=== PATIENT | male | born 1955 | race Caucasian/White ===

== ENCOUNTER → 2020-01-02 06:53 | Outpatient (CLI) | payer OTHER, MEDICARE, SELFPAY ==
--- NOTE | 2020-01-10 16:38 | P.PFT.S_ITS ---
Pulmonary Function Test Referral & Results Date Patient Seen: 01/02/20 Requesting provider: Jennifer More Indication: COPD Results: The spirometry demonstrates an FVC of 3.41 L which is 80% of predicted. The FEV1 was measured at 1.95 L which is 61% of predicted. The FEV1/FVC ratio was 57 which is 76% of predicted. Following the administration of bronchodilator there was a 51% improvement in FEF 25-75%. Lung volumes show an SVC of 3.37 L which is 77% of predicted. The diffusing capacity was measured at 24.77 which is 83% of predicted. No hemoglobin value was provided, so no correction for potential anemia could be made, if appropriate. The maximum voluntary ventilation was reduced Interpretation: This study demonstrates moderate obstructive lung disease based on reduction FEV1. There is some limited evidence of benefit following bronchodilator administration, particularly small airway flow based on improvement in FEF 25- 75% There may be mild restrictive lung disease based on slight reduction SVC There is also very slight reduction in diffusing capacity suggesting an element of disease at the capillary alveolar level, unless patient is anemic of course.
== END ==
PROVIDERS: PCP Student in an Organized Health Care Education/Training Program; Referring Provider Student in an Organized Health Care Education/Training Program; Visit Provider Student in an Organized Health Care Education/Training Program
DX: J44.9 Chronic obstructive pulmonary disease, unspecified (principal)
CPT/HCPCS: 94060; 94726; 94729

== ENCOUNTER → 2020-01-08 09:26 | Outpatient (CLI) | payer OTHER, MEDICARE, SELFPAY ==
--- NOTE | 2020-01-08 11:01 | DIET.PN ---
Diabetes Intake: Initial Assessment Assess: Mr. Steele is a 64 YOM referred for type 2 diabetes. He is newly diagnosed (Nov 2019). He reports dx of metabolic syndrome x 15 yrs ago. At that time he started the [place] diet and regular exercise. He lost 65 lbs and was able to reach normal laboratory values. He slowly began going back to old habits. He was recently diagnosed with COPD which he states he has a family hx of on his mother?s side. He is eager to learn healthy eating habits. He was placed on metformin x 3 wks ago and does not have a glucometer. Labs: Per pt report: A1c: 11.4 FB Meds: 850 mg BID; statin Wt: 227 Ht: 68? BMI: 34.5 DX: Altered nutrition related laboratory values related to impaired glucose metabolism, lack of previous exposure to nutrition information as evidenced by pt report, diagnosis of diabetes, previous diet high in refined carbohydrates. Intervention: 1. Completed intake assessment. Discussed barriers to care. 2. Discussed pathophysiology of diabetes. Reviewed A1c and its correlation to blood glucose numbers. Discussed recommended BG ranges. 3. Discussed importance of self-monitoring, how often, and when to check. Provided demonstration on use of glucometer. 4. Recommended pt monitor FBG and alternating 2 hr PP mealtime. Will request Rx from provider. 5. Reviewed hyper/hypoglycemia and treatment. 6. Reviewed safe disposal of equipment (strip/lancets/insulin needles). 7. Created SMART goals for pt self-care and success. 8. Discussed program curriculum outline and class needs based on individual goals. SMART Goals: 1. Pt would like to lose 15 lb (~5% wt loss) in the next 3 mo through dietary changes and increased exercise. 2. Pt would like to bring A1c down to goal of 7% by monitoring FBG and alternating 2 hr PP mealtime. Monitor/Evaluate: Anticipate excellent compliance. Pt will attend full DSME program. Physiology class scheduled for Jan 10.
== END ==
PROVIDERS: PCP Student in an Organized Health Care Education/Training Program; Referring Provider Student in an Organized Health Care Education/Training Program; Visit Provider Student in an Organized Health Care Education/Training Program
DX: E11.9 Type 2 diabetes mellitus without complications (principal); Z79.84 Long term (current) use of oral hypoglycemic drugs; E66.9 Obesity, unspecified; J44.9 Chronic obstructive pulmonary disease, unspecified; Z68.34 Body mass index [BMI] 34.0-34.9, adult; Z71.3 Dietary counseling and surveillance
CPT/HCPCS: G0108

== ENCOUNTER → 2020-01-10 09:51 | Outpatient (CLI) | payer OTHER, SELFPAY ==
--- NOTE | 2020-01-10 12:24 | DIET.PN ---
Diabetes Physiology: Intervention 1. Diabetes physiology 2. Detecting and treatment of acute and chronic complications 3. Diagnosis of and difference in types of diabetes 4. Self-monitoring and pattern management a. Demonstrate glucometer and control testing b. Explain BG results and action to take when out of range. 5. Foot , eye, dental care 6. Medications a. Oral medication classification b. Injectable c. Insulin i. Injection protocol ii. Other delivery methods
== END ==
PROVIDERS: PCP Student in an Organized Health Care Education/Training Program; Referring Provider Student in an Organized Health Care Education/Training Program; Visit Provider Student in an Organized Health Care Education/Training Program
DX: E11.9 Type 2 diabetes mellitus without complications (principal); Z71.3 Dietary counseling and surveillance
CPT/HCPCS: G0109

== ENCOUNTER → 2020-01-14 14:15 | Outpatient (CLI) | payer OTHER, SELFPAY ==
--- NOTE | 2020-01-14 16:56 | DIET.PN ---
Exercise/Lifestyle change: 1. Importance of exercise 2. FITT (frequency, intensity, time, type) 3. Strength training tips and guidelines 4. Glucose monitoring/ranges before and after 5. Proper foot attire 6. Developing strategies for behavior change 7. SMART Goal Setting 8. Home exercise routine demonstration (as a class)
== END ==
PROVIDERS: PCP Student in an Organized Health Care Education/Training Program; Referring Provider Student in an Organized Health Care Education/Training Program; Visit Provider Student in an Organized Health Care Education/Training Program
DX: E11.9 Type 2 diabetes mellitus without complications (principal); Z71.3 Dietary counseling and surveillance
CPT/HCPCS: G0109

== ENCOUNTER → 2020-01-24 09:48 | Outpatient (CLI) | payer OTHER, SELFPAY ==
--- NOTE | 2020-01-24 11:46 | DIET.PN ---
Diabetes: Healthy Eating 1 Intervention: ? Discussed pathophysiology of diabetes and impact of nutrition/diet on blood sugar control.? Discussed fed versus non-fed state.?? ? Reviewed importance of Balance, Variety, and Moderation. ? Discussed the effect of carbohydrates/protein/fat on blood sugar control.? ? Stressed importance of consistent carbohydrate intake at each meal and provided instructions for recommended servings/portions of carbohydrates/protein per meal. Provided educational material. ? Reviewed carbohydrate counting and measuring carbohydrate content via serving sizes and reading nutrition labels.? Provided handouts.?? ? Discussed the difference between simple versus complex carbohydrates and the effect of fiber on blood sugar control.? Discussed various methods to increase fiber content in diet. ? Discussed the plate method for creating more carbohydrate conscious balanced meals. ? Stressed importance of meal timing and not going >4-5 hours between meals. Encouraged adding protein to evening snack to support glucose control overnight. ?Discussed importance of making dietary habits part of lifestyle change.
== END ==
PROVIDERS: PCP Student in an Organized Health Care Education/Training Program; Referring Provider Student in an Organized Health Care Education/Training Program; Visit Provider Student in an Organized Health Care Education/Training Program
DX: E11.9 Type 2 diabetes mellitus without complications (principal); Z71.3 Dietary counseling and surveillance
CPT/HCPCS: G0109

== ENCOUNTER → 2020-03-10 15:54 | Outpatient (CLI) | payer OTHER, SELFPAY ==
--- NOTE | 2020-03-10 | DI.US.S_ITS ---
PROCEDURE: US CAROTID DOPPLER BI INDICATIONS: DIZINESS AND GIDDINESS, HTN TECHNIQUE: Color and pulse Doppler interrogation was performed of both carotid systems, with image documentation and velocity measurements. COMPARISON: None. FINDINGS: Stenosis calculations are based on SRU (Society of Radiologists in Ultrasound) criteria. The flow velocities and the arterial waveforms are normal within both carotid arterial systems. Atherosclerotic plaque is seen on both sides. The estimated degree of internal carotid artery stenosis is less than 50%. Antegrade flow is confirmed within both vertebral arteries. IMPRESSION: No hemodynamically significant stenosis is seen. Atherosclerotic plaque is noted bilaterally. Dictated by: Luis Olivia M.D. on 03/10/2020 at 16:03 Approved by: Luis Olivia M.D. on 03/10/2020 at 16:03
== END ==
PROVIDERS: PCP Student in an Organized Health Care Education/Training Program; Referring Provider Student in an Organized Health Care Education/Training Program; Visit Provider Student in an Organized Health Care Education/Training Program
DX: I65.23 Occlusion and stenosis of bilateral carotid arteries (principal); R42 Dizziness and giddiness; E78.5 Hyperlipidemia, unspecified; I10 Essential (primary) hypertension
CPT/HCPCS: 93880

== ENCOUNTER → 2020-04-29 13:49 | Outpatient (CLI) | payer OTHER, SELFPAY ==
[2020-04-29 14:03] VITALS: BMI 31.4
== END ==
PROVIDERS: PCP Student in an Organized Health Care Education/Training Program; Referring Provider Student in an Organized Health Care Education/Training Program; Visit Provider Student in an Organized Health Care Education/Training Program
DX: E11.9 Type 2 diabetes mellitus without complications (principal); Z71.3 Dietary counseling and surveillance
CPT/HCPCS: G0109

== ENCOUNTER → 2020-05-07 10:04 | Outpatient (CLI) | payer OTHER, SELFPAY ==
--- NOTE | 2020-05-07 12:23 | DIET.PN ---
Diabetes: Healthy Eating 2 Intervention: Fats effects on glucose, weight, heart disease, cholesterol Sat Vs Unsat Protein- animal and plant based options Low, med, high fat meats Sugar substitutes Sodium Health claims Grocery shopping guidelines Eating away from home Alcohol Sick day guidelines Ketone Testing
== END ==
PROVIDERS: PCP Student in an Organized Health Care Education/Training Program; Referring Provider Student in an Organized Health Care Education/Training Program; Visit Provider Student in an Organized Health Care Education/Training Program
DX: E11.9 Type 2 diabetes mellitus without complications (principal); Z71.3 Dietary counseling and surveillance
CPT/HCPCS: G0109

== ENCOUNTER → 2020-06-03 13:48 | Outpatient (CLI) | payer OTHER, SELFPAY ==
--- NOTE | 2020-06-03 14:27 | DIET.PN ---
Diabetes Follow Up Assess: Met for Mr. Rodriges 3 mo follow up visit. He continues to make positive lifestyle choices including increasing his physical activity, monitoring his BG and eating a carb conscious diet. He has also taken steps to reducing risks including meeting with flavor tank tender and having his microalbumin checked. He has continues to work hard on his progress and appears happy with his continued results. Labs: A1c: 6.4 Meds: 1000mg Met BID; Statin Dietary changes: Low carb (NeuroVigil diet) 30-40 carb/meal Exercise: 5 mi [employer] loop am and pm ; resistance training Ht: 68? Wt: 199.6 BMI: 30.3 BP: 112/60 Nutrition DX: Altered nutrition related laboratory values related to impaired glucose metabolism, lack of previous exposure to nutrition information as evidenced by pt report, diagnosis of diabetes, previous diet high in refined carbohydrates. Intervention: 1. Completed follow up assessment. Reviewed barriers to care. 2. Reviewed new labs and importance of continued BG monitoring. 3. Reviewed SMART goals and made modifications where appropriate including wt management, activity, and A1c goals. 4. Discussed plan for ongoing support. Provided information for continued support and success. SMART goals: Pt completed and exceeded prior goals. New goals? 1. Target goals of 185. 2. A1c goal, low enough to get off of metformin. Monitor/Evaluate: Pt will follow up in 3 mo to discuss new labs and barriers to care.
== END ==
PROVIDERS: PCP Student in an Organized Health Care Education/Training Program; Referring Provider Student in an Organized Health Care Education/Training Program; Visit Provider Student in an Organized Health Care Education/Training Program
DX: E11.9 Type 2 diabetes mellitus without complications (principal); Z71.3 Dietary counseling and surveillance
CPT/HCPCS: G0109

== ENCOUNTER → 2020-06-16 15:16 | Outpatient (CLI) | payer OTHER, SELFPAY ==
[2020-06-17 18:08] LABS: COVID19 Sendout Not Detected (Not Detect)
== END ==
PROVIDERS: PCP Student in an Organized Health Care Education/Training Program; Visit Provider Physician Assistant
DX: Z11.59 Encounter for screening for other viral diseases (principal)
CPT/HCPCS: 87635

== ENCOUNTER 2020-06-19 12:58 | Day surgery (SDC) | payer OTHER, SELFPAY ==
--- NOTE | 2020-06-19 | PATH_ITS ---
[facility] Accession Number: [id number] . 01 Material submitted: . PART A: colon - SIGMOID COLON POLYP 6MM PART B: rectum - RECTAL POLYP 8MM . 01 Clinical history: . SCREENING COLONOSCOPY . 02 Diagnosis: A. Sigmoid Colon, Polyp 6 mm, Biopsy: Tubular adenoma. . B. Rectum, Polyp 8 mm, Biopsy: Fragments of blood only, no colon tissue identified. Additional levels were examined. [facility] 06/23/2020 1553 Local . 02 Electronically signed: . Radha Suarez MD, Pathologist NPI- [id number] . 01 Gross description: . Part A: SIGMOID COLON POLYP 6MM: Received in formalin is 1 fragment(s) of álvarez, soft tissue measuring 0.3 x 0.3 x 0.3 cm submitted entirely in 1 cassette(s) Part B: RECTAL POLYP 8MM: Received in formalin is 1 fragment(s) of álvarez, soft tissue measuring 0.7 x 0.1 x 0.1 cm submitted entirely in 1 cassette(s) /QBJ 06/20/2020 0751 Local . 02 Pathologist provided ICD-10: D12.5 . 02 CPT . 036400, 502202 Performed at: 01 [facility] [address], [place], [place] [id number] MD Beck Monroe MD Phone: [phone] Performed at: 02 [facility] [address] [place], [place] [id number] MD Radha Suarez MD Phone: [phone]
--- NOTE | 2020-06-19 11:46 | PM.HP.1 ---
History of Present Illness History of Present Illness Date Patient Seen: 06/19/20 Time Patient Seen: 14:16 Chief complaint: SCREENING COLONOSCOPY Narrative: 64 year old male comes in today for consideration of a screening colonoscopy. Last colonoscopy in 2010 significant for two small tubular adenomas at the hepatic flexure. FIT positive on 01/29/20. There have been no lower GI symptoms suggesting disease such as change in bowel habits, bleeding, abdominal pain or anemia. There's been no family history of colon cancer or colon polyps. Overall health issues have been stable, including no major cardiac events for at least 6 weeks. PCP: Dr. More Past Medical history: right ankle fracture, cast 04/26 plantar fasciitis, 1992 Durbin's neuroma ' Actinic keratosis, cryo 80s Wet macular degeneration right eye (06/29) Floaters, 2002 Cataract both eye (06/27) Melanoma (2003) Asthma (2003) Diabetes mellitus type 2 Hyperlipidemia Hypertension Obstructive sleep apnea COPD Mild intermittent asthma Allergic rhinitis Diffusions contracture BPH with urinary obstruction Obesity History of colon polyps Rotator Cuff Tendonitiis Past Surgical History: left ankle fracture orif 2011, 2013 Bunions, 1994 (left), 1995 (right) Durbin's neuroma, 1994 Basal cell neri, 80s melanoma exc cataracts, bilateral, 2014 Family History: Reviewed history from 06/18/2018 and no changes required: Melanoma bro, age 35 COPD mom, non-smoker Stomach ca, dad Famliy Hx Coronary Heart Disease male < 55 dad Macular degeneration in mom. 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: Education: Meds Home Medications and Allergies Home Medications Medication Instructions Recorded Confirmed Type terazosin 2 mg PO QDAY #0 11/20/16 06/19/20 History triamcinolone acetonide [Nasacort] 1 puff INTRANASAL PRN PRN #0 11/20/16 History metformin 1,000 mg PO BID 06/19/20 06/19/20 History Allergies Allergy/AdvReac Type Severity Reaction Status Date / Time Penicillins Allergy Mild Rash Verified 06/19/20 13:29 NSAIDS (Non-Steroidal Allergy Unknown Verified 06/19/20 13:29 Anti-Inflamma [NSAIDS (NON-STEROIDAL ANTI-INFLAMMA] Review of Systems Review of Systems ROS: Yes All systems reviewed with the patient and are negative except as otherwise documented Exam Narrative Exam Narrative: GENERAL: Alert and oriented, appearing stated age and in no acute distress. HEENT: Head normocephalic/atraumatic. Neck soft and supple, no lymphadenopathy. LUNGS: Clear to ausculation bilaterally, no wheezes, rhonchi or rales. CV: Normal S1 and S2 with regular rate and rhythm, no audible murmurs, rubs or gallops. ABDOMEN: Soft, non-tender, non-distended, no organomegaly. Positive bowel sounds. EXTREMITIES: No clubbing, cyanosis, or edema. NEURO: Cranial nerves II through XII grossly intact, no focal deficits. PSYCH: Alert and oriented x 3. SKIN: No concerning lesions. Assessment & Plan Assessment & Plan narrative: 1. History of colon polyps 2. Positive FIT test 3. Screening for colon cancer Plan for colonoscopy. The nature and character of the procedure as well as anticipated results were discussed. The possibility of not completing the procedure was also discussed. Possible complications including aspiration pneumonia, bleeding, perforation and reaction to medications either for sedation or preparation and missed lesions were discussed. Questions were answered and proceeding to the colonoscopy was elected. Informed consent signed. I sincerely appreciate the referral allowing me to participate in this patient's care. Please contact me with any questions or concerns.
--- NOTE | 2020-06-19 11:51 | P.OP.ENDO_ITS ---
Operative Date/Time/Diagnoses Date of procedure: 06/19/20 Time of procedure: 14:32 Pre-op diagnosis: 1. History of colon polyps 2. Positive FIT test 3. Screening for colon cancer Post-op diagnosis: other (Sigmoid polyp x1, 6 mm, removed with cold biopsy forceps, rectal polyp x1, 8 mm, lifted with methylene blue and removed with cold snare, left-sided diverticulosis, external hemorrhoids) Procedure & Clinicians Study performed: Colonoscopy Same procedure as scheduled: Yes Indications: 1. History of colon polyps 2. Positive FIT test 3. Screening for colon cancer Surgeon: Jennifer More Procedure Notes SCOAP/Timeout: 14:31 Procedure in detail: ENDOSCOPIST: Jennifer More MD Sedation RN: Kia Jones RN Sedation start time: 2:32 p.m. Sedation end time: 15:01 PROCEDURE: Colonoscopy with methylene blue lift and cold snare INDICATIONS: 1. History of colon polyps 2. Positive FIT test 3. Screening for colon cancer MEDICATION: Levsin 0.125 mg sublingual, incremental doses of Versed and fentanyl until appropriate level sedation achieved. ASA CLASS: 2 CECAL WITHDRAWAL TIME: 24 minutes COMPLICATIONS: None. EXTENT OF PROCEDURE: Cecum. QUALITY OF PREP: Good with portions of liquid stool. PROCEDURE: Prior to insertion of the colonoscope, a digital rectal examination was accomplished with circumferential palpation of the distal rectal mucosa without significant findings being noted. The high-definition colonoscope was passed into the rectum in the usual fashion and advanced over to the cecum without difficulty. The ileocecal valve, appendiceal stoma, and medial wall all could be inspected and no abnormalities were seen. ASCENDING COLON: As the colonoscope was withdrawn, care was taken to expose and inspect the haustral folds and no abnormalities were seen. HEPATIC FLEXURE: Normal no polyps, diverticula or other abnormalities. TRANSVERSE COLON: Normal no polyps, diverticula or other abnormalities. DESCENDING COLON: Normal no polyps, diverticula or other abnormalities. SIGMOID COLON: 6 mm polyp removed with cold biopsy forceps. Moderate diverticulosis. RECTUM: 8 mm polyp lifted with methylene blue and removed with cold snare. Hemoclip place with excellent hemostasis. J maneuver was produced. There was no significant perianal disease. The J maneuver was broken. The remainder of the rectum was inspected and there was minor external hemorrhoid disease, non- thrombosed. The scope was withdrawn. IMPRESSION: 1. Sigmoid polyp x1, 6 mm, removed with cold biopsy forceps 2. Rectal polyp x1, 8 mm, lifted with methylene blue and removed with cold snar e, hemoclip placed x1 3. Left-sided diverticulosis, moderate 4. External hemorrhoid, nonthrombosed PLAN: 1. Follow-up in clinic status post pathology results. The possibility of a missed lesion including a malignancy has been discussed with the patient previously. Potential alarm symptoms have been discussed and should be reported immediately. Complications: none Post-procedure Recommendations: Will call with biopsy results Follow up: weeks (2) Disposition: PACU
[2020-06-19] MEDS: LACTATED RINGERS 1,000 ML 200 ML IV (13:34)
[2020-06-19] MEDS: HYOSCYAMINE 0.125 MG TABLET PO (13:46)
[2020-06-19 14:04] VITALS: BMI 29.7
[2020-06-19 14:08] VITALS: BP 127/81; PULSE 86; RESP 20; TEMP 36.8; O2SAT 97
[2020-06-19] MEDS: MIDAZOLAM 5 MG/5 ML VIAL IV ×2 (14:32→14:45)
[2020-06-19] MEDS: fentaNYL 250 MCG/5 ML INJ IV (14:32)
[2020-06-19] MEDS: METHYLENE BLUE 50 MG/10 ML VIAL INJ (15:00)
[2020-06-19 15:08] VITALS: BP 105/70; PULSE 75; RESP 11; TEMP 36.2; O2SAT 98
[2020-06-19 15:11] VITALS: BP 104/71; PULSE 73; RESP 12; O2SAT 96
[2020-06-19 15:16] VITALS: BP 99/70; PULSE 72; RESP 16; O2SAT 99
[2020-06-19 15:22] VITALS: BP 106/64; PULSE 70; RESP 16; O2SAT 98
[2020-06-19 15:35] VITALS: BP 105/60; PULSE 70; RESP 16; O2SAT 98
== END 2020-06-19 15:40 | disposition home or self-care (01) ==
PROVIDERS: PCP Student in an Organized Health Care Education/Training Program; Referring Provider Student in an Organized Health Care Education/Training Program; Visit Provider Student in an Organized Health Care Education/Training Program
PROC: 0DJD8ZZ Inspection of Lower Intestinal Tract, Via Natural or Artificial Opening Endoscopic (ICD-10-PCS; CPT 45378; principal; 2020-06-19 14:30)
DX: R19.5 Other fecal abnormalities (principal); K57.30 Diverticulosis of large intestine without perforation or abscess without bleeding; K64.4 Residual hemorrhoidal skin tags; D12.5 Benign neoplasm of sigmoid colon
CPT/HCPCS: 45381; 45385; 45380; J2250; J3010; Q9968

== ENCOUNTER 2021-03-09 13:00 | Outpatient (RCR) | payer OTHER, SELFPAY ==
--- NOTE | 2021-02-02 17:40 | PT.OIE ---
Current Diagnoses Posterior tibial tendinitis, right leg (02/02/21) Posterior tibial tendinitis, left leg (02/02/21) Difficulty in walking, not elsewhere classified (02/02/21) Abnormal posture (02/02/21) Visit Care Team Role Provider Type Jennifer More MD Family Provider Physician Primary Care Provider Specialty: Family Practice Address: [address] [place] [address], [id number] Email: [email or web address] Salbador Vigil DPM Attending Provider Non-Staff Referring Provider Specialty: Podiatry Address: [address] [place] [address], [phone] Email: Physical Therapy Initial Evaluation PT-OP-A Visit Information Start: 02/02/21 14:17 Freq: Status: Active Protocol: Document 02/02/21 16:45 AW (Rec: 02/02/21 14:18 AW [email or web address]) Out-Patient Physical Therapy Visit Information Visit Information Visit Type Initial Evaluation Visit Start Time 16:00 Visit Stop Time 16:45 Total Visit Minutes 45 Visit Number 1 Number of PORTABLE SAWMILL OPERATOR Visits 0 Evaluation Information Evaluation Date 02/02/21 PT-OP-B Current Condition Start: 02/02/21 14:17 Freq: Status: Active Protocol: Document 02/02/21 16:45 AW (Rec: 02/02/21 16:55 AW [id number]) Current Condition History of Current Condition Onset Date a couple of years Current Complaints left medial ankle pain History of Current Condition Pt reports long history of problems with his left foot and ankle. He had bunionectomy in 1992 and was then diagnosed with plantar fasciitis and arch problems. Podiatry prescribed orthotics which pt has continued to use since that time. He states he typically wears highly supportive shoes or hiking boots. Pt also reports spiral fibula fracture ~10 years ago and R ankle avulsion fracture ~7 years ago. He gets 4-5/10 medial ankle pain if he goes for walks without doing his stretches. Pain is sharp but will go away if he gets off his feet for ~ 10 minutes and then he is able to carry on. He states the pain is not predictable. It is usually not immediate and does not bother him until he has walked at least 10-15 minutes. Pt denies history of falls. Incidentally, he complains of bilateral knee pain - right worse than left. Prior Treatments and Tests PT following bunionectomy in mid- with good outcome Future Testing and Treatments Planned None identified. Pt is being followed by podiatry. 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 Treatment Goals Patient/Caregiver Goals Pt would like to reduce pain, learn and refine exercises to prevent and alleviate pain, and ultimately to be able to walk 10 miles on uneven terrain without pain. 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 Current Functional Impairments (Reported) Functional Limitations- Mobility/Gait Pain with walking 10-15 minutes Personal Factors Other Personal Factors That May Effect + positive association with Therapy/Recovery movement + positive prior experience with PT - history of ankle fracture and repeated sprains PT-OP-C Subjective Start: 02/02/21 14:17 Freq: Status: Active Protocol: Document 02/02/21 16:45 AW (Rec: 02/02/21 17:25 AW [email or web address]) Patient Questionnaires Foot & Ankle Ability Measure- ADL and Sports FAAM-ADL Score 75 FAAM-ADL Impairment 1 to 19% Impaired (Score 67-83 ) Lower Extremity Functional Scale LEFS Score 68 LEFS Impairment 1 to 19% Impaired (Score 63-79 ) OP-PT Pain Assessment Pain Assessment Grid Paper Pain Assessment Grid Completed Yes Location medial left ankle Intensity 4 Scale Used Numeric (0 - 10) Description Sharp Frequency Intermittent PT-OP-F Manual Assessment Start: 02/02/21 14:17 Freq: Status: Active Protocol: Document 02/02/21 16:45 AW (Rec: 02/02/21 17:25 AW [email or web address]) Manual Assessments Soft Tissue Assessment Soft Tissue Mobility Assessment Edema along path of posterior tibialis tendon. No point tenderness at navicular tubercle, calcaneus, proximal posterior tib. Joint Mobility Assessment Joint Mobility Assessment Reduced talar glides bilaterally (left more affected than right) PT-OP-G Mobility & Gait Start: 02/02/21 14:17 Freq: Status: Active Protocol: Document 02/02/21 16:45 AW (Rec: 02/02/21 17:25 AW [email or web address]) OP Gait Assessment Gait Gait Assistance Required: Independent Distance (Feet) 100 Assistive Devices Assistive Device None Gait Deviations General Gait Pattern Antalgic Factors Limiting Gait Function Factors Limiting Gait Function Limited Range of Motion,Pain Comments Gait Comments Slightly decreased LLE stance time. Mild pronation (left > right). PT-OP-K Range of Motion Start: 02/02/21 14:17 Freq: Status: Active Protocol: Document 02/02/21 16:45 AW (Rec: 02/02/21 17:25 AW [email or web address]) Ankle and Foot Goniometric Range of Motion Ankle and Foot Left Active Ankle/Foot ROM WFL No Testing Position Supine Dorsiflexion with Knee Flexed 2 Dorsiflexion with Knee Extended 0 Inversion 10 Eversion 20 Comments DF PROM limited Right Active Ankle/Foot ROM WFL No Testing Position Supine Dorsiflexion with Knee Flexed 5 Dorsiflexion with Knee Extended 2 Inversion 20 Eversion 20 Comments DF PROM limited Toe Range of Motion Toe Great Toe Comments Left great toe extension restricted. PT-OP-M Strength Start: 02/02/21 14:17 Freq: Status: Active Protocol: Document 02/02/21 16:45 AW (Rec: 02/02/21 17:25 AW [email or web address]) Ankle/Foot Strength Ankle and Foot Manual Muscle Testing Left Dorsiflexion (L4) 5 Normal Plantarflexion (S1) 4 Good Inversion 4+ Good+ Eversion (S1) 4+ Good+ Right Dorsiflexion (L4) 5 Normal Plantarflexion (S1) 4+ Good+ Inversion 5 Normal Eversion (S1) 5 Normal PT-OP-Q Treatments Start: 02/02/21 14:17 Freq: Status: Active Protocol: Document 02/02/21 16:45 AW (Rec: 02/02/21 17:39 AW [email or web address]) Therapeutic Exercises Standing Exercises soleus stretch Standing Exercise Name soleus stretch Side left Reps/Minutes 30 SH x 4 Comments cued >weightbearing on left foot, heel on floor gastroc stretch Standing Exercise Name gastroc stretch Side left Reps/Minutes 30 SH x 4 Comments cued split stance and hips extended Self-Care/Home Management Treatment Education Patient Education Home Exercise Program Other Education Provided gastroc and soleus stretches for home PT-OP-T Assessment and Plan Start: 02/02/21 14:17 Freq: Status: Active Protocol: Document 02/02/21 16:45 AW (Rec: 02/02/21 17:39 AW [email or web address]) Physical Therapy Assessment Rehab Potential Rehabilitation Potential Excellent Evaluation Complexity Number of Personal Factors/Comorbidities 1-2 Number of Body Systems Impaired 1-2 Clinical Presentation at Evaluation Stable Impairments Impairments Balance,Functional Activities, Functional Mobility,Gait,Pain, ROM,Soft Tissue Mobility, Strength Goals Three Impairment strength/stability Short Term Goal (STG) Pt will improve left ankle strength to 5/5 all planes STG Duration 4 weeks - 03/02/21 Halfway Goal (LTG) Pt will perform single leg stance 30 seconds on left leg to demonstrate improved ankle stability. Two Impairment ROM Short Term Goal (STG) Pt will increase left ankle dorsiflexion to five degrees or greater with knee flexed STG Duration 4 weeks - 03/02/21 Halfway Goal (LTG) Pt will descend stairs without heel lift and without pain to demonstrate functional ROM. LTG Duration 2 months 04/04/21 One Impairment gait Short Term Goal (STG) Pt will walk 30 minutes on paved surface without increase in baseline pain STG Duration 4 weeks - 03/02/21 Transit Clerk Goal (LTG) Pt will walk 60 minutes on uneven surface with no left ankle pain LTG Duration 2 months - 04/04/21 Assessment Summary Assessment Nigel is a 65 yo man seen for outpatient PT evaluation with complaint of left medial ankle pain and plantar foot pain which have increased over the past few years. He has a long history of foot and ankle injuries and surgeries which predispose him to ankle instability. Insufficient length of plantar flexors is his most significant perpetuating factor. His exam is consistent with posterior tibialis tendonitis. He will benefit from skilled PT to address muscle length, strength, and stability deficits to improve his gait for full participation in recreational activities. Physical Therapy Plan Frequency and Duration Frequency of Treatment 1-2x/week Duration of Treatment 2 months Plan of Care Start Date 02/02/21 Plan of Care End Date 04/04/21 Therapeutic Interventions Therapeutic Interventions Balance Training,Gait Training ,Home Exercise Program,Joint Mobilizations,Manual Therapy, Neuromuscular Re-education, Orthotic/Prosthetic Management ,Patient/Caregiver Education, Self-Care/Home Management,Soft Tissue Mobilization,Taping, Therapeutic Activities, Therapeutic Exercises Modalities Cold Pack/Ice Massage Next Visit Focus/Plan Next Note Type Treatment Note Next Visit Plan Review gastroc and soleus stretches for form; initiate joint mob for talar glide; intrinsic foot muscle strengthening focused on supporting medial longitudinal arch
--- NOTE | 2021-02-02 17:40 | PT.OPPOC ---
Physical, Occupational & Speech Therapy At [facility] Current Diagnoses Posterior tibial tendinitis, right leg (02/02/21) Posterior tibial tendinitis, left leg (02/02/21) Difficulty in walking, not elsewhere classified (02/02/21) Abnormal posture (02/02/21) Visit Care Team Role Provider Type Jennifer More MD Family Provider Physician Primary Care Provider Specialty: Family Practice Address: [address] [place] [address], [facility] [place], [address] Email: [email or web address] Salbador Vigil DPM Attending Provider Non-Staff Referring Provider Specialty: Podiatry Address: [address] [place] [address], [phone] Email: Plan Of Care PT-OP-T Assessment and Plan Start: 02/02/21 14:17 Freq: Status: Active Protocol: Document 02/02/21 16:45 AW (Rec: 02/02/21 17:39 AW [email or web address]) Physical Therapy Assessment Rehab Potential Rehabilitation Potential Excellent Evaluation Complexity Number of Personal Factors/Comorbidities 1-2 Number of Body Systems Impaired 1-2 Clinical Presentation at Evaluation Stable Impairments Impairments Balance,Functional Activities, Functional Mobility,Gait,Pain, ROM,Soft Tissue Mobility, Strength Goals Three Impairment strength/stability Short Term Goal (STG) Pt will improve left ankle strength to 5/5 all planes STG Duration 4 weeks - 03/02/21 Retirement Goal (LTG) Pt will perform single leg stance 30 seconds on left leg to demonstrate improved ankle stability. Two Impairment ROM Short Term Goal (STG) Pt will increase left ankle dorsiflexion to five degrees or greater with knee flexed STG Duration 4 weeks - 03/02/21 Retirement Goal (LTG) Pt will descend stairs without heel lift and without pain to demonstrate functional ROM. LTG Duration 2 months 04/04/21 One Impairment gait Short Term Goal (STG) Pt will walk 30 minutes on paved surface without increase in baseline pain STG Duration 4 weeks - 03/02/21 Retirement Goal (LTG) Pt will walk 60 minutes on uneven surface with no left ankle pain LTG Duration 2 months - 04/04/21 Assessment Summary Assessment Nigel is a 65 yo man seen for outpatient PT evaluation with complaint of left medial ankle pain and plantar foot pain which have increased over the past few years. He has a long history of foot and ankle injuries and surgeries which predispose him to ankle instability. Insufficient length of plantar flexors is his most significant perpetuating factor. His exam is consistent with posterior tibialis tendonitis. He will benefit from skilled PT to address muscle length, strength, and stability deficits to improve his gait for full participation in recreational activities. Physical Therapy Plan Frequency and Duration Frequency of Treatment 1-2x/week Duration of Treatment 2 months Plan of Care Start Date 02/02/21 Plan of Care End Date 04/04/21 Therapeutic Interventions Therapeutic Interventions Balance Training,Gait Training ,Home Exercise Program,Joint Mobilizations,Manual Therapy, Neuromuscular Re-education, Orthotic/Prosthetic Management ,Patient/Caregiver Education, Self-Care/Home Management,Soft Tissue Mobilization,Taping, Therapeutic Activities, Therapeutic Exercises Modalities Cold Pack/Ice Massage Next Visit Focus/Plan Next Note Type Treatment Note Next Visit Plan Review gastroc and soleus stretches for form; initiate joint mob for talar glide; intrinsic foot muscle strengthening focused on supporting medial longitudinal arch Plan of Care Dates Plan of Care Start Date 02/02/21 Plan of Care End Date 04/04/21 Electronically Signed by: Jeanie Lan PT 02/02/21 [id number] Please Sign and Return: I have reviewed this Plan of Care and certify that the skilled therapy services above are required to meet the patient?s needs. Physician Signature Date Printed Name and Credentials Clinical Instructor Signature Printed Name and Credentials
--- NOTE | 2021-02-09 16:45 | PT.OTN ---
Current Diagnoses Posterior tibial tendinitis, right leg (02/09/21) Posterior tibial tendinitis, left leg (02/09/21) Difficulty in walking, not elsewhere classified (02/09/21) Abnormal posture (02/09/21) Physical Therapy Treatment Note PT-OP-A Visit Information Start: 02/02/21 14:17 Freq: Status: Active Protocol: Document 02/09/21 16:45 AW (Rec: 02/09/21 17:16 AW [email or web address]) Out-Patient Physical Therapy Visit Information Visit Information Visit Type Treatment Note Visit Start Time 16:00 Visit Stop Time 16:45 Total Visit Minutes 45 Visit Number 2 Number of BROKER ASSOCIATE Visits 0 Evaluation Information Evaluation Date 02/02/21 PT-OP-B Current Condition Start: 02/02/21 14:17 Freq: Status: Active Protocol: Document 02/02/21 16:45 AW (Rec: 02/02/21 16:55 AW [id number]) Current Condition History of Current Condition Onset Date a couple of years Current Complaints left medial ankle pain History of Current Condition Pt reports long history of problems with his left foot and ankle. He had bunionectomy in 1992 and was then diagnosed with plantar fasciitis and arch problems. Podiatry prescribed orthotics which pt has continued to use since that time. He states he typically wears highly supportive shoes or hiking boots. Pt also reports spiral fibula fracture ~10 years ago and R ankle avulsion fracture ~7 years ago. He gets 4-5/10 medial ankle pain if he goes for walks without doing his stretches. Pain is sharp but will go away if he gets off his feet for ~ 10 minutes and then he is able to carry on. He states the pain is not predictable. It is usually not immediate and does not bother him until he has walked at least 10-15 minutes. Pt denies history of falls. Incidentally, he complains of bilateral knee pain - right worse than left. Prior Treatments and Tests PT following bunionectomy in mid- with good outcome Future Testing and Treatments Planned None identified. Pt is being followed by podiatry. 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 Treatment Goals Patient/Caregiver Goals Pt would like to reduce pain, learn and refine exercises to prevent and alleviate pain, and ultimately to be able to walk 10 miles on uneven terrain without pain. 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 Current Functional Impairments (Reported) Functional Limitations- Mobility/Gait Pain with walking 10-15 minutes Personal Factors Other Personal Factors That May Effect + positive association with Therapy/Recovery movement + positive prior experience with PT - history of ankle fracture and repeated sprains PT-OP-C Subjective Start: 02/02/21 14:17 Freq: Status: Active Protocol: Document 02/09/21 16:45 AW (Rec: 02/09/21 17:17 AW [email or web address]) OP-PT Subjective Patient Comments Patient Comments Pt reports good results with simple gastroc and soleus stretches. I walked the [address] twice this morning and didn't have any pain. PT-OP-F Manual Assessment Start: 02/02/21 14:17 Freq: Status: Active Protocol: Document 02/02/21 16:45 AW (Rec: 02/02/21 17:25 AW [email or web address]) Manual Assessments Soft Tissue Assessment Soft Tissue Mobility Assessment Edema along path of posterior tibialis tendon. No point tenderness at navicular tubercle, calcaneus, proximal posterior tib. Joint Mobility Assessment Joint Mobility Assessment Reduced talar glides bilaterally (left more affected than right) PT-OP-G Mobility & Gait Start: 02/02/21 14:17 Freq: Status: Active Protocol: Document 02/02/21 16:45 AW (Rec: 02/02/21 17:25 AW [email or web address]) OP Gait Assessment Gait Gait Assistance Required: Independent Distance (Feet) 100 Assistive Devices Assistive Device None Gait Deviations General Gait Pattern Antalgic Factors Limiting Gait Function Factors Limiting Gait Function Limited Range of Motion,Pain Comments Gait Comments Slightly decreased LLE stance time. Mild pronation (left > right). PT-OP-K Range of Motion Start: 02/02/21 14:17 Freq: Status: Active Protocol: Document 02/02/21 16:45 AW (Rec: 02/02/21 17:25 AW [email or web address]) Ankle and Foot Goniometric Range of Motion Ankle and Foot Left Active Ankle/Foot ROM WFL No Testing Position Supine Dorsiflexion with Knee Flexed 2 Dorsiflexion with Knee Extended 0 Inversion 10 Eversion 20 Comments DF PROM limited Right Active Ankle/Foot ROM WFL No Testing Position Supine Dorsiflexion with Knee Flexed 5 Dorsiflexion with Knee Extended 2 Inversion 20 Eversion 20 Comments DF PROM limited Toe Range of Motion Toe Great Toe Comments Left great toe extension restricted. PT-OP-M Strength Start: 02/02/21 14:17 Freq: Status: Active Protocol: Document 02/02/21 16:45 AW (Rec: 02/02/21 17:25 AW [email or web address]) Ankle/Foot Strength Ankle and Foot Manual Muscle Testing Left Dorsiflexion (L4) 5 Normal Plantarflexion (S1) 4 Good Inversion 4+ Good+ Eversion (S1) 4+ Good+ Right Dorsiflexion (L4) 5 Normal Plantarflexion (S1) 4+ Good+ Inversion 5 Normal Eversion (S1) 5 Normal PT-OP-Q Treatments Start: 02/02/21 14:17 Freq: Status: Active Protocol: Document 02/09/21 16:45 AW (Rec: 02/09/21 17:16 AW [email or web address]) Therapeutic Exercises Sitting Exercises resisted great toe flexion Sitting Exercise Name resisted great toe flexion Side left Resistance level 2 Equipment Used TB Reps/Minutes 10 reps x 2 Comments long-sitting resisted ankle inv/ev/pf Sitting Exercise Name resisted ankle inv/ev/pf Side left Resistance level 2 Equipment Used TB Reps/Minutes 10 reps x 2 Comments long-sitting; cues to avoid hip rotation marble pick up driver Sitting Exercise Name marble pick up driver Side left Reps/Minutes 6 reps x 4 Comments focus on great toe flexion Standing Exercises heel raise Standing Exercise Name heel raise Side bilateral Equipment Used 6 step Reps/Minutes 15 reps Comments cued slow eccentric phase soleus stretch Standing Exercise Name soleus stretch Side left Reps/Minutes 30 SH x 4 Comments cued >weightbearing on left foot, heel on floor gastroc stretch Standing Exercise Name gastroc stretch Side left Reps/Minutes 30 SH x 4 Comments cued split stance and hips extended Manual Therapy Treatment Joint Mobilizations great toe flexion Joint great toe flexion Grade III Body Position Hooklying Reps/Duration 4 min posterior talar glide Joint posterior talar glide Grade III Body Position Supine Reps/Duration 5 min Comments with active DF Self-Care/Home Management Treatment Education Patient Education Home Exercise Program Other Education Added resisted ankle all planes and resisted great toe flexion PT-OP-T Assessment and Plan Start: 02/02/21 14:17 Freq: Status: Active Protocol: Document 02/09/21 16:45 AW (Rec: 02/09/21 17:16 AW [email or web address]) Physical Therapy Assessment Goals Three Impairment strength/stability Short Term Goal (STG) Pt will improve left ankle strength to 5/5 all planes STG Duration 4 weeks - 03/02/21 Medical Lab Tech Instructor Goal (LTG) Pt will perform single leg stance 30 seconds on left leg to demonstrate improved ankle stability. Two Impairment ROM Short Term Goal (STG) Pt will increase left ankle dorsiflexion to five degrees or greater with knee flexed STG Duration 4 weeks - 03/02/21 Halfway Goal (LTG) Pt will descend stairs without heel lift and without pain to demonstrate functional ROM. LTG Duration 2 months 04/04/21 One Impairment gait Short Term Goal (STG) Pt will walk 30 minutes on paved surface without increase in baseline pain STG Duration 4 weeks - 03/02/21 Halfway Goal (LTG) Pt will walk 60 minutes on uneven surface with no left ankle pain LTG Duration 2 months - 04/04/21 Assessment Summary Assessment Treatment focused on ankle and great toe mobility with good response to joint moblizations and passive gastroc stretch. Pt lacks great toe flexion ROM affecting gait stability. Physical Therapy Plan Frequency and Duration Frequency of Treatment 1-2x/week Duration of Treatment 2 months Plan of Care Start Date 02/02/21 Plan of Care End Date 04/04/21 Therapeutic Interventions Therapeutic Interventions Balance Training,Gait Training ,Home Exercise Program,Joint Mobilizations,Manual Therapy, Neuromuscular Re-education, Orthotic/Prosthetic Management ,Patient/Caregiver Education, Self-Care/Home Management,Soft Tissue Mobilization,Taping, Therapeutic Activities, Therapeutic Exercises Modalities Cold Pack/Ice Massage Next Visit Focus/Plan Next Note Type Treatment Note Next Visit Plan Review gastroc and soleus stretches for form; intrinsic foot muscle strengthening focused on supporting medial longitudinal arch; ankle stability
--- NOTE | 2021-02-12 15:13 | PT.OTN ---
Current Diagnoses Posterior tibial tendinitis, right leg (02/12/21) Posterior tibial tendinitis, left leg (02/12/21) Difficulty in walking, not elsewhere classified (02/12/21) Abnormal posture (02/12/21) Physical Therapy Treatment Note PT-OP-A Visit Information Start: 02/02/21 14:17 Freq: Status: Active Protocol: Document 02/12/21 14:38 MA (Rec: 02/12/21 15:13 MA [id number]) Out-Patient Physical Therapy Visit Information Visit Information Visit Type Treatment Note Visit Start Time 14:35 Visit Stop Time 15:13 Total Visit Minutes 38 Visit Number 3 Number of TELESCOPE OPERATOR Visits 1 PT-OP-B Current Condition Start: 02/02/21 14:17 Freq: Status: Active Protocol: Document 02/02/21 16:45 AW (Rec: 02/02/21 16:55 AW [id number]) Current Condition History of Current Condition Onset Date a couple of years Current Complaints left medial ankle pain History of Current Condition Pt reports long history of problems with his left foot and ankle. He had bunionectomy in 1992 and was then diagnosed with plantar fasciitis and arch problems. Podiatry prescribed orthotics which pt has continued to use since that time. He states he typically wears highly supportive shoes or hiking boots. Pt also reports spiral fibula fracture ~10 years ago and R ankle avulsion fracture ~7 years ago. He gets 4-5/10 medial ankle pain if he goes for walks without doing his stretches. Pain is sharp but will go away if he gets off his feet for ~ 10 minutes and then he is able to carry on. He states the pain is not predictable. It is usually not immediate and does not bother him until he has walked at least 10-15 minutes. Pt denies history of falls. Incidentally, he complains of bilateral knee pain - right worse than left. Prior Treatments and Tests PT following bunionectomy in mid- with good outcome Future Testing and Treatments Planned None identified. Pt is being followed by podiatry. Pt and medical surgery nurse share the goal of pt being satisfactorily supported by Di vuong. Treatment Goals Patient/Caregiver Goals Pt would like to reduce pain, learn and refine exercises to prevent and alleviate pain, and ultimately to be able to walk 10 miles on uneven terrain without pain. 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 Current Functional Impairments (Reported) Functional Limitations- Mobility/Gait Pain with walking 10-15 minutes Personal Factors Other Personal Factors That May Effect + positive association with Therapy/Recovery movement + positive prior experience with PT - history of ankle fracture and repeated sprains PT-OP-C Subjective Start: 02/02/21 14:17 Freq: Status: Active Protocol: Document 02/12/21 14:38 MA (Rec: 02/12/21 15:13 MA [id number]) OP-PT Subjective Patient Comments Patient Comments Pt has been able to start walking on uneven surfaces using walking stick with no increase in pain. He walks about 5 miles around [facility] most days. PT-OP-F Manual Assessment Start: 02/02/21 14:17 Freq: Status: Active Protocol: Document 02/02/21 16:45 AW (Rec: 02/02/21 17:25 AW [email or web address]) Manual Assessments Soft Tissue Assessment Soft Tissue Mobility Assessment Edema along path of posterior tibialis tendon. No point tenderness at navicular tubercle, calcaneus, proximal posterior tib. Joint Mobility Assessment Joint Mobility Assessment Reduced talar glides bilaterally (left more affected than right) PT-OP-G Mobility & Gait Start: 02/02/21 14:17 Freq: Status: Active Protocol: Document 02/02/21 16:45 AW (Rec: 02/02/21 17:25 AW [email or web address]) OP Gait Assessment Gait Gait Assistance Required: Independent Distance (Feet) 100 Assistive Devices Assistive Device None Gait Deviations General Gait Pattern Antalgic Factors Limiting Gait Function Factors Limiting Gait Function Limited Range of Motion,Pain Comments Gait Comments Slightly decreased LLE stance time. Mild pronation (left > right). PT-OP-K Range of Motion Start: 02/02/21 14:17 Freq: Status: Active Protocol: Document 02/02/21 16:45 AW (Rec: 02/02/21 17:25 AW [email or web address]) Ankle and Foot Goniometric Range of Motion Ankle and Foot Left Active Ankle/Foot ROM WFL No Testing Position Supine Dorsiflexion with Knee Flexed 2 Dorsiflexion with Knee Extended 0 Inversion 10 Eversion 20 Comments DF PROM limited Right Active Ankle/Foot ROM WFL No Testing Position Supine Dorsiflexion with Knee Flexed 5 Dorsiflexion with Knee Extended 2 Inversion 20 Eversion 20 Comments DF PROM limited Toe Range of Motion Toe Great Toe Comments Left great toe extension restricted. PT-OP-M Strength Start: 02/02/21 14:17 Freq: Status: Active Protocol: Document 02/02/21 16:45 AW (Rec: 02/02/21 17:25 AW [email or web address]) Ankle/Foot Strength Ankle and Foot Manual Muscle Testing Left Dorsiflexion (L4) 5 Normal Plantarflexion (S1) 4 Good Inversion 4+ Good+ Eversion (S1) 4+ Good+ Right Dorsiflexion (L4) 5 Normal Plantarflexion (S1) 4+ Good+ Inversion 5 Normal Eversion (S1) 5 Normal PT-OP-Q Treatments Start: 02/02/21 14:17 Freq: Status: Active Protocol: Document 02/12/21 14:38 MA (Rec: 02/12/21 15:13 MA [id number]) Gym Equipment Shuttle Recovery Unilateral Calf Raise Resistance 50# Shuttle Recovery Platform Stable Reps/Time 2x10 Therapeutic Exercises Sitting Exercises resisted great toe flexion Sitting Exercise Name resisted great toe flexion Side left Resistance level 2 Equipment Used TB Reps/Minutes 10 reps x 2 Comments long-sitting resisted ankle inv/ev/pf Sitting Exercise Name resisted ankle inv/ev/pf Side left Resistance level , lvl 3 Equipment Used TB Reps/Minutes 10 reps x 2 Comments long-sitting; cues to avoid hip rotation marble peanut picker Sitting Exercise Name towel scrunch then marble peanut picker Side left Reps/Minutes 5 min Comments focus on great toe flexion Standing Exercises heel raise Standing Exercise Name heel raise Side bilateral Equipment Used 6 step Reps/Minutes 10 reps Comments 1 set bilateral, 1 set unilateral R&L soleus stretch Standing Exercise Name soleus stretch Side left Reps/Minutes 30 SH x 4 Comments cued >weightbearing on left foot, heel on floor gastroc stretch Standing Exercise Name gastroc stretch Side left Reps/Minutes 30 SH x 4 Comments cued split stance and hips extended PT-OP-T Assessment and Plan Start: 02/02/21 14:17 Freq: Status: Active Protocol: Document 02/12/21 14:38 MA (Rec: 02/12/21 15:13 MA [id number]) Physical Therapy Assessment Goals Three Impairment strength/stability Short Term Goal (STG) Pt will improve left ankle strength to 5/5 all planes STG Duration 4 weeks - 03/02/21 Laboratory Veterinarian Goal (LTG) Pt will perform single leg stance 30 seconds on left leg to demonstrate improved ankle stability. Two Impairment ROM Short Term Goal (STG) Pt will increase left ankle dorsiflexion to five degrees or greater with knee flexed STG Duration 4 weeks - 03/02/21 [facility] Goal (LTG) Pt will descend stairs without heel lift and without pain to demonstrate functional ROM. LTG Duration 2 months 04/04/21 One Impairment gait Short Term Goal (STG) Pt will walk 30 minutes on paved surface without increase in baseline pain STG Duration 4 weeks - 03/02/21 Laboratory Veterinarian Goal (LTG) Pt will walk 60 minutes on uneven surface with no left ankle pain LTG Duration 2 months - 04/04/21 Assessment Summary Assessment Pt did well with all HEP exercises. He needed minor cues for great toe flexion during marble peanut picker exercise . Worked on SL calf raises at end of session. Pt fatigued quickly on left side from floor. Switched to shuttle recovery with 50# weight and pt was able to complete 2 sets of ten without any pain and only minor fatigue on second set. Pt's overall pain has improved and he is able to walk ~5 miles without increased pain on both even and uneven surfaces Physical Therapy Plan Frequency and Duration Frequency of Treatment 1-2x/week Duration of Treatment 2 months Plan of Care Start Date 02/02/21 Plan of Care End Date 04/04/21 Therapeutic Interventions Therapeutic Interventions Balance Training,Gait Training ,Home Exercise Program,Joint Mobilizations,Manual Therapy, Neuromuscular Re-education, Orthotic/Prosthetic Management ,Patient/Caregiver Education, Self-Care/Home Management,Soft Tissue Mobilization,Taping, Therapeutic Activities, Therapeutic Exercises Modalities Cold Pack/Ice Massage Next Visit Focus/Plan Next Note Type Treatment Note Next Visit Plan Continue gastroc and soleus stretches watching form; intrinsic foot muscle strengthening focused on supporting medial longitudinal arch; ankle stability and continue STM/joint mobs for great toe flexion and ankle mobility
--- NOTE | 2021-02-16 14:56 | PT-OP ANOTE ---
Patient did not show up for his 14:30 appointment.
--- NOTE | 2021-02-19 11:53 | PT.OTN ---
Current Diagnoses Posterior tibial tendinitis, right leg (02/19/21) Posterior tibial tendinitis, left leg (02/19/21) Difficulty in walking, not elsewhere classified (02/19/21) Abnormal posture (02/19/21) Physical Therapy Treatment Note PT-OP-A Visit Information Start: 02/02/21 14:17 Freq: Status: Active Protocol: Document 02/19/21 11:13 MA (Rec: 02/19/21 11:53 MA [id number]) Out-Patient Physical Therapy Visit Information Visit Information Visit Type Treatment Note Visit Start Time 11:10 Visit Stop Time 11:50 Total Visit Minutes 40 Visit Number 4 Number of MEDICARE CONTACT SPECIALIST Visits 2 PT-OP-B Current Condition Start: 02/02/21 14:17 Freq: Status: Active Protocol: Document 02/02/21 16:45 AW (Rec: 02/02/21 16:55 AW [id number]) Current Condition History of Current Condition Onset Date a couple of years Current Complaints left medial ankle pain History of Current Condition Pt reports long history of problems with his left foot and ankle. He had bunionectomy in 1992 and was then diagnosed with plantar fasciitis and arch problems. Podiatry prescribed orthotics which pt has continued to use since that time. He states he typically wears highly supportive shoes or hiking boots. Pt also reports spiral fibula fracture ~10 years ago and R ankle avulsion fracture ~7 years ago. He gets 4-5/10 medial ankle pain if he goes for walks without doing his stretches. Pain is sharp but will go away if he gets off his feet for ~ 10 minutes and then he is able to carry on. He states the pain is not predictable. It is usually not immediate and does not bother him until he has walked at least 10-15 minutes. Pt denies history of falls. Incidentally, he complains of bilateral knee pain - right worse than left. Prior Treatments and Tests PT following bunionectomy in mid- with good outcome Future Testing and Treatments Planned None identified. Pt is being followed by podiatry. Pt and group captain share the goal of pt being satisfactorily supported by Di vuong. Treatment Goals Patient/Caregiver Goals Pt would like to reduce pain, learn and refine exercises to prevent and alleviate pain, and ultimately to be able to walk 10 miles on uneven terrain without pain. 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 Current Functional Impairments (Reported) Functional Limitations- Mobility/Gait Pain with walking 10-15 minutes Personal Factors Other Personal Factors That May Effect + positive association with Therapy/Recovery movement + positive prior experience with PT - history of ankle fracture and repeated sprains PT-OP-C Subjective Start: 02/02/21 14:17 Freq: Status: Active Protocol: Document 02/19/21 11:13 MA (Rec: 02/19/21 11:53 MA [id number]) OP-PT Subjective Patient Comments Patient Comments Pt had the wrong time for his last appt and apologizes for missing it. His L ankle is feeling stronger but he feels he sometimes still compensates out of habit more than pain/ discomfort PT-OP-F Manual Assessment Start: 02/02/21 14:17 Freq: Status: Active Protocol: Document 02/02/21 16:45 AW (Rec: 02/02/21 17:25 AW [email or web address]) Manual Assessments Soft Tissue Assessment Soft Tissue Mobility Assessment Edema along path of posterior tibialis tendon. No point tenderness at navicular tubercle, calcaneus, proximal posterior tib. Joint Mobility Assessment Joint Mobility Assessment Reduced talar glides bilaterally (left more affected than right) PT-OP-G Mobility & Gait Start: 02/02/21 14:17 Freq: Status: Active Protocol: Document 02/02/21 16:45 AW (Rec: 02/02/21 17:25 AW [email or web address]) OP Gait Assessment Gait Gait Assistance Required: Independent Distance (Feet) 100 Assistive Devices Assistive Device None Gait Deviations General Gait Pattern Antalgic Factors Limiting Gait Function Factors Limiting Gait Function Limited Range of Motion,Pain Comments Gait Comments Slightly decreased LLE stance time. Mild pronation (left > right). PT-OP-K Range of Motion Start: 02/02/21 14:17 Freq: Status: Active Protocol: Document 02/02/21 16:45 AW (Rec: 02/02/21 17:25 AW [email or web address]) Ankle and Foot Goniometric Range of Motion Ankle and Foot Left Active Ankle/Foot ROM WFL No Testing Position Supine Dorsiflexion with Knee Flexed 2 Dorsiflexion with Knee Extended 0 Inversion 10 Eversion 20 Comments DF PROM limited Right Active Ankle/Foot ROM WFL No Testing Position Supine Dorsiflexion with Knee Flexed 5 Dorsiflexion with Knee Extended 2 Inversion 20 Eversion 20 Comments DF PROM limited Toe Range of Motion Toe Great Toe Comments Left great toe extension restricted. PT-OP-M Strength Start: 02/02/21 14:17 Freq: Status: Active Protocol: Document 02/02/21 16:45 AW (Rec: 02/02/21 17:25 AW [email or web address]) Ankle/Foot Strength Ankle and Foot Manual Muscle Testing Left Dorsiflexion (L4) 5 Normal Plantarflexion (S1) 4 Good Inversion 4+ Good+ Eversion (S1) 4+ Good+ Right Dorsiflexion (L4) 5 Normal Plantarflexion (S1) 4+ Good+ Inversion 5 Normal Eversion (S1) 5 Normal PT-OP-Q Treatments Start: 02/02/21 14:17 Freq: Status: Active Protocol: Document 02/19/21 11:13 MA (Rec: 02/19/21 11:53 MA [id number]) Gym Equipment Shuttle Recovery Unilateral Calf Raise Resistance 50#, 75# Shuttle Recovery Platform Stable Reps/Time 1x10 50#, 2x10 75# Therapeutic Exercises Sitting Exercises resisted great toe flexion Sitting Exercise Name resisted great toe flexion Side left Resistance Level 3 Equipment Used TB Reps/Minutes 10 reps x 2 Comments long-sitting resisted ankle inv/ev/pf Sitting Exercise Name resisted ankle inv/ev/pf/df Side left Resistance lvl 3 Equipment Used TB Reps/Minutes 10 reps x 2 Comments long-sitting; cues to avoid hip rotation marble hop picker Sitting Exercise Name towel scrunch then marble hop picker Side left Reps/Minutes 5 min Comments focus on great toe flexion Standing Exercises soleus stretch Standing Exercise Name soleus stretch Side left Reps/Minutes 30 SH x 4 Comments cued >weightbearing on left foot, heel on floor gastroc stretch Standing Exercise Name gastroc stretch Side bilateral Reps/Minutes 2x 60 sec Comments on LENY today & stairs Manual Therapy Treatment Joint Mobilizations great toe flexion Joint great toe flexion Grade II Body Position Hooklying Reps/Duration 4 min Neuro Re-Education Treatment Balance Activities SLS Comments able to complete 22 seconds on LLE with mild sway PT-OP-T Assessment and Plan Start: 02/02/21 14:17 Freq: Status: Active Protocol: Document 02/19/21 11:13 MA (Rec: 02/19/21 11:53 MA [id number]) Physical Therapy Assessment Goals Three Impairment strength/stability Short Term Goal (STG) Pt will improve left ankle strength to 5/5 all planes STG Duration 4 weeks - 03/02/21 Senior Care Goal (LTG) Pt will perform single leg stance 30 seconds on left leg to demonstrate improved ankle stability. Two Impairment ROM Short Term Goal (STG) Pt will increase left ankle dorsiflexion to five degrees or greater with knee flexed STG Duration 4 weeks - 03/02/21 Senior Care Goal (LTG) Pt will descend stairs without heel lift and without pain to demonstrate functional ROM. LTG Duration 2 months 04/04/21 One Impairment gait Short Term Goal (STG) Pt will walk 30 minutes on paved surface without increase in baseline pain STG Duration 4 weeks - 03/02/21 Senior Care Goal (LTG) Pt will walk 60 minutes on uneven surface with no left ankle pain LTG Duration 2 months - 04/04/21 Assessment Summary Assessment Added DF with lvl 3 band exercise to therapy today. Pt needed cues to avoid ER of LLE during eversion. Pt is up to 2x20 of each of his exercises at home using the level 3 theraband. Pt was able to get up to 75# on the shuttle recovery for unilateral calf raises with minor fatigue on the L. Will begin balance work on LLE next session. Pt was able to balance for 22 sec with a mild sway today. Physical Therapy Plan Frequency and Duration Frequency of Treatment 1-2x/week Duration of Treatment 2 months Plan of Care Start Date 02/02/21 Plan of Care End Date 04/04/21 Therapeutic Interventions Therapeutic Interventions Balance Training,Gait Training ,Home Exercise Program,Joint Mobilizations,Manual Therapy, Neuromuscular Re-education, Orthotic/Prosthetic Management ,Patient/Caregiver Education, Self-Care/Home Management,Soft Tissue Mobilization,Taping, Therapeutic Activities, Therapeutic Exercises Modalities Cold Pack/Ice Massage Next Visit Focus/Plan Next Note Type Treatment Note Next Visit Plan Begin SLS balance work on LLE Continue gastroc and soleus stretches watching form; intrinsic foot muscle strengthening focused on supporting medial longitudinal arch; ankle stability and continue STM/joint mobs for great toe flexion and ankle mobility
--- NOTE | 2021-02-23 13:00 | PT.OTN ---
Current Diagnoses Posterior tibial tendinitis, right leg (02/23/21) Posterior tibial tendinitis, left leg (02/23/21) Difficulty in walking, not elsewhere classified (02/23/21) Abnormal posture (02/23/21) Physical Therapy Treatment Note PT-OP-A Visit Information Start: 02/02/21 14:17 Freq: Status: Active Protocol: Document 02/23/21 12:58 AW (Rec: 02/23/21 13:47 AW [id number]) Out-Patient Physical Therapy Visit Information Visit Information Visit Type Treatment Note Visit Start Time 13:00 Visit Stop Time 13:45 Total Visit Minutes 45 Visit Number 5 Number of PLODDER OPERATOR Visits 0 Evaluation Information Evaluation Date 02/02/21 PT-OP-B Current Condition Start: 02/02/21 14:17 Freq: Status: Active Protocol: Document 02/02/21 16:45 AW (Rec: 02/02/21 16:55 AW [id number]) Current Condition History of Current Condition Onset Date a couple of years Current Complaints left medial ankle pain History of Current Condition Pt reports long history of problems with his left foot and ankle. He had bunionectomy in 1992 and was then diagnosed with plantar fasciitis and arch problems. Podiatry prescribed orthotics which pt has continued to use since that time. He states he typically wears highly supportive shoes or hiking boots. Pt also reports spiral fibula fracture ~10 years ago and R ankle avulsion fracture ~7 years ago. He gets 4-5/10 medial ankle pain if he goes for walks without doing his stretches. Pain is sharp but will go away if he gets off his feet for ~ 10 minutes and then he is able to carry on. He states the pain is not predictable. It is usually not immediate and does not bother him until he has walked at least 10-15 minutes. Pt denies history of falls. Incidentally, he complains of bilateral knee pain - right worse than left. Prior Treatments and Tests PT following bunionectomy in mid- with good outcome Future Testing and Treatments Planned None identified. Pt is being followed by podiatry. Pt and muck boss share the goal of pt being satisfactorily supported by Di vuong. Treatment Goals Patient/Caregiver Goals Pt would like to reduce pain, learn and refine exercises to prevent and alleviate pain, and ultimately to be able to walk 10 miles on uneven terrain without pain. 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 Current Functional Impairments (Reported) Functional Limitations- Mobility/Gait Pain with walking 10-15 minutes Personal Factors Other Personal Factors That May Effect + positive association with Therapy/Recovery movement + positive prior experience with PT - history of ankle fracture and repeated sprains PT-OP-C Subjective Start: 02/02/21 14:17 Freq: Status: Active Protocol: Document 02/23/21 12:58 AW (Rec: 02/23/21 13:47 AW [id number]) OP-PT Subjective Patient Comments Patient Comments Pt reports some soreness distal to the navicular on the side of his foot but thinks it's related to the toe flexion stretches PT-OP-F Manual Assessment Start: 02/02/21 14:17 Freq: Status: Active Protocol: Document 02/02/21 16:45 AW (Rec: 02/02/21 17:25 AW [email or web address]) Manual Assessments Soft Tissue Assessment Soft Tissue Mobility Assessment Edema along path of posterior tibialis tendon. No point tenderness at navicular tubercle, calcaneus, proximal posterior tib. Joint Mobility Assessment Joint Mobility Assessment Reduced talar glides bilaterally (left more affected than right) PT-OP-G Mobility & Gait Start: 02/02/21 14:17 Freq: Status: Active Protocol: Document 02/02/21 16:45 AW (Rec: 02/02/21 17:25 AW [email or web address]) OP Gait Assessment Gait Gait Assistance Required: Independent Distance (Feet) 100 Assistive Devices Assistive Device None Gait Deviations General Gait Pattern Antalgic Factors Limiting Gait Function Factors Limiting Gait Function Limited Range of Motion,Pain Comments Gait Comments Slightly decreased LLE stance time. Mild pronation (left > right). PT-OP-K Range of Motion Start: 02/02/21 14:17 Freq: Status: Active Protocol: Document 02/02/21 16:45 AW (Rec: 02/02/21 17:25 AW [email or web address]) Ankle and Foot Goniometric Range of Motion Ankle and Foot Left Active Ankle/Foot ROM WFL No Testing Position Supine Dorsiflexion with Knee Flexed 2 Dorsiflexion with Knee Extended 0 Inversion 10 Eversion 20 Comments DF PROM limited Right Active Ankle/Foot ROM WFL No Testing Position Supine Dorsiflexion with Knee Flexed 5 Dorsiflexion with Knee Extended 2 Inversion 20 Eversion 20 Comments DF PROM limited Toe Range of Motion Toe Great Toe Comments Left great toe extension restricted. PT-OP-M Strength Start: 02/02/21 14:17 Freq: Status: Active Protocol: Document 02/02/21 16:45 AW (Rec: 02/02/21 17:25 AW [email or web address]) Ankle/Foot Strength Ankle and Foot Manual Muscle Testing Left Dorsiflexion (L4) 5 Normal Plantarflexion (S1) 4 Good Inversion 4+ Good+ Eversion (S1) 4+ Good+ Right Dorsiflexion (L4) 5 Normal Plantarflexion (S1) 4+ Good+ Inversion 5 Normal Eversion (S1) 5 Normal PT-OP-Q Treatments Start: 02/02/21 14:17 Freq: Status: Active Protocol: Document 02/23/21 12:58 AW (Rec: 02/23/21 13:47 AW [id number]) Gym Equipment Shuttle Recovery Bilateral Heel Raises Resistance 75# Shuttle Recovery Platform Stable Reps/Time 20 x 2 Unilateral Calf Raise Resistance 75# Shuttle Recovery Platform Stable Reps/Time x10 Therapeutic Exercises Sitting Exercises resisted ankle inv/ev/pf Sitting Exercise Name resisted PF combined with inversion Side left Resistance manual Reps/Minutes 10 reps x 2 Comments long-sitting Standing Exercises hip hike Standing Exercise Name hip hike Side bilateral Equipment Used 4 step Reps/Minutes 15 x 2 Comments cued frontal plane movement gastroc stretch Standing Exercise Name gastroc stretch Side bilateral Equipment Used LENY Reps/Minutes 2x 60 sec Manual Therapy Treatment Joint Mobilizations great toe flexion Joint great toe flexion Grade III Body Position Sitting Reps/Duration 4 min posterior talar glide Joint posterior talar glide Grade III Body Position Sitting Reps/Duration 4 min Comments with lower leg swing Neuro Re-Education Treatment Balance Activities SLS Surface firm, foam Reps/Duration 10 min Comments BLE stance on firm and foam with EO and EC; WBOS and NBOS; SLS LLE positive trendelenberg PT-OP-T Assessment and Plan Start: 02/02/21 14:17 Freq: Status: Active Protocol: Document 02/23/21 12:58 AW (Rec: 02/23/21 17:15 AW [email or web address]) Physical Therapy Assessment Goals Three Impairment strength/stability Short Term Goal (STG) Pt will improve left ankle strength to 5/5 all planes STG Duration 4 weeks - 03/02/21 Intermediate Goal (LTG) Pt will perform single leg stance 30 seconds on left leg to demonstrate improved ankle stability. Two Impairment ROM Short Term Goal (STG) Pt will increase left ankle dorsiflexion to five degrees or greater with knee flexed STG Duration 4 weeks - 03/02/21 Manager [employer] Goal (LTG) Pt will descend stairs without heel lift and without pain to demonstrate functional ROM. LTG Duration 2 months 04/04/21 One Impairment gait Short Term Goal (STG) Pt will walk 30 minutes on paved surface without increase in baseline pain STG Duration 4 weeks - 03/02/21 Intermediate Goal (LTG) Pt will walk 60 minutes on uneven surface with no left ankle pain LTG Duration 2 months - 04/04/21 Progress Towards Goals Progress Towards Goals Progressing Toward Goals Progress Comments Decreased pain overall. Improved foot/ankle strength Assessment Summary Assessment Pt has positive trendelenberg sign bilaterally in single leg stance. Initiated glute med training for pelvic stability. Pt is progressing with foot and ankle stability but remains limited in great toe ROM. Physical Therapy Plan Frequency and Duration Frequency of Treatment 1-2x/week Duration of Treatment 2 months Plan of Care Start Date 02/02/21 Plan of Care End Date 04/04/21 Therapeutic Interventions Therapeutic Interventions Balance Training,Gait Training ,Home Exercise Program,Joint Mobilizations,Manual Therapy, Neuromuscular Re-education, Orthotic/Prosthetic Management ,Patient/Caregiver Education, Self-Care/Home Management,Soft Tissue Mobilization,Taping, Therapeutic Activities, Therapeutic Exercises Modalities Cold Pack/Ice Massage Next Visit Focus/Plan Next Note Type Treatment Note Next Visit Plan Begin SLS balance work on LLE Continue gastroc and soleus stretches watching form; intrinsic foot muscle strengthening focused on supporting medial longitudinal arch; ankle stability and continue STM/joint mobs for great toe flexion and ankle mobility
--- NOTE | 2021-02-26 12:49 | PT.OTN ---
Current Diagnoses Posterior tibial tendinitis, right leg (02/26/21) Posterior tibial tendinitis, left leg (02/26/21) Difficulty in walking, not elsewhere classified (02/26/21) Abnormal posture (02/26/21) Physical Therapy Treatment Note PT-OP-A Visit Information Start: 02/02/21 14:17 Freq: Status: Active Protocol: Document 02/26/21 12:03 MA (Rec: 02/26/21 12:48 MA [id number]) Out-Patient Physical Therapy Visit Information Visit Information Visit Type Treatment Note Visit Start Time 12:03 Visit Stop Time 12:45 Total Visit Minutes 42 Visit Number 6 Number of RICE FIELD WORKER Visits 1 PT-OP-B Current Condition Start: 02/02/21 14:17 Freq: Status: Active Protocol: Document 02/02/21 16:45 AW (Rec: 02/02/21 16:55 AW [id number]) Current Condition History of Current Condition Onset Date a couple of years Current Complaints left medial ankle pain History of Current Condition Pt reports long history of problems with his left foot and ankle. He had bunionectomy in 1992 and was then diagnosed with plantar fasciitis and arch problems. Podiatry prescribed orthotics which pt has continued to use since that time. He states he typically wears highly supportive shoes or hiking boots. Pt also reports spiral fibula fracture ~10 years ago and R ankle avulsion fracture ~7 years ago. He gets 4-5/10 medial ankle pain if he goes for walks without doing his stretches. Pain is sharp but will go away if he gets off his feet for ~ 10 minutes and then he is able to carry on. He states the pain is not predictable. It is usually not immediate and does not bother him until he has walked at least 10-15 minutes. Pt denies history of falls. Incidentally, he complains of bilateral knee pain - right worse than left. Prior Treatments and Tests PT following bunionectomy in mid- with good outcome Future Testing and Treatments Planned None identified. Pt is being followed by podiatry. 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 Treatment Goals Patient/Caregiver Goals Pt would like to reduce pain, learn and refine exercises to prevent and alleviate pain, and ultimately to be able to walk 10 miles on uneven terrain without pain. 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 Current Functional Impairments (Reported) Functional Limitations- Mobility/Gait Pain with walking 10-15 minutes Personal Factors Other Personal Factors That May Effect + positive association with Therapy/Recovery movement + positive prior experience with PT - history of ankle fracture and repeated sprains PT-OP-C Subjective Start: 02/02/21 14:17 Freq: Status: Active Protocol: Document 02/26/21 12:03 MA (Rec: 02/26/21 12:48 MA [id number]) OP-PT Subjective Patient Comments Patient Comments Pt states, I went for an hour and a half walk/hike this morning and the base of my first toe is stiff PT-OP-F Manual Assessment Start: 02/02/21 14:17 Freq: Status: Active Protocol: Document 02/02/21 16:45 AW (Rec: 02/02/21 17:25 AW [email or web address]) Manual Assessments Soft Tissue Assessment Soft Tissue Mobility Assessment Edema along path of posterior tibialis tendon. No point tenderness at navicular tubercle, calcaneus, proximal posterior tib. Joint Mobility Assessment Joint Mobility Assessment Reduced talar glides bilaterally (left more affected than right) PT-OP-G Mobility & Gait Start: 02/02/21 14:17 Freq: Status: Active Protocol: Document 02/02/21 16:45 AW (Rec: 02/02/21 17:25 AW [email or web address]) OP Gait Assessment Gait Gait Assistance Required: Independent Distance (Feet) 100 Assistive Devices Assistive Device None Gait Deviations General Gait Pattern Antalgic Factors Limiting Gait Function Factors Limiting Gait Function Limited Range of Motion,Pain Comments Gait Comments Slightly decreased LLE stance time. Mild pronation (left > right). PT-OP-K Range of Motion Start: 02/02/21 14:17 Freq: Status: Active Protocol: Document 02/02/21 16:45 AW (Rec: 02/02/21 17:25 AW [email or web address]) Ankle and Foot Goniometric Range of Motion Ankle and Foot Left Active Ankle/Foot ROM WFL No Testing Position Supine Dorsiflexion with Knee Flexed 2 Dorsiflexion with Knee Extended 0 Inversion 10 Eversion 20 Comments DF PROM limited Right Active Ankle/Foot ROM WFL No Testing Position Supine Dorsiflexion with Knee Flexed 5 Dorsiflexion with Knee Extended 2 Inversion 20 Eversion 20 Comments DF PROM limited Toe Range of Motion Toe Great Toe Comments Left great toe extension restricted. PT-OP-M Strength Start: 02/02/21 14:17 Freq: Status: Active Protocol: Document 02/02/21 16:45 AW (Rec: 02/02/21 17:25 AW [email or web address]) Ankle/Foot Strength Ankle and Foot Manual Muscle Testing Left Dorsiflexion (L4) 5 Normal Plantarflexion (S1) 4 Good Inversion 4+ Good+ Eversion (S1) 4+ Good+ Right Dorsiflexion (L4) 5 Normal Plantarflexion (S1) 4+ Good+ Inversion 5 Normal Eversion (S1) 5 Normal PT-OP-Q Treatments Start: 02/02/21 14:17 Freq: Status: Active Protocol: Document 02/26/21 12:03 MA (Rec: 02/26/21 12:48 MA [id number]) Therapeutic Exercises Sidelying Exercises Hip ABD Side bilateral Reps/Minutes 2x10 Clamshell Side bilateral Reps/Minutes 2x10 Sitting Exercises resisted ankle inv/ev/pf Sitting Exercise Name resisted PF combined with inversion Side left Resistance manual Reps/Minutes 10 reps x 2 Comments long-sitting, added DF Standing Exercises Step Ups Standing Exercise Name lateral step ups Side bilateral Equipment Used 6 step Reps/Minutes 2x10 hip hike Standing Exercise Name hip hike Side bilateral Equipment Used 4 step Reps/Minutes 15 x 2 Comments cued frontal plane movement gastroc stretch Standing Exercise Name gastroc stretch Side bilateral Equipment Used LENY Reps/Minutes 2x 60 sec Gait Training Gait Activity Uneven terrain Distance/Duration 5 min Comments walking outside over curbs, grass, and stairs Neuro Re-Education Treatment Balance Activities SLS Surface Firm, blue foam Reps/Duration 10 min Comments 1. SLS blue firm surface, blue foam 2. BLE blue foam - EO/EC 3. tandem, solid surface & blue foam EO/EC PT-OP-T Assessment and Plan Start: 02/02/21 14:17 Freq: Status: Active Protocol: Document 02/26/21 12:03 MA (Rec: 02/26/21 12:48 MA [id number]) Physical Therapy Assessment Goals Three Impairment strength/stability Short Term Goal (STG) Pt will improve left ankle strength to 5/5 all planes STG Duration 4 weeks - 03/02/21 Nursing Home Goal (LTG) Pt will perform single leg stance 30 seconds on left leg to demonstrate improved ankle stability. Two Impairment ROM Short Term Goal (STG) Pt will increase left ankle dorsiflexion to five degrees or greater with knee flexed STG Duration 4 weeks - 03/02/21 Wad Blanking Press Adjuster Goal (LTG) Pt will descend stairs without heel lift and without pain to demonstrate functional ROM. LTG Duration 2 months 04/04/21 One Impairment gait Short Term Goal (STG) Pt will walk 30 minutes on paved surface without increase in baseline pain STG Duration 4 weeks - 03/02/21 Wad Blanking Press Adjuster Goal (LTG) Pt will walk 60 minutes on uneven surface with no left ankle pain LTG Duration 2 months - 04/04/21 Assessment Summary Assessment Pt was able to walk on grass without assistance and maintain good balance. He needed CGA during stairs for his L knee giving out. He was able to balance SLS on the RLE for 20 sec and L 10 sec. Tandem stance and SLS are both challenging for pt. He requires cues during SLS to not lean laterally or drop hip . Performed hip hikes and lateral step ups infront of mirror today so pt could watch his form and self correct. Physical Therapy Plan Frequency and Duration Frequency of Treatment 1-2x/week Duration of Treatment 2 months Plan of Care Start Date 02/02/21 Plan of Care End Date 04/04/21 Therapeutic Interventions Therapeutic Interventions Balance Training,Gait Training ,Home Exercise Program,Joint Mobilizations,Manual Therapy, Neuromuscular Re-education, Orthotic/Prosthetic Management ,Patient/Caregiver Education, Self-Care/Home Management,Soft Tissue Mobilization,Taping, Therapeutic Activities, Therapeutic Exercises Modalities Cold Pack/Ice Massage Next Visit Focus/Plan Next Note Type Treatment Note Next Visit Plan Continue tandem balance work and SLS, gastroc and soleus stretches watching form; intrinsic foot muscle strengthening focused on supporting medial longitudinal arch; ankle stability and continue STM/joint mobs for great toe flexion and ankle mobility
--- NOTE | 2021-03-05 15:20 | PT.OTN ---
Current Diagnoses Posterior tibial tendinitis, right leg (03/05/21) Posterior tibial tendinitis, left leg (03/05/21) Difficulty in walking, not elsewhere classified (03/05/21) Abnormal posture (03/05/21) Physical Therapy Treatment Note PT-OP-A Visit Information Start: 02/02/21 14:17 Freq: Status: Active Protocol: Document 03/05/21 14:36 MA (Rec: 03/05/21 15:17 MA [id number]) Out-Patient Physical Therapy Visit Information Visit Information Visit Type Treatment Note Visit Start Time 14:30 Visit Stop Time 15:10 Total Visit Minutes 40 Visit Number 8 Number of SLURRY TANK OPERATOR Visits 3 PT-OP-B Current Condition Start: 02/02/21 14:17 Freq: Status: Active Protocol: Document 02/02/21 16:45 AW (Rec: 02/02/21 16:55 AW [id number]) Current Condition History of Current Condition Onset Date a couple of years Current Complaints left medial ankle pain History of Current Condition Pt reports long history of problems with his left foot and ankle. He had bunionectomy in 1992 and was then diagnosed with plantar fasciitis and arch problems. Podiatry prescribed orthotics which pt has continued to use since that time. He states he typically wears highly supportive shoes or hiking boots. Pt also reports spiral fibula fracture ~10 years ago and R ankle avulsion fracture ~7 years ago. He gets 4-5/10 medial ankle pain if he goes for walks without doing his stretches. Pain is sharp but will go away if he gets off his feet for ~ 10 minutes and then he is able to carry on. He states the pain is not predictable. It is usually not immediate and does not bother him until he has walked at least 10-15 minutes. Pt denies history of falls. Incidentally, he complains of bilateral knee pain - right worse than left. Prior Treatments and Tests PT following bunionectomy in mid- with good outcome Future Testing and Treatments Planned None identified. Pt is being followed by podiatry. Pt and supervisor riprap placing share the goal of pt being satisfactorily supported by Di vuong. Treatment Goals Patient/Caregiver Goals Pt would like to reduce pain, learn and refine exercises to prevent and alleviate pain, and ultimately to be able to walk 10 miles on uneven terrain without pain. 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 Current Functional Impairments (Reported) Functional Limitations- Mobility/Gait Pain with walking 10-15 minutes Personal Factors Other Personal Factors That May Effect + positive association with Therapy/Recovery movement + positive prior experience with PT - history of ankle fracture and repeated sprains PT-OP-C Subjective Start: 02/02/21 14:17 Freq: Status: Active Protocol: Document 03/05/21 14:36 MA (Rec: 03/05/21 15:17 MA [id number]) OP-PT Subjective Patient Comments Patient Comments My quads are sore from pulling weeds. PT-OP-F Manual Assessment Start: 02/02/21 14:17 Freq: Status: Active Protocol: Document 02/02/21 16:45 AW (Rec: 02/02/21 17:25 AW [email or web address]) Manual Assessments Soft Tissue Assessment Soft Tissue Mobility Assessment Edema along path of posterior tibialis tendon. No point tenderness at navicular tubercle, calcaneus, proximal posterior tib. Joint Mobility Assessment Joint Mobility Assessment Reduced talar glides bilaterally (left more affected than right) PT-OP-G Mobility & Gait Start: 02/02/21 14:17 Freq: Status: Active Protocol: Document 02/02/21 16:45 AW (Rec: 02/02/21 17:25 AW [email or web address]) OP Gait Assessment Gait Gait Assistance Required: Independent Distance (Feet) 100 Assistive Devices Assistive Device None Gait Deviations General Gait Pattern Antalgic Factors Limiting Gait Function Factors Limiting Gait Function Limited Range of Motion,Pain Comments Gait Comments Slightly decreased LLE stance time. Mild pronation (left > right). PT-OP-K Range of Motion Start: 02/02/21 14:17 Freq: Status: Active Protocol: Document 02/02/21 16:45 AW (Rec: 02/02/21 17:25 AW [email or web address]) Ankle and Foot Goniometric Range of Motion Ankle and Foot Left Active Ankle/Foot ROM WFL No Testing Position Supine Dorsiflexion with Knee Flexed 2 Dorsiflexion with Knee Extended 0 Inversion 10 Eversion 20 Comments DF PROM limited Right Active Ankle/Foot ROM WFL No Testing Position Supine Dorsiflexion with Knee Flexed 5 Dorsiflexion with Knee Extended 2 Inversion 20 Eversion 20 Comments DF PROM limited Toe Range of Motion Toe Great Toe Comments Left great toe extension restricted. PT-OP-M Strength Start: 02/02/21 14:17 Freq: Status: Active Protocol: Document 02/02/21 16:45 AW (Rec: 02/02/21 17:25 AW [email or web address]) Ankle/Foot Strength Ankle and Foot Manual Muscle Testing Left Dorsiflexion (L4) 5 Normal Plantarflexion (S1) 4 Good Inversion 4+ Good+ Eversion (S1) 4+ Good+ Right Dorsiflexion (L4) 5 Normal Plantarflexion (S1) 4+ Good+ Inversion 5 Normal Eversion (S1) 5 Normal PT-OP-Q Treatments Start: 02/02/21 14:17 Freq: Status: Active Protocol: Document 03/05/21 14:36 MA (Rec: 03/05/21 15:17 MA [id number]) Cardio Equipment Recumbent Stepper (Sci-Fit) Duration (Minutes) 6 Resistance 2.5 Seat Position 8 Other heels at base of foot rest for increased calf stretch Therapeutic Exercises Sidelying Exercises Hip ABD Side bilateral Reps/Minutes x15 Standing Exercises Tennis Ball Standing Exercise Name rolling arch of foot Side left Equipment Used tennis ball Reps/Minutes 60 sec Comments pt requested stretch for bottom of foot Hip ABD Side bilateral Equipment Used lvl 1 TB Reps/Minutes 10x2 gastroc stretch Standing Exercise Name gastroc stretch Side bilateral Equipment Used stairs Reps/Minutes 60 sec Neuro Re-Education Treatment Balance Activities SLS Surface Firm Reps/Duration 30 sec trials Comments RLE able to complete 30 seconds, LLE 20-25 seconds with some instability PT-OP-T Assessment and Plan Start: 02/02/21 14:17 Freq: Status: Active Protocol: Document 03/05/21 14:36 MA (Rec: 03/05/21 15:17 MA [id number]) Physical Therapy Assessment Goals Three Impairment strength/stability Short Term Goal (STG) Pt will improve left ankle strength to 5/5 all planes STG Duration 4 weeks - 03/02/21 Network Security Architect Goal (LTG) Pt will perform single leg stance 30 seconds on left leg to demonstrate improved ankle stability. 03/05/21 - LLE 20-25 sec RLE 30 sec Two Impairment ROM Short Term Goal (STG) Pt will increase left ankle dorsiflexion to five degrees or greater with knee flexed 03/05/21- GOAL MET 9 degrees STG Duration 4 weeks - 03/02/21 Network Security Architect Goal (LTG) Pt will descend stairs without heel lift and without pain to demonstrate functional ROM. 03/05/21 - achieved LTG Duration Achieved One Impairment gait Short Term Goal (STG) Pt will walk 30 minutes on paved surface without increase in baseline pain 03/05/21 - pt walked [address] wihtout increase in pain STG Duration Achieved Network Security Architect Goal (LTG) Pt will walk 60 minutes on uneven surface with no left ankle pain 03/05/21 - pt can walk 2x [address] and [employer] [address] without any reported pain LTG Duration Achieved Assessment Summary Assessment Pt achieved several goals and is able to walk without pain on both even and uneven surfaces around town without any L foot pain. His DF has improved to 9 degrees with knee flexed on L side. Pt requested a stretch for L arch of foot occassionally feeling tight. Practiced standing stretch using tennis ball on arch with pt agreeable to buying a small hard ball for home. Nigel had some difficulty with balance today stating I don;t know why, but my balance started getting a little off yesterday. Maybe it 's because I am tired from gardening. Physical Therapy Plan Frequency and Duration Frequency of Treatment 1-2x/week Duration of Treatment 2 months Plan of Care Start Date 02/02/21 Plan of Care End Date 04/04/21 Therapeutic Interventions Therapeutic Interventions Balance Training,Gait Training ,Home Exercise Program,Joint Mobilizations,Manual Therapy, Neuromuscular Re-education, Orthotic/Prosthetic Management ,Patient/Caregiver Education, Self-Care/Home Management,Soft Tissue Mobilization,Taping, Therapeutic Activities, Therapeutic Exercises Modalities Cold Pack/Ice Massage Next Visit Focus/Plan Next Note Type Treatment Note Next Visit Plan Assess goals for possible d/c next session. Continue tandem balance work and SLS, gastroc and soleus stretches watching form; intrinsic foot muscle strengthening focused on supporting medial longitudinal arch; ankle stability and continue STM/joint mobs for great toe flexion and ankle mobility
--- NOTE | 2021-03-09 16:31 | PT.OTN ---
Current Diagnoses Posterior tibial tendinitis, right leg (03/09/21) Posterior tibial tendinitis, left leg (03/09/21) Difficulty in walking, not elsewhere classified (03/09/21) Abnormal posture (03/09/21) Physical Therapy Treatment Note PT-OP-A Visit Information Start: 02/02/21 14:17 Freq: Status: Active Protocol: Document 03/09/21 13:38 AW (Rec: 03/09/21 13:42 AW [id number]) Out-Patient Physical Therapy Visit Information Visit Information Visit Type Treatment Note Visit Start Time 13:00 Visit Stop Time 13:38 Total Visit Minutes 38 Visit Number 9 Number of NIGHT PATROL INSPECTOR Visits 0 PT-OP-B Current Condition Start: 02/02/21 14:17 Freq: Status: Active Protocol: Document 02/02/21 16:45 AW (Rec: 02/02/21 16:55 AW [id number]) Current Condition History of Current Condition Onset Date a couple of years Current Complaints left medial ankle pain History of Current Condition Pt reports long history of problems with his left foot and ankle. He had bunionectomy in 1992 and was then diagnosed with plantar fasciitis and arch problems. Podiatry prescribed orthotics which pt has continued to use since that time. He states he typically wears highly supportive shoes or hiking boots. Pt also reports spiral fibula fracture ~10 years ago and R ankle avulsion fracture ~7 years ago. He gets 4-5/10 medial ankle pain if he goes for walks without doing his stretches. Pain is sharp but will go away if he gets off his feet for ~ 10 minutes and then he is able to carry on. He states the pain is not predictable. It is usually not immediate and does not bother him until he has walked at least 10-15 minutes. Pt denies history of falls. Incidentally, he complains of bilateral knee pain - right worse than left. Prior Treatments and Tests PT following bunionectomy in mid- with good outcome Future Testing and Treatments Planned None identified. Pt is being followed by podiatry. Pt and lasting room machine operator share the goal of pt being satisfactorily supported by Di vuong. Treatment Goals Patient/Caregiver Goals Pt would like to reduce pain, learn and refine exercises to prevent and alleviate pain, and ultimately to be able to walk 10 miles on uneven terrain without pain. 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 Current Functional Impairments (Reported) Functional Limitations- Mobility/Gait Pain with walking 10-15 minutes Personal Factors Other Personal Factors That May Effect + positive association with Therapy/Recovery movement + positive prior experience with PT - history of ankle fracture and repeated sprains PT-OP-C Subjective Start: 02/02/21 14:17 Freq: Status: Active Protocol: Document 03/09/21 13:38 AW (Rec: 03/09/21 13:42 AW [id number]) OP-PT Subjective Patient Comments Patient Comments I feel a lot more stable on steep slopes these days. More limiting factor is emphysema. PT-OP-F Manual Assessment Start: 02/02/21 14:17 Freq: Status: Active Protocol: Document 02/02/21 16:45 AW (Rec: 02/02/21 17:25 AW [email or web address]) Manual Assessments Soft Tissue Assessment Soft Tissue Mobility Assessment Edema along path of posterior tibialis tendon. No point tenderness at navicular tubercle, calcaneus, proximal posterior tib. Joint Mobility Assessment Joint Mobility Assessment Reduced talar glides bilaterally (left more affected than right) PT-OP-G Mobility & Gait Start: 02/02/21 14:17 Freq: Status: Active Protocol: Document 02/02/21 16:45 AW (Rec: 02/02/21 17:25 AW [email or web address]) OP Gait Assessment Gait Gait Assistance Required: Independent Distance (Feet) 100 Assistive Devices Assistive Device None Gait Deviations General Gait Pattern Antalgic Factors Limiting Gait Function Factors Limiting Gait Function Limited Range of Motion,Pain Comments Gait Comments Slightly decreased LLE stance time. Mild pronation (left > right). PT-OP-K Range of Motion Start: 02/02/21 14:17 Freq: Status: Active Protocol: Document 02/02/21 16:45 AW (Rec: 02/02/21 17:25 AW [email or web address]) Ankle and Foot Goniometric Range of Motion Ankle and Foot Left Active Ankle/Foot ROM WFL No Testing Position Supine Dorsiflexion with Knee Flexed 2 Dorsiflexion with Knee Extended 0 Inversion 10 Eversion 20 Comments DF PROM limited Right Active Ankle/Foot ROM WFL No Testing Position Supine Dorsiflexion with Knee Flexed 5 Dorsiflexion with Knee Extended 2 Inversion 20 Eversion 20 Comments DF PROM limited Toe Range of Motion Toe Great Toe Comments Left great toe extension restricted. PT-OP-M Strength Start: 02/02/21 14:17 Freq: Status: Active Protocol: Document 02/02/21 16:45 AW (Rec: 02/02/21 17:25 AW [email or web address]) Ankle/Foot Strength Ankle and Foot Manual Muscle Testing Left Dorsiflexion (L4) 5 Normal Plantarflexion (S1) 4 Good Inversion 4+ Good+ Eversion (S1) 4+ Good+ Right Dorsiflexion (L4) 5 Normal Plantarflexion (S1) 4+ Good+ Inversion 5 Normal Eversion (S1) 5 Normal PT-OP-Q Treatments Start: 02/02/21 14:17 Freq: Status: Active Protocol: Document 03/09/21 13:38 AW (Rec: 03/09/21 13:42 AW [id number]) Cardio Equipment Recumbent Stepper (Sci-Fit) Duration (Minutes) 6 Resistance 2.5 Seat Position 8 Other heels at base of foot rest for increased calf stretch Therapeutic Exercises Sitting Exercises resisted ankle inv/ev/pf Sitting Exercise Name resisted PF combined with inversion Side left Resistance level 3 Equipment Used TB Reps/Minutes x15 Comments long-sitting Standing Exercises Step Ups Standing Exercise Name lateral and fwd step ups Side bilateral Equipment Used 4 step, 8 step, BOSU Reps/Minutes 12 min Comments with alternating january hip hike Standing Exercise Name hip hike Side bilateral Equipment Used 4 step Reps/Minutes 15 x 2 Comments cued frontal plane movement heel raise Standing Exercise Name heel raise Side bilateral Equipment Used 6 step Reps/Minutes 20x Comments eccentric soleus stretch Standing Exercise Name soleus stretch Side left Equipment Used 6 step, 12 step Reps/Minutes 30 SH x 4 Comments cued >weightbearing on left foot, heel on floor gastroc stretch Standing Exercise Name gastroc stretch Side bilateral Equipment Used LENY Reps/Minutes 60 sec Neuro Re-Education Treatment Balance Activities rocker board Details rocker board Reps/Duration x 5 min Comments emphasis on core recruitment SLS Surface Firm, Foam Reps/Duration 30 sec trials PT-OP-T Assessment and Plan Start: 02/02/21 14:17 Freq: Status: Active Protocol: Document 03/09/21 13:38 AW (Rec: 03/09/21 16:31 AW [email or web address]) Physical Therapy Assessment Goals Three Impairment strength/stability Short Term Goal (STG) Pt will improve left ankle strength to 5/5 all planes 03/09/21: Improved to 4+/5 with no pain all planes STG Duration 4 weeks - 03/02/21 Intermediate Goal (LTG) Pt will perform single leg stance 30 seconds on left leg to demonstrate improved ankle stability. 03/05/21 - LLE 20-25 sec RLE 30 sec Two Impairment ROM Short Term Goal (STG) Pt will increase left ankle dorsiflexion to five degrees or greater with knee flexed 03/05/21- GOAL MET 9 degrees STG Duration 4 weeks - 03/02/21 Intermediate Goal (LTG) Pt will descend stairs without heel lift and without pain to demonstrate functional ROM. 03/05/21 - achieved LTG Duration Achieved One Impairment gait Short Term Goal (STG) Pt will walk 30 minutes on paved surface without increase in baseline pain 03/05/21 - pt walked [address] [employer] [address] wihtout increase in pain STG Duration Achieved Intermediate Goal (LTG) Pt will walk 60 minutes on uneven surface with no left ankle pain 03/05/21 - pt can walk 2x [address] and [email or web address] [address] without any reported pain LTG Duration Achieved Progress Towards Goals Progress Towards Goals Goals Met Assessment Summary Assessment Pt has met all goals and is confident in his ability to negotiate flat and uneven terrain including steep inclines. Pt is appropriate for discharge at this time and understands he will need a new referral if he wishes to return to PT. Physical Therapy Plan Therapeutic Interventions Therapeutic Interventions Balance Training,Gait Training ,Home Exercise Program,Joint Mobilizations,Manual Therapy, Neuromuscular Re-education, Orthotic/Prosthetic Management ,Patient/Caregiver Education, Self-Care/Home Management,Soft Tissue Mobilization,Taping, Therapeutic Activities, Therapeutic Exercises Modalities Cold Pack/Ice Massage Discharge Physical Therapy Discharge Reasons Goals Met Discharge Comments Pt has met all goals and is confident in his ability to negotiate flat and uneven terrain including steep inclines. Pt is appropriate for discharge at this time and understands he will need a new referral if he wishes to return to PT.
== END 2021-03-19 09:59 | disposition home or self-care (01) ==
LOC: PHYS 13:00
PROVIDERS: Family Provider Student in an Organized Health Care Education/Training Program; PCP Student in an Organized Health Care Education/Training Program; Referring Provider Podiatrist Foot & Ankle Surgery; Visit Provider Podiatrist Foot & Ankle Surgery
DX: M76.821 Posterior tibial tendinitis, right leg (principal); M76.822 Posterior tibial tendinitis, left leg; R29.3 Abnormal posture; R26.2 Difficulty in walking, not elsewhere classified
CPT/HCPCS: 97110; 97112; 97140; 97161

== ENCOUNTER → 2021-03-17 11:10 | Outpatient (CLI) | payer OTHER, SELFPAY ==
--- NOTE | 2021-03-17 | DI.RAD.S_ITS ---
PROCEDURE: XR HAND RT MIN 3V INDICATIONS: Localized swelling, mass and lump, right upper limb TECHNIQUE: 3 views of the hand(s) acquired. COMPARISON: None. FINDINGS: Bones: No fractures or dislocations. Carpal bones are normally aligned. No suspicious bony lesions. Soft tissues: No suspicious soft tissue calcifications. IMPRESSION: Negative examination. If the patient's pain or other symptoms persist, consider further evaluation with MRI Dictated by: Luis Chris M.D. on 03/17/2021 at 12:58 Approved by: Luis Chris M.D. on 03/17/2021 at 13:00
--- NOTE | 2021-03-17 14:30 | DI.US.S_ITS ---
PROCEDURE: US ABD AORTA ANEURYSM SCREEN INDICATIONS: SCREENING TECHNIQUE: Real time scanning was performed of the aorta and iliac arteries, with image documentation. COMPARISON: None. FINDINGS: Aorta: Proximal aortic diameter measures 2.5 cm. Mid-aorta measures 2.2 cm. Distal aortic diameter is 2.3 cm. Iliac arteries: Right common iliac artery measures 1.4 cm. Left common iliac artery measures 1.7 cm. Note: The urinary bladder is unusually enlarged, with a calculated prevoid bladder volume of approximately 1840 cc and the bladder appeared even larger after attempting voiding. IMPRESSION: No evidence of aneurysm found or dissection within the aorta and the iliac arteries. Note was made of unusually distended urinary bladder, measuring up to 1840 cc before voiding. After voiding the volume was calculated as even slightly greater. The information was immediately conveyed to the ordering healthcare provider who directed the patient be treated with catheterization in the emergency room. Dictated by: Rigoberto Rosa M.D. on 03/17/2021 at 15:28 Approved by: Rigoberto Rosa M.D. on 03/17/2021 at 15:30
== END ==
PROVIDERS: Family Provider Student in an Organized Health Care Education/Training Program; PCP Student in an Organized Health Care Education/Training Program; Referring Provider Student in an Organized Health Care Education/Training Program; Visit Provider Student in an Organized Health Care Education/Training Program
DX: Z13.6 Encounter for screening for cardiovascular disorders (principal); R22.31 Localized swelling, mass and lump, right upper limb; N32.89 Other specified disorders of bladder
CPT/HCPCS: 73130; 76706

== ENCOUNTER 2021-03-17 15:07 | Emergency (ER) | payer OTHER, SELFPAY ==
[2021-03-17 15:10] VITALS: BP 154/81; PULSE 97; RESP 14; TEMP 36.9; O2SAT 96; BMI 32.2
--- NOTE | 2021-03-17 15:35 | ED.GENADULT ---
HPI - General Adult General Chief complaint: Urogenital-Male Stated complaint: sent by MD for a catheter Time Seen by Provider: 03/17/21 15:13 Source: patient Mode of arrival: Ambulatory Limitations: no limitations History of Present Illness HPI narrative: Patient is a 65-year-old male who underwent an abdominal ultrasound as an outpatient just prior to arrival here in the emergency department. Apparently was noted on that ultrasound that his bladder was very large and distended. He states he was sent to the emergency department by his doctor for catheter. He states that he has had issues with urinary retention in the past. He has not having much discomfort. Is urinating currently. He states this has happened in the past and he goes through a period of time where he has problems urinating but then things seemed to improve. He is not having any fevers. Is not constipated. His actually having some issues with loose stools. Is on metformin for prediabetes. Related Data Home Medications Medication Instructions Recorded Confirmed terazosin 2 mg PO QDAY #0 11/20/16 06/19/20 triamcinolone acetonide [Nasacort] 1 puff INTRANASAL PRN PRN #0 11/20/16 metformin 1,000 mg PO BID 06/19/20 06/19/20 Allergies Allergy/AdvReac Type Severity Reaction Status Date / Time Penicillins Allergy Mild Rash Verified 03/17/21 15:15 NSAIDS (Non-Steroidal Allergy Unknown Verified 03/17/21 15:15 Anti-Inflamma [NSAIDS (NON-STEROIDAL ANTI-INFLAMMA] Review of Systems Constitutional Constitutional: Denies fever(s) Gastrointestinal Gastrointestinal: Reports diarrhea, Denies nausea and Denies vomiting Genitourinary Genitourinary: Denies dysuria and Reports urinary hesitancy Genitourinary: Denies dysuria and Reports urinary hesitancy Musculoskeletal Musculoskeletal: Denies back pain Hematologic/Lymphatic On Anticoagulants: No Patient History Medical History Pre-diabetes Social History household members: none Smoking Status: Never smoker eating out: 1-3 times/week Type(s) of exercise: walking, weight lifting, advised to exercise at least 150 min/week (moderate intensity aerobic) and advised to perform resistance training at least 2x/week Smoking Status: Never smoker alcohol intake frequency: holidays/special occasions only Substance Use Type: does not use Exam Initial Vital Signs Initial Vital Signs: Vital Signs Temperature 98.5 F 03/17/21 15:10 Pulse Rate 97 H 03/17/21 15:10 Respiratory Rate 14 03/17/21 15:10 Blood Pressure 154/81 H 03/17/21 15:10 Pulse Oximetry 96 03/17/21 15:10 Const General: cooperative and comfortable Limitations: mental status not altered HENMT Head: normal to inspection and normocephalic Resp Effort & Inspection: normal respiratory effort Cardio Rate: regular rate GI Inspection: non-distended Palpation: soft and No tender Neuro General: patient alert and patient awake Extrem General: normal to inspection Psych Appearance: grossly normal and well kempt Course Vital Signs Vital signs: Vital Signs - 8 hr 03/17/21 15:10 Temperature 98.5 F Pulse Rate 97 H Respiratory Rate 14 Blood Pressure 154/81 H Pulse Oximetry 96 Medical Decision Making Imaging Data US - abdomen: Radiologist's Impression: [address] [id number] ReportSigned Patient: Nigel Steele LMR#: [id number]: [id number]:[id number]/Sex: 65 / MDate of Service: 03/17/21[id number] Procedure: US abd aorta aneurysm screen Ordering Provider: Jennifer More MD PROCEDURE: US ABD AORTA ANEURYSM SCREEN INDICATIONS: SCREENING TECHNIQUE: Real time scanning was performed of the aorta and iliac arteries, with image documentation. COMPARISON: None. FINDINGS: Aorta: Proximal aortic diameter measures 2.5 cm. Mid-aorta measures 2.2 cm. Distal aortic diameter is 2.3 cm. Iliac arteries: Right common iliac artery measures 1.4 cm. Left common iliac artery measures 1.7 cm. Note: The urinary bladder is unusually enlarged, with a calculated prevoid bladder volume of approximately 1840 cc and the bladder appeared even larger after attempting voiding. IMPRESSION: No evidence of aneurysm found or dissection within the aorta and the iliac arteries. Note was made of unusually distended urinary bladder, measuring up to 1840 cc before voiding. After voiding the volume was calculated as even slightly greater. The information was immediately conveyed to the ordering healthcare provider who directed the patient be treated with catheterization in the emergency room. Dictated by: Rigoberto Rosa M.D. on 03/17/2021 at 15:28 Approved by: Rigoberto Rosa M.D. on 03/17/2021 at 15:30 [facility] Narrative Medical decision making narrative: The ultrasound that is included in this note is for reference purposes only. It was ordered by another provider and performed as an outpatient. It was the reason he was sent here to the emergency department. This ultrasound does show a fairly significant distention of his urinary bladder. Had a discussion with the patient regarding this. He did expressed understanding of the size of the bladder. He states that this has happened to him in the past and with time it improves on its own. We did discuss the indications for a urinary catheter. We did discuss the risks of a catheter. We discussed the benefits of the catheter and also the risks and benefits of not placing 1. He expressed understanding of this and stated that he does not want a urinary catheter placed. We did discuss return precautions and follow-up instructions. He was given the information for the local urologist to contact for follow-up. He expressed understanding and agreement with this plan. Discharge Plan Departure Patient Disposition: Home Clinical Impression: Acute retention of urine Instructions: DI for Urinary Retention in Men Activity Restrictions/Additional Instructions: After our discussion you have opted to hold on any bladder catheter for now. I recommend that tomorrow you contact your primary provider for a follow-up. I also recommend you contact the Urology Department here at the hospital at the contact information below. Return to the emergency department for any new or worsening symptoms Prescriptions: No Action terazosin 2 MG capsule 2 mg PO QDAY Qty: 0 RF: 0 triamcinolone acetonide [Nasacort] 55 MCG/PUFF aerosol,spray 1 puff Intranasal PRN PRN (Reason: Adequate Ventilation) Qty: 0 RF: 0 metformin 1,000 mg tablet 1,000 mg PO BID RF: 0 Referrals: Jennifer More MD [Primary Care Provider] - Jayro Peoples MD [Physician] -
--- NOTE | 2021-03-17 15:50 | PC.NURSE ---
Pt reports sent here from [facility] scan for urinary retention. Denies pain/discomfort or feeling like he needs to urinate.
[2021-03-17 15:56] VITALS: BP 142/74; PULSE 71; RESP 20; O2SAT 98
--- OUTSIDE RECORDS SUMMARY | 2021-05-03 08:27 | XMS_ITS | Referral Summary ---
:1955 Author Organization [facility] Address [address] [place] [id number] Care Team Providers Name Role Phone Soila More MD Primary Care Provider Reason for Referral Consultation (Routine) Status Reason Specialty Diagnoses / Referred By Referred To Procedures Contact Contact Authorized Specialty Pulmonary Diagnoses Chronic obstructive pulmonary disease, unspecified COPD type (CMS/HCC) Sekou Palmer [place] Services Disease [facility] Required [address] [place] [phone] [place] [address] Phone: Electronically signed by Sekou Palmer DO atMRI/CAT/PET Scan (Routine) Status Reason Specialty Diagnoses / Referred By Referred To Procedures Contact Contact Closed Specialty Radiology Diagnoses Chronic obstructive pulmonary disease, unspecified COPD type (CMS/HCC) Sekou Palmer [facility] Services Required Procedures CT CHEST WITHOUT CONTRAST DO [facility] [facility] [address] [place] [phone] Phone: Fax: Electronically signed by Sekou Palmer DO at Reason for Visit Reason Comments COPD Evaluate and Treat (Routine) Status Reason Specialty Diagnoses / Procedures Referred By C ontact Referred To Contact Closed Pulmonology Diagnoses Chronic obstructive pulmonary disease, unspecified Jennifer More [facility] Pulmonology Procedures MD Soila [address] [place], [place] [address] [place], [place] Phone: [phone] Fax: Encounter Details Date Type Department Care Team Description 04/09/2021 Office Visit Sekou Cifuentes, Eugenia pardo obstructive Clinics Pulmonology DO pulmonary disease, [place] [address] unspecified COPD type [address] [place] ([facility]) (Primary [place], [place], [place] Dx) [phone] [id number] Allergies Active Allergy Reactions Severity Noted Date Comments Adhesive Tape-Silicones High 07/13/2020 Othe r reaction(s): rash and itching Ibuprofen Itching 01/23/2000 Naproxen Itching 01/23/2000 Nsaids (Non-Steroidal 02/11/2015 Anti-Inflammatory Drug) Penicillins Rash Low 01/22/1961 documented as of this encounter (statuses as of 05/03/2021) Medications Medication Sig Dispensed Refills Start End Date Status Date albuterol HFA Inhale 1-2 0 Activ e (VENTOLIN HFA) 90 puffs 0 mcg/actuation inhaler atorvastatin Take 20 mg by 0 Act atif (LIPITOR) 20 mg mouth 0 tablet blood sugar Use once daily 0 Act atif diagnostic to check 0 (OneTouch Verio glucose for DM test strips) strip E11.9 blood-glucose meter Test glucose 0 Active (OneTouch Verio once daily. 0 Flex Start) kit metFORMIN 0 Active (GLUCOPHAGE) 1,000 0 mg tablet terazosin (HYTRIN) Take 5 mg by 0 Active 5 mg capsule mouth 9 tiotropium bromide Inhale 5 mcg 0 Active (SPIRIVA RESPIMAT) 0 2.5 mcg/actuation inhaler Spiriva Respimat 0 Act atif 2.5 mcg/actuation 0 inhaler triamcinolone Apply topically 0 Active (KENALOG) 0.1 % 1 cream triamcinolone as needed 0 Active (NASACORT) 55 mcg nasal inhaler fluorouraciL Apply topically 0 A ctive (EFUDEX) 5 % cream 1 bromfenac (XIBROM) 1 drop 0 A ctive 0.09 % ophthalmic 0 solution doxycycline 0 Active (MONODOX) 100 mg 1 capsule fluticasone Inhale 1 puff 2 180 each 3 04/09/20 Ac tive propion-salmeteroL (two) times a 1 22 (ADVAIR DISKUS) day Rinse mouth 100-50 mcg/dose with water diskus inhaler after use to reduce aftertaste and incidence of candidiasis. Do not swallow. beclomethasone Inhale 2 puffs 0 04/09/20 Discontinued (QVAR) 80 7 21 (Alternate mcg/actuation therap y) inhaler metFORMIN Take 1,000 mg 0 04/09/20 Discon tinued (GLUCOPHAGE) 1,000 by mouth 0 21 mg tablet beclomethasone inhale 2 puff 0 04/09/20 D iscontinued (Qvar) 40 by inhalation 21 (Alter hanna mcg/actuation route 2 times th erapy) inhaler every day documented as of this encounter (statuses as of 05/03/2021) Active Problems No known active problemsdocumented as of this encounter (statuses as of 05/03/2021) Social History Tobacco Use Types Packs/Day Years Used Date Passive Smoke Exposure - Never Smoker Cigars 15 Smokeless Tobacco: Never Used Alcohol Use Standard Drinks/Week Comments Yes 0 (1 standard drink = 0.6 oz pure alcoho l) occasionally Sex Assigned at Date Recorded Male 04/05/2021 3:08 PM PDT Job Start Date Occupation Industry Not on file Not on file Not on file documented as of this encounter Last Filed Vital Signs Vital Sign Reading Time Taken Comments Blood Pressure 121/77 04/09/2021 8:14 AM PDT Pulse 99 04/09/2021 8:14 AM PDT Temperature 36.6 ??C (97.9 ??F) 04/09/2021 8:14 AM PDT Respiratory Rate - - Oxygen Saturation 95% 04/09/2021 8:14 AM PDT Inhaled Oxygen Concentration - - Weight 97.4 kg (214 lb 11.2 oz) 04/09/2021 8:14 AM PDT Height 170.2 cm (5' 7) 04/09/2021 8:14 AM PDT Body Mass Index 33.63 04/09/2021 8:14 AM PDT documented in this encounter Patient Instructions Patient InstructionsSekou Palmer DO - 04/09/2021 8:20 AM PDT Start the Advair 1 puff twice per day in addition to the Spiriva daily Use your albuterol 30 minutes prior to activity Please call [phone] chest. Start pulmonary rehab Get your blood work drawn documented in this encounter Progress Notes Sekou Palmer, - 04/09/2021 8:20 AM PDT OUTPATIENT PULMONARY CONSULTATION NOTE Date of service: 04/09/21 IMPRESSION and RECOMMENDATIONS: PROMISE KIRKLAND is a 65 y.o. male is being seen as an initial consultation at the request of Jennifer More MD. He presents to the pulmonary clinic for evaluation of obstructive lung disease. Diagnosis Plan 1. Chronic obstructive pulmonary disease, unspecified COPD type (CMS/HCC) Grbih-0-Zgnjavmfygl Deficiency CT CHEST WITHOUT CONTRAST Complete blood count with diff Immunoglobulin E, Total, Serum *SRC MV Referral to Pulmonary Rehab Obstructive lung disease -Does not technically meet COPD criteria with lack of cough or sputum production. Chest imaging unavailable to evaluate for emphysema or hyperinflation which is also a criteria for COPD, and patient matty non-smoker. He does however have obstruction on PFTs and although there is no reversibility, he does have allergies and eczema making me concerned for atopy and asthma. -Moderately severe with air trapping based on PFTs 01/10/2020 -Currently well controlled, however develops shortness of breath with moderate/strenous activity. Recommended using albuterol inhaler 30 minutes prior to exercise. Start Advair 1 puff twice daily to include an ICS in case there is a component of asthma. With Spiriva. -No exacerbations -Check CT chest for evidence of air trapping, emphysema, or evidence of chronic hypersensitivity pneumonitis or bronchiolitis which can also cause obstruction on PFTs. -Check A1AT given the patient's family history of COPD. -Check IgE and CBC with differential in case this is an allergic asthma. -Repeat PFTs are not indicated at this time -He has not completed pulmonary rehab, but is interested. Will place order now. -He was encouraged to remain active -Discussed importance of influenza and pneumonia vaccinations. He is up to date as well as COVID vaccine -Follow up in 3 months or sooner if symptoms worsen. Greater than 45 minutes was spent on this patient encounter with > 50% of the time spent in counseling and/or coordination of care. SUBJECTIVE: Chief Concern: Chief Complaint Patient presents with ??? COPD History of present illness: Promise Kirkland is a 65 y.o. male with past medical history significant for DM2, HTN, HLD and COPD whopresents today for evaluation of COPD. The patient states he was diagnosed with COPD in ~2004. He is only taking Spiriva daily which he started about a year ago after he was switched from Advair after his PFTs. He never really took the Qvar. He has an albuterol inhaler but rarely usese it. He thinks that his breathing did get a little rosaura r once switching to the Spiriva. He feels like the Spiriva is doing ok controlling his breathing. Headmits he was out of shape over the winter and was having trouble breathing with exertion, which hassomewhat improved at this time. Only develops shortness of breath with exercise. He denies cough or sputum production. 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 No CT chest or echocardiogram in the past. The patient states his mother passed from genetic COPD. 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 He wasnot premature at . Dyspnea on exertion: Yes with moderate to strenuous exercises. No trouble with ADL or stairs. 5 times per week he walks 5 miles per days. Chronic cough: No Nighttime awakenings: No Recent hospitalizations: No Recent exacerbations requiring steroids: No History of ICU admission or intubation: No Pets: No Environmental/occupational exposures: No Smoking history: No Passive smoke inhalation: Yes, father Allergic symptoms: Yes to dust and pollen. Does have eczema. Prior medications: Advair, cannot recall why he switched Family history: Mother and aunt had genetic COPD Past medical history: Past Medical History: Diagnosis Date ??? Basal cell carcinoma ??? COPD (chronic obstructive pulmonary disease) (CMS/HCC) ??? Diabetes mellitus (CMS/HCC) ??? Obesity Past surgical history: Past Surgical History: Procedure Laterality Date ??? ANKLE SURGERY Left ??? BASAL CELL CARCINOMA EXCISION x3 ??? BUNIONECTOMY Bilateral ??? FOOT NEUROMA SURGERY Social history: Social History Socioeconomic History ??? Marital status: Single Spouse name: Not on file ??? Number of children: Not on file ??? Years of education: Not on file ??? Highest education level: Not on file Occupational History ??? Not on file Tobacco Use ??? Smoking status: Passive Smoke Exposure - Never Smoker ??? Smokeless tobacco: Never Used Substance and Sexual Activity ??? Alcohol use: Yes Comment: occasionally ??? Drug use: Never ??? Sexual activity: Defer Other Topics Concern ??? Not on file Social History Narrative ??? Not on file Social Determinants of Health Financial Resource Strain: ??? Difficulty of Paying Living Expenses: Food Insecurity: ??? Worried About Running Out of Food in the Last Year: ??? Ran Out of Food in the Last Year: Transportation Needs: ??? Lack of Transportation (Medical): ??? Lack of Transportation (Non-Medical): Physical Activity: ??? Days of Exercise per Week: ??? Minutes of Exercise per Session: Stress: ??? Feeling of Stress : Social Connections: ??? Frequency of Communication with Friends and Family: ??? Frequency of Social Gatherings with Friends and Family: ??? Attends Yazdanism Services: ??? Active Member of Clubs or Organizations: ??? Attends Club or Organization Meetings: ??? Marital Status: Intimate Partner Violence: ??? Fear of Current or Ex-Partner: ??? Emotionally Abused: ??? Physically Abused: ??? Sexually Abused: Family history: History reviewed. No pertinent family history. Review of systems: 10 point review of systems is negative except as mentioned above in history of present illness OBJECTIVE: Medications reviewed Current Outpatient Medications: ??? albuterol HFA (VENTOLIN HFA) 90 mcg/actuation inhaler, Inhale 1-2 puffs, Disp: , Rfl: ??? atorvastatin (LIPITOR) 20 mg tablet, Take 20 mg by mouth, Disp: , Rfl: ??? blood sugar diagnostic (OneTouch Verio test strips) strip, Use once daily to check glucose for DM E11.9, Disp: , Rfl: ??? blood-glucose meter (OneTouch Verio Flex Start) kit, Test glucose once daily., Disp: , Rfl: ??? bromfenac (XIBROM) 0.09 % ophthalmic solution, 1 drop, Disp: , Rfl: ??? doxycycline (MONODOX) 100 mg capsule, , Disp: , Rfl: ??? fluorouraciL (EFUDEX) 5 % cream, Apply topically, Disp: , Rfl: ??? metFORMIN (GLUCOPHAGE) 1,000 mg tablet, , Disp: , Rfl: ??? terazosin (HYTRIN) 5 mg capsule, Take 5 mg by mouth, Disp: , Rfl: ??? tiotropium bromide (SPIRIVA RESPIMAT) 2.5 mcg/actuation inhaler, Inhale 5 mcg, Disp: , Rfl: ??? triamcinolone (KENALOG) 0.1 % cream, Apply topically, Disp: , Rfl: ??? fluticasone propion-salmeteroL (ADVAIR DISKUS) 100-50 mcg/dose diskus inhaler, Inhale 1 puff 2 (two) times a day Rinse mouth with water after use to reduce aftertaste and incidence of candidiasis.Do not swallow., Disp: 180 each, Rfl: 3 ??? metFORMIN (GLUCOPHAGE) 1,000 mg tablet, Take 1,000 mg by mouth, Disp: , Rfl: ??? Spiriva Respimat 2.5 mcg/actuation inhaler, , Disp: , Rfl: ??? triamcinolone (NASACORT) 55 mcg nasal inhaler, as needed, Disp: , Rfl: Physical Exam: BP 121/77 (BP Location: Left arm, Patient Position: Sitting) Pulse 99 Temp 36.6 ??C (97.9 ??F)(Oral) Ht 1.702 m Wt 97.4 kg SpO2 95% BMI 33.63 kg/m?? General: Alert, pleasant and in no distress. Well nourished Neck: Supple HEENT: No scleral icterus. Wearing mask Chest: Normal respiratory effort at rest. Clear to auscultation except for mild crackles at bases Heart: Regular rate and rhythm. No murmur. No lower extremity edema Abdomen: Soft, non-tender, non-distended Skin: No rashes on exposed skin. No jaundice. Erythematous circular areas on face Extremities: No cyanosis, clubbing Neuro: Alert, oriented, no focal deficits, speech fluent Psych: Normal mood and affect Studies: Labs: No recent labs Pulmonary function tests: Personally Reviewed 01/10/2020: FVC 80%, FEV1 61%, FEV1/FVC 0.57. Post FEV1 57%, no significant improvement TLC 115%, RV 189% DLCO 83% Imaging: Personally Reviewed None Cardiac Diagnostics: None PLEASE REFER TO THE TOP OF THIS NOTE FOR ASSESSMENT AND RECOMMENDATIONS Thank you for allowing me to participate in the patient's care. If you have any questions, please do not hesitate to contact me. Sekou Palmer DO [facility] Pulmonary, Critical Care and Sleep Medicine documented in this encounter Plan of Treatment Upcoming Encounters Date Type Specialty Care Team Description 07/02/2021 Office Visit Pulmonology Sekou Palmer DO [address] [place] [address] Scheduled Referrals Name Type Priority Associated Diagnoses Order S chedule *SRC MV Referral to Outpatient Referral Routine Chronic obstru ctive Ordered: Pulmonary Rehab pulmonary disease, 2020 unspecified COPD type (CMS/HCC) documented as of this encounter Results CT CHEST WITHOUT CONTRAST (04/28/2021 1:23 PM PDT) Specimen Narrative Performed At [facility] [place]. [address] PATIENT NAME: PROMISE KIRKLAND : 1955 GENDER: M EXAM DATE: 04/28/2021 ?? 13:24 ORDERED FROM: SIPCT ORDERING PHYSICIAN: SEKOU PALMER CC: ??-- ??- ??- ??- CONTRAST: ? READING STATION ID: [id number] mGy: PROCEDURE: ??CT CHEST WITHOUT CONTRAST INDICATIONS: ??COPD, surveillance TECHNIQUE: Noncontrast 5 mm thick sections acquired from the pulmonary apices to the posterior costophrenic angles. ??1 mm lung window and 7 mm thick MIP axial reformats ??were performed. ??5-mm coronal and sagittal reformat s images were obtained. For radiation dose reduction, th e following was used: ??automated exposure control, adjustment of mA and/or kV according to patient size. ?? COMPARISON: ??None. FINDINGS: ?? Image quality: ??Excellent. ?? Lungs and pleura: ??No definite acute air space opacit ies but over the lung bases there is a subtle patchy alveo lar infiltration pattern, nonspecific but which could represent an early manifestation of atypical/viral pneumonia. ??Please correlate clinically. ??Throughout the lung parenchyma no early manifestation of lung neoplasm is found.. ??No pleural effusions or pneumothorax. ??Central and peripheral airways are pat ent and normal in caliber. ?? Mediastinum: ??Heart size is normal. ??No pericardial effusion. ??No mediastinal adenopathy by size criteria . ??Thoracic aorta and central pulmonary arteries are normal in size. ??Esophagus is normal in caliber. ??No hiatal hernia. ?? Bones and chest wall: ??No suspicious bony lesions. ?? No vertebral body compression fractures. ??No axillary or supraclavicular adenopathy by size criteria. ??Thyroid gland appears normal where well seen . ? ? Abdomen: ??Visualized upper abdominal solid organs and bowel loops appear normal in the absence of contrast. ?? IMPRESSION: ??Large lung volumes consistent with COPD, with relative flattening of the diaphragms on the late ral projection re-formation imaging. ??Bullous emphysema i s not found. No early manifestation of lung neoplasm is suspected. There is a subtle but definite patchy alveolar infiltration pattern at the lung bases which conceivab ly could represent an early manifestation of atypical/vir al pneumonia. ??The appearance is not atypical finding in stable COPD patient's. ??Please correlate clinically f or potential early manifestation of Covid l pradeep disease. Reviewed by: Rigoberto Rosa M.D. on 04/28/2021 at 16:5 2 ? Approved by: Rigoberto Rosa M.D. on 04/28/2021 at 16:5 6 ? Procedure Note Interface, Radiology Results In - 2020 4:53 [place]. [address] PATIENT NAME: PROMISE KIRKLAND : 1955 GENDER: M EXAM DATE: 04/28/2021 13:24 ORDERED FROM: SIPCT ORDERING PHYSICIAN: SEKOU PALMER CC: -- - - - CONTRAST: READING STATION ID: [id number] mGy: PROCEDURE: CT CHEST WITHOUT CONTRAST INDICATIONS: COPD, surveillance TECHNIQUE: Noncontrast 5 mm thick sections acquired from the pulmonary apices to the posterior costophrenic angles. 1 mm lung window and 7 mm thick MIP axial reformats were performed. 5-mm coronal and sagittal reformats images were obtained. For radiation dose reduct ion, the following was used: automated exposure control, adjustment of mA and/or kV according to patient size. COMPARISON: None. FINDINGS: Image quality: Excellent. Lungs and pleura: No definite acute air space opacities but over the lung bases there is a subtle patchy alveolar infiltration pattern, nonspecific but which could represent an early manifestation of atypical/viral pneumonia. Please correlate clinically. Throughout the lung parenchyma no early manifestation of lung neoplasm is found.. No pleural effusions or pneumothorax. Central and peripheral airways are patent and normal in caliber. Mediastinum: Heart size is normal. No pericardial effusion. No mediastinal adenopathy by size criteria. Thoracic aorta and central pulmonary arteries are normal in size. Esophagus is normal in caliber. No hiatal hernia. Bones and chest wall: No suspicious bon y lesions. No vertebral body compression fractures. No axillary or supraclavicular adenopathy by size criteria. Thyroid gland appears normal where well seen . Abdomen: Visualized upper abdominal hannah id organs and bowel loops appear normal in the absence of contrast. IMPRESSION: Large lung volumes consiste nt with COPD, with relative flattening of the diaphragms on the lateral projection re-formation imaging. Bullous emphysema is not found. No early manifestation of lung neoplasm is suspected. There is a subtle but definite patchy al veolar infiltration pattern at the lung bases which conceivably could represent an early manifestation of atypical/viral pneumonia. The appearance is not atypical finding in stable COPD patient's. Please correlate clinically for potential early manifestation of Covid lung disease. Reviewed by: Rigoberto Rosa M.D. on 04/13 at 16:52 Approved by: Rigoberto Rosa M.D. on 04/13 at 16:56 Performing Organization Address City/State/ZIP Code Phon e Number [facility] [address] [place] [id number] Immunoglobulin E, Total, Serum (04/09/2021 9:12 AM PDT) Pathologist Sig nature IgE 13 6 - 495 IU/mL [facility] Specimen Blood - Venous blood (substance) Narrative Performed At Performed at: ??01 - [facility] [address], [place], [place] ??[id number] Lokie Driver: Dejan Salguero MD, Phone: ??[phone] Performing Organization Address City/[facility] Phon e Number [facility] [address] [place] [address] Ugdkv-5-Gzesioabzel Deficiency (04/09/2021 9:12 AM PDT) AAT DNA Analysis Comment [facility] Comment: ? CARRIER ? Single mutation (S) identi fied Interpretation: This result is most consistent with this individual zee ving a single ujtee-9-pdxhbiewtps deficiency allele (gene variant). This analysis detects the S and Z mutations, and does not detect rar e mutations, such as the null alleles. Diagnosis cannot rely on DNA testing alone, and should be combined with phenotyping (PI typing) fo r the most accurate interpretation. Genetic counseling and molecu lar testing for at risk family members are recommended. Individuals with a single S allele have not been repor zoey to have any clinical symptoms, though one study did indicate a pos sible association with asthma. Individuals with a single Z a llele may be at increased risk for decreasing lung function, particula rly if they smoke. They may also be at increased risk for liver di sease (cirrhosis), especially in the presence of environmental risk facto rs such as viruses impacting the liver, and alcohol use. Additional Comment [facility] Information: Comment: Plvsu-2-Eejlmsyiupc Deficiency (AATD) is a genetic dis order, inherited in a co-dominant manner. It is associated with COPD (c hronic obstructive pulmonary disease), early onset emphysema, unexplained liver disease, panniculitis, C-ANCA+vasculitis, and a family history of any of these conditions. The clinical expression ca n be highly variable. Individuals that smoke and are affected with AATD accumulate lung damage at an accelerated rate than those who do n ot smoke or have stopped smoking. Two mutations, Z (E342K) and S (E264V ), account for greater than 95% of the mutant alleles. In [facility], it is estimated that 1 in 12 individuals have either an S or Z allele, and 1 in 477 individuals have some form of deficiency (SS, SZ, ZZ). Mutations: ?E342K (Z) ?E264V (S) Methodology: DNA analysis for the two common mutations of the prote ase inhibitor (PI) gene was performed by multiplex allele-specific P CR amplification followed by gel electrophoresis. Molecul ar-based testing is highly accurate, but as in any laboratory test, rar e diagnostic errors may occur. This test was developed and its performance characteri stics determined by [facility] ([facility]). It has not been cleared or approved by the U.S. Food and Drug Administration. The FDA has determined that such clear ance or approval is not necessary. This test is used for clinical purpo ses. It should not be regarded as investigational or for research. References: ?1. Joint Statement of the [place] Thor[employer] Soci ety and ? Respiratory Society. 2003 Am J Res Crit Care Med 168:818-900. ?2. IZA Hung. Worldwide Racial and Ethnic Di stribution of ? Othdl-7-Bnnbqbgyzkj Deficiency. Summary of a n Analysis of ? Published Genetic Epidemiologic Surveys. Heena st 2002; 122:1818- ? 1829 Electronically Signed CommentComment: [facility] By: Miriam Kauffman, Ph.D., [facility] Specimen Blood - Venous blood (substance) Narrative Performed At Performed at: ??01 - [facility] [address] [facility], [place], [place] ??[address] Lokie Driver: Makenna Messer [facility], Phone: ??[phone] Performing Organization Address City/State/ZIP Code Phon e Number [facility] [address] [facility] [address] [place] [address] documented in this encounter Visit Diagnoses Diagnosis Chronic obstructive pulmonary disease, u nspecified COPD type (CMS/HCC) - Primary documented in this encounter Insurance Payer Benefit Plan / Subscriber ID Effective Dates Phone Addre ss Type Group [facility] [id number] 2018-[facility] HEALTH PLAN [facility] documented as of this encounter Advance Directives Documents on File Type Date Recorded 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
== END 2021-03-17 15:57 | disposition home or self-care (01) ==
PROVIDERS: Emergency Provider Emergency Medicine; Family Provider Student in an Organized Health Care Education/Training Program; PCP Student in an Organized Health Care Education/Training Program; Referring Provider Student in an Organized Health Care Education/Training Program
DX: R33.8 Other retention of urine (principal); R19.7 Diarrhea, unspecified; Z13.6 Encounter for screening for cardiovascular disorders; R22.31 Localized swelling, mass and lump, right upper limb; N32.89 Other specified disorders of bladder
CPT/HCPCS: 73130; 76706; 99281; 99283

== ENCOUNTER → 2021-05-18 10:34 | Outpatient (CLI) | payer OTHER, SELFPAY ==
[2021-05-18 11:23] LABS: RBC Urine None Seen (0-5/HPF); WBC Urine None Seen (0-5/HPF)
[2021-05-18 13:53] LABS: Appearance Urine UA CLEAR; Bilirubin Urine UA NEGATIVE (NEGATIVE); Color Urine UA YELLOW; Glucose Urine UA NEGATIVE (Negative); Ketones Urine UA NEGATIVE (NEGATIVE); Leukocyte Esterase Urine UA NEGATIVE (NEGATIVE); Nitrite Urine UA NEGATIVE (Negative); Occult Blood Urine UA NEGATIVE (Negative); Protein Urine UA NEGATIVE (Negative); Urobilinogen Urine UA 0.2 E.U./dL (0.2)
[2021-05-18 14:30] LABS: Bacteria Urine Occasional (0-1)
[2021-05-18 14:31] LABS: Culture Indicated Urine Cult Not Indicated; Urine Comments Microscopic Normal
== END ==
PROVIDERS: Family Provider Student in an Organized Health Care Education/Training Program; PCP Student in an Organized Health Care Education/Training Program; Referring Provider Urology; Visit Provider Urology
DX: R30.0 Dysuria (principal); R33.9 Retention of urine, unspecified; N40.1 Benign prostatic hyperplasia with lower urinary tract symptoms; Q54.1 Hypospadias, penile; N39.43 Post-void dribbling
CPT/HCPCS: 51798; 81001; 99214

== ENCOUNTER → 2021-08-16 15:27 | Outpatient (CLI) | payer OTHER, SELFPAY | PROVIDERS: Family Provider Student in an Organized Health Care Education/Training Program; PCP Student in an Organized Health Care Education/Training Program; Visit Provider Urology | DX: N39.0 Urinary tract infection, site not specified (principal); R33.9 Retention of urine, unspecified | CPT/HCPCS: 51798; 87077; 87086; 87186 ==

== ENCOUNTER → 2021-09-02 09:15 | Outpatient (CLI) | payer OTHER, SELFPAY ==
--- NOTE | 2021-09-02 09:16 | DI.RAD.S_ITS ---
PROCEDURE: FL CYSTOGRAM INDICATIONS: Urinary retention COMPARISON: None. FINDINGS: KUB: Preprocedural dental technology advisor film demonstrates a normal bowel gas pattern. A Herring catheter is present. No suspicious abdominal calcifications. Bony structures are unremarkable. Bladder: The filled bladder appears normal in contour. Early images demonstrate no bladder wall trabeculations. 4.9 x 5.3 centimeter diverticulum involving the left lateral-inferior urinary bladder. There is a filling defect within the diverticulum which could represent air or noncalcified stone. No vesicoureteral reflux or contrast extravasation. IMPRESSION: 4.9 x 5.3 centimeter left lateral-inferior urinary bladder diverticulum. 2.4 centimeter filling defect in the left bladder diverticulum which could represent trapped air or noncalcified stone. Dictated by: Patria Carlin MD, PhD on 09/02/2021 at 12:10 Approved by: Patria Carlin MD, PhD on 09/02/2021 at 12:17
== END ==
PROVIDERS: Family Provider Student in an Organized Health Care Education/Training Program; PCP Student in an Organized Health Care Education/Training Program; Referring Provider Urology; Visit Provider Urology
DX: N31.2 Flaccid neuropathic bladder, not elsewhere classified (principal); N32.3 Diverticulum of bladder; T83.511A Infection and inflammatory reaction due to indwelling urethral catheter, initial encounter; N39.0 Urinary tract infection, site not specified; Q54.1 Hypospadias, penile; N40.1 Benign prostatic hyperplasia with lower urinary tract symptoms; R33.9 Retention of urine, unspecified; N35.912 Unspecified bulbous urethral stricture, male; N39.43 Post-void dribbling
CPT/HCPCS: 74430

== ENCOUNTER → 2021-09-16 10:18 | Outpatient (CLI) | payer OTHER, SELFPAY | PROVIDERS: Family Provider Student in an Organized Health Care Education/Training Program; PCP Student in an Organized Health Care Education/Training Program; Visit Provider Urology | DX: N39.0 Urinary tract infection, site not specified (principal) | CPT/HCPCS: 51702; 87077; 87086; 87147; 87186 ==

== ENCOUNTER → 2021-09-27 09:43 | Outpatient (CLI) | payer OTHER, SELFPAY ==
[2021-09-27 15:42] LABS: COVID19 -Nasal RAPID Negative (Negative)
== END ==
PROVIDERS: Family Provider Student in an Organized Health Care Education/Training Program; PCP Student in an Organized Health Care Education/Training Program; Referring Provider Urology; Visit Provider Urology
DX: Z20.822 Contact with and (suspected) exposure to COVID-19 (principal)
CPT/HCPCS: 87635; C9803

== ENCOUNTER → 2021-09-28 09:46 | Outpatient (CLI) | payer OTHER, SELFPAY ==
[2021-09-28 13:53] LABS: Appearance Urine UA CLEAR; Bilirubin Urine UA NEGATIVE (NEGATIVE); Color Urine UA YELLOW; Glucose Urine UA NEGATIVE (Negative); Ketones Urine UA NEGATIVE (NEGATIVE); Leukocyte Esterase Urine UA NEGATIVE (NEGATIVE); Nitrite Urine UA NEGATIVE (Negative); Occult Blood Urine UA NEGATIVE (Negative); Protein Urine UA NEGATIVE (Negative); Urobilinogen Urine UA 0.2 E.U./dL (0.2); pH Urine UA 5.5 (4.5-8.0)
[2021-09-28 14:13] LABS: Bacteria Urine None Seen; Culture Indicated Urine Cult Not Indicated; RBC Urine None Seen (0-5/HPF); WBC Urine None Seen (0-5/HPF)
== END ==
PROVIDERS: Family Provider Student in an Organized Health Care Education/Training Program; PCP Student in an Organized Health Care Education/Training Program; Visit Provider Urology
DX: R30.0 Dysuria (principal); N39.0 Urinary tract infection, site not specified
CPT/HCPCS: 51701; 81001

== ENCOUNTER 2021-09-30 07:21 | Day surgery (SDC) | payer OTHER, SELFPAY ==
[2021-09-23 14:26] VITALS: BMI 30.4
[2021-09-30] VITALS (8 sets, daily range): BP systolic 117–138; BP diastolic 72–83; PULSE 75–91; RESP 12–18; TEMP 36.4–36.6; O2SAT 94–96; BMI 30.4
--- NOTE | 2021-09-30 | DI.RAD.S_ITS ---
PROCEDURE: XR ABDOMEN 1V INDICATIONS: CYSTOGRAM. BLADDER DIVERTICULUM TECHNIQUE: One view of the abdomen acquired. COMPARISON: None. FINDINGS: 21 spot fluoroscopic intraoperative images during cystogram. No definite diverticulum is identified on these images however recommend correlation to real-time observations. Dictated by: Luis Chris M.D. on 10/01/2021 at 10:40 Approved by: Luis Chris M.D. on 10/01/2021 at 10:44
[2021-09-30] MEDS: LACTATED RINGERS 1,000 ML 42 ML IV (08:17)
--- NOTE | 2021-09-30 08:30 | SUR.OPER ---
Lithotomy on padded OR bed, head on pillow, arms secured on padded arm boards at <90 degrees abduction. Legs secured in padded yellow fins stirrups.
--- NOTE | 2021-09-30 08:37 | PM.PREOP ---
Pre-operative Note COVID-19 COVID-19 status: Negative Result date/Date tested (Pos, Neg/Pending): 09/27/21 Interval Note History & Physical reviewed/Exam performed by Physician: Yes Changes to H&P: No
[2021-09-30] MEDS: CIPROFLOXACIN 400 MG/200 ML PIGGYBACK 200 MG IV (08:44)
[2021-09-30] MEDS: BUPIVACAINE 0.25% (PF) VIAL 30 ML INJ (09:06)
[2021-09-30] MEDS: MINERAL OIL LIGHT TOPICAL 10 ML TOP (09:06)
[2021-09-30] MEDS: IOPAMIDOL 50 ML VIAL INJ (09:10)
--- NOTE | 2021-09-30 09:21 | SUR.OPER ---
Lithotomy on padded OR bed, head on pillow, arms secured on padded arm boards at <90 degrees abduction. Legs secured in padded yellow fins stirrups.
--- NOTE | 2021-09-30 09:35 | P.OP_ITS ---
Procedure & Clinicians Procedure: Cystoscopy, cystogram, direct vision placement of suprapubic catheter. Same procedure as scheduled: Yes Indications: This is a very pleasant gentleman who presented originally with a large volume in his bladder and urinary retention. He has had Herring catheter drainage and his urinary retention has failed to resolve. At flexible cystoscopy to evaluate he appeared on the left have a ?chimney like ?diverticula on the left patient had a cystogram done in Radiology which fail to adequately delineate his anatomy. Thus a cystogram will be performed today. Because of the hypotonicity of his bladder and the failure of his urinary retention does to resolved; as well as his hypospadias a suprapubic catheter is being placed today. Surgeon: Wei Miles Click Yes if Unassisted: Yes Anesthesia Type: General Operative Notes Findings: Urethral meatus exhibits distal shaft hypospadias. Urethra is otherwise normal along its length save the changes of indwelling Herring catheter. Prostate is minimally to moderately obstructive. Within the bladder the ureteral orifices are normal position with clear efflux. And there are no mucosal lesions. At cystogram there is a diverticula broad-based large looking like a ?ear ?on the left side of the bladder. With drainage this does drain well. The bladder easily held in excess of 600 cc. But did appear full. Hair Assistant images were collected via the for fluoroscope. The suprapubic tube was placed in the midline 2 finger breaths above the pubic symphysis. This was an 18 [place] all silicone catheter secured in place with nylon. Closure Type: not applicable Specimen(s): none sent Applied: catheter (Eighteen Com[place]an all silicone catheter as a suprapubic tube 10 cc of sterile water in the balloon) Estimated Blood Loss (mL): 10 Blood products transfused: none Procedure in detail: Procedure in detail: After informed consent was obtained, the patient was id entified and brought to the operating room where he was placed in the supine position on the table. Anesthesia was induced maintained and at that point the patient was transition to a lithotomy position. The patient was then prepped, draped and prepared in a sterile fashion for the above procedures. After prepping, draping and ensuring an adequate level of anesthesia 20 [place]oran cystoscope was passed through the urethra and into the bladder. Once within the bladder the fluoroscope was brought in and the bladder was filled with Isovue. Hair Assistant images were collected. And the bladder was drained with a drainage film being collected also. With these findings and hand attention was then turned to placing the suprapubic tube. The patient was placed in Trendelenburg. The Bladder was then filled and under direct vision, 2 finger breaths above the pubic symphysis in the midline a spinal needle was passed through the abdominal wall and into the bladder. The bladder wall subcutaneous tissues and skin were infiltrated with 0.25% Marcaine plain. A transverse incision was made with an 11 blade. Points of bleeding were controlled with electrocautery. The trocar and introducer sheath were then passed under direct vision into the bladder. Note the bladder was completely full at this intervention. The trocar was then removed and the catheter passed through the sheath into the bladder for the balloon was filled with 10 cc of sterile water. The sheath was then backed out and removed. The catheter and balloon were observed to be in good position and hemostasis was good. The skin edges around the catheter were then reapproximated with a horrible was on a mattress of 3-0 nylon. The catheter was secured in place with a 3-0 nylon. The bladder was once again observed hemostasis was good the bladder was drained the scope was removed. The suprapubic tube was then dressed with gauze and fluffs. And Medipore tape was placed over it. Catheter was placed to gravity drainage and the patient was awakened having tolerated the procedure well. The patient was then moved to the postanesthesia care unit to follow up in my office in 10 days for stitch removal and then in 30 days for initial suprapubic tube change. There were no complications Complications: none Post-operative Condition: stable Disposition: PACU Plan for aftercare: Patient follow-up my office 10 days for suture removal and in 30 days for initial suprapubic change.
--- NOTE | 2021-09-30 09:56 | SUR.PHASEI ---
Received to PACU after general anesthesia. Airway patent, self maintained. Report from Dr Adams and TAYA Apple.
[2021-09-30] MEDS: OXYBUTYNIN 5 MG TABLET PO (10:10)
[2021-09-30] MEDS: OXYCODONE/ACETAMINOPHEN 5/325 TABLET 1 TAB PO (10:11)
--- NOTE | 2021-09-30 11:01 | SUR.PHASEII ---
Extra gauze and tape sent home with pt.
== END 2021-09-30 10:48 | disposition home or self-care (01) ==
PROVIDERS: Family Provider Student in an Organized Health Care Education/Training Program; PCP Student in an Organized Health Care Education/Training Program; Referring Provider Urology; Visit Provider Urology
PROC: 0TJB8ZZ Inspection of Bladder, Via Natural or Artificial Opening Endoscopic (ICD-10-PCS; CPT 52000; principal; 2021-09-30 09:00)
PROC: 0T9B30Z Drainage of Bladder with Drainage Device, Percutaneous Approach (ICD-10-PCS; CPT 51102; 2021-09-30 09:00)
DX: Q54.1 Hypospadias, penile (principal); N40.1 Benign prostatic hyperplasia with lower urinary tract symptoms; R33.8 Other retention of urine; N32.3 Diverticulum of bladder; N31.2 Flaccid neuropathic bladder, not elsewhere classified; T83.511A Infection and inflammatory reaction due to indwelling urethral catheter, initial encounter
CPT/HCPCS: 52276; 51726; 74018; 76000; J0744; J1100; J2405; J2704; J3010

== ENCOUNTER → 2021-10-22 13:55 | Outpatient (CLI) | payer OTHER, SELFPAY | PROVIDERS: Family Provider Student in an Organized Health Care Education/Training Program; PCP Student in an Organized Health Care Education/Training Program; Visit Provider Urology | DX: R33.9 Retention of urine, unspecified (principal) | CPT/HCPCS: 51702; 87077; 87086; 87147; 87186 ==

== ENCOUNTER → 2021-12-22 11:28 | Outpatient (CLI) | payer OTHER, SELFPAY | PROVIDERS: Family Provider Student in an Organized Health Care Education/Training Program; PCP Student in an Organized Health Care Education/Training Program; Visit Provider Urology | DX: N39.0 Urinary tract infection, site not specified (principal) | CPT/HCPCS: 51703; 87077; 87086; 87147; 87186 ==

== ENCOUNTER → 2022-01-19 09:29 | Outpatient (CLI) | payer OTHER, SELFPAY | PROVIDERS: Family Provider Student in an Organized Health Care Education/Training Program; PCP Student in an Organized Health Care Education/Training Program; Visit Provider Urology | DX: R30.0 Dysuria (principal); R33.9 Retention of urine, unspecified | CPT/HCPCS: 51705; 87077; 87086; 87147; 87186 ==

== ENCOUNTER → 2022-02-22 09:54 | Outpatient (CLI) | payer OTHER, SELFPAY ==
[2022-02-22 10:22] LABS: Appearance Urine UA CLEAR; Bilirubin Urine UA NEGATIVE (NEGATIVE); Color Urine UA YELLOW; Glucose Urine UA NEGATIVE (Negative); Ketones Urine UA NEGATIVE (NEGATIVE); Leukocyte Esterase Urine UA 2+ (NEGATIVE); Nitrite Urine UA POSITIVE (Negative); Occult Blood Urine UA 3+ (Negative); Protein Urine UA TRACE (Negative); Specific Gravity Urine UA 1.025 (1.000-1.035); Urobilinogen Urine UA 0.2 E.U./dL (0.2); pH Urine UA 5.5 (4.5-8.0)
[2022-02-22 10:24] LABS: Culture Indicated Urine Specimen Cultured
== END ==
PROVIDERS: Family Provider Student in an Organized Health Care Education/Training Program; PCP Student in an Organized Health Care Education/Training Program; Visit Provider Urology
DX: R30.0 Dysuria (principal); R33.9 Retention of urine, unspecified
CPT/HCPCS: 51703; 81001; 87077; 87086; 87147; 87186; 99213

== ENCOUNTER → 2022-03-03 14:51 | Outpatient (CLI) | payer OTHER, SELFPAY | PROVIDERS: Family Provider Student in an Organized Health Care Education/Training Program; PCP Student in an Organized Health Care Education/Training Program; Visit Provider Urology | DX: R30.0 Dysuria (principal); R33.9 Retention of urine, unspecified; N35.912 Unspecified bulbous urethral stricture, male; N31.2 Flaccid neuropathic bladder, not elsewhere classified | CPT/HCPCS: 81002; 87077; 87086; 87186; 99214 ==

== ENCOUNTER → 2022-05-03 10:26 | Outpatient (CLI) | payer OTHER, SELFPAY | PROVIDERS: Family Provider Student in an Organized Health Care Education/Training Program; PCP Student in an Organized Health Care Education/Training Program; Visit Provider Urology | DX: R30.0 Dysuria (principal); R33.9 Retention of urine, unspecified | CPT/HCPCS: 51702; 87086 ==

== ENCOUNTER → 2022-06-02 12:06 | Outpatient (CLI) | payer OTHER, SELFPAY | PROVIDERS: Family Provider Student in an Organized Health Care Education/Training Program; PCP Student in an Organized Health Care Education/Training Program; Visit Provider Urology | DX: R30.0 Dysuria (principal); R33.9 Retention of urine, unspecified | CPT/HCPCS: 87077; 87086; 87186 ==

== ENCOUNTER → 2022-06-27 15:56 | Outpatient (CLI) | payer OTHER, SELFPAY ==
[2022-06-27 18:07] LABS: Bilirubin Urine UA NEGATIVE (NEGATIVE); Color Urine UA YELLOW; Glucose Urine UA NEGATIVE (Negative); Ketones Urine UA NEGATIVE (NEGATIVE); Leukocyte Esterase Urine UA 2+ (NEGATIVE); Nitrite Urine UA POSITIVE (Negative); Occult Blood Urine UA 3+ (Negative); Protein Urine UA 2+ (Negative); Specific Gravity Urine UA 1.015 (1.000-1.035); Urobilinogen Urine UA 0.2 E.U./dL (0.2); pH Urine UA 6.5 (4.5-8.0)
[2022-06-27 18:08] LABS: Appearance Urine UA CLOUDY
[2022-06-27 18:43] LABS: Bacteria Urine Many (>30); Culture Indicated Urine Specimen Cultured; RBC Urine 0-1/HPF (0-5/HPF); WBC Urine >100/HPF (0-5/HPF)
== END ==
PROVIDERS: Family Provider Student in an Organized Health Care Education/Training Program; PCP Student in an Organized Health Care Education/Training Program; Referring Provider Urology; Visit Provider Urology
DX: R30.0 Dysuria (principal)
CPT/HCPCS: 81001; 87077; 87086; 87147; 87186

== ENCOUNTER → 2022-07-04 11:03 | Outpatient (CLI) | payer OTHER, SELFPAY | PROVIDERS: Family Provider Student in an Organized Health Care Education/Training Program; PCP Internal Medicine; Visit Provider Urology | DX: T83.511A Infection and inflammatory reaction due to indwelling urethral catheter, initial encounter (principal); N39.0 Urinary tract infection, site not specified; R33.9 Retention of urine, unspecified | CPT/HCPCS: 51702; 87086 ==

== ENCOUNTER → 2022-08-02 10:16 | Outpatient (CLI) | payer OTHER, SELFPAY | PROVIDERS: Family Provider Student in an Organized Health Care Education/Training Program; PCP Internal Medicine; Visit Provider Urology | DX: N39.0 Urinary tract infection, site not specified (principal); T83.511A Infection and inflammatory reaction due to indwelling urethral catheter, initial encounter; Z43.5 Encounter for attention to cystostomy; R33.9 Retention of urine, unspecified | CPT/HCPCS: 51702; 87077; 87086; 87147; 87186 ==

== ENCOUNTER → 2022-09-07 14:46 | Outpatient (CLI) | payer OTHER, SELFPAY ==
[2022-09-07 15:44] LABS: COVID19 -Nasal RAPID Negative (Negative)
== END ==
PROVIDERS: Family Provider Student in an Organized Health Care Education/Training Program; PCP Internal Medicine; Referring Provider Internal Medicine; Visit Provider Internal Medicine
DX: Z20.822 Contact with and (suspected) exposure to COVID-19 (principal)
CPT/HCPCS: 87635; C9803

== ENCOUNTER → 2022-09-08 15:00 | Outpatient (CLI) | payer OTHER, SELFPAY ==
--- NOTE | 2022-09-14 10:58 | PM.PFT.1 ---
Pulmonary Function Test Referral & Results Date Patient Seen: 09/08/22 Requesting provider: Annia Servin Results: The spirometry demonstrates an FVC of 3.15 L which is 76% of predicted. The FEV1 was measured at 1.92 L which is 63% of predicted. The FEV1/FVC ratio was 61 which is 82% of predicted. Following the administration of bronchodilator there was no notable improvement. Lung volumes show an SVC of 3.10 L which is 71% of predicted. The diffusing capacity was measured at 22.33 which is 75% of predicted. No hemoglobin value was provided, so no correction for potential anemia could be made, if appropriate. The maximum voluntary ventilation was minimally reduced Interpretation: This study demonstrates mild to moderate obstructive lung disease based on reduction FEV1 and minimal reduction FEV1/FVC ratio. There really is no notable evidence of benefit following bronchodilator administration There is a moderate reduction in lung volumes suggesting the presence of anop-lo-iomsaofn restrictive lung disease which may explain some of the abnormality in the FEV1 above There is also mild reduction diffusing capacity suggesting the presence of disease at the capillary alveolar level Compared to PFTs performed in December 2019, current study is essentially unchanged Clinical correlation suggested
== END ==
PROVIDERS: Family Provider Student in an Organized Health Care Education/Training Program; PCP Internal Medicine; Referring Provider Internal Medicine; Visit Provider Internal Medicine
DX: J45.40 Moderate persistent asthma, uncomplicated (principal); E88.01 Alpha-1-antitrypsin deficiency; J44.9 Chronic obstructive pulmonary disease, unspecified
CPT/HCPCS: 94060; 94726; 94729

== ENCOUNTER → 2022-09-09 14:29 | Outpatient (CLI) | payer OTHER, SELFPAY | PROVIDERS: Family Provider Student in an Organized Health Care Education/Training Program; PCP Internal Medicine; Visit Provider Urology | DX: N35.912 Unspecified bulbous urethral stricture, male (principal); N40.1 Benign prostatic hyperplasia with lower urinary tract symptoms; Q54.1 Hypospadias, penile; R33.9 Retention of urine, unspecified; Z43.5 Encounter for attention to cystostomy | CPT/HCPCS: 52000; 87077; 87086; 87147; 87186 ==

== ENCOUNTER → 2022-10-10 13:15 | Outpatient (CLI) | payer OTHER, SELFPAY | PROVIDERS: Family Provider Student in an Organized Health Care Education/Training Program; PCP Internal Medicine; Visit Provider Urology | DX: N31.2 Flaccid neuropathic bladder, not elsewhere classified (principal) | CPT/HCPCS: 51702; 87077; 87086; 87147; 87186 ==

== ENCOUNTER → 2022-11-08 10:19 | Outpatient (CLI) | payer OTHER, SELFPAY | PROVIDERS: Family Provider Student in an Organized Health Care Education/Training Program; PCP Internal Medicine; Visit Provider Specialist | DX: N31.2 Flaccid neuropathic bladder, not elsewhere classified (principal); N32.3 Diverticulum of bladder; N35.912 Unspecified bulbous urethral stricture, male; N39.0 Urinary tract infection, site not specified; N40.1 Benign prostatic hyperplasia with lower urinary tract symptoms; R33.9 Retention of urine, unspecified; T83.511A Infection and inflammatory reaction due to indwelling urethral catheter, initial encounter; Z43.5 Encounter for attention to cystostomy | CPT/HCPCS: 51702; 87077; 87086; 87147; 87186 ==

== ENCOUNTER → 2022-11-25 08:29 | Outpatient (CLI) | payer OTHER, SELFPAY ==
[2022-11-25 09:03] LABS: Hematocrit 43.1 % (41-53); Mean Corpuscular HGB Conc 34.7 % (30-36); Mean Corpuscular Volume 89.4 fL (80-100); Platelet Count 220 X10^3/uL (150-400); Red Blood Cell Count 4.83 X10^6/uL (4.5-5.9); Red Cell Distribution Width 13.6 % (11.6-14.8); White Blood Cell Count 6.3 X10^3/uL (4.5-11.0)
[2022-11-25 09:34] LABS: Alanine Aminotransferase 24 IU/L (<50); Albumin 4.2 g/dL (3.5-5.0); Albumin Globulin Ratio 1.6 (1.0-2.8); Alkaline Phosphatase 46 U/L (38-126); Aspartate Aminotransferase 25 IU/L (17-59); BUN Creatinine Ratio 20.3 (6-22); Bilirubin Total 0.6 mg/dL (0.2-1.3); Blood Urea Nitrogen 16 mg/dL (9-20); Carbon Dioxide 27 mmol/L (22-32); Chloride 101 mmol/L (98-107); Cholesterol 145 mg/dL (140-199); Estimated Glomerular Filt Rate > 60 mL/min (>60); Globulin 2.7 g/dL (1.7-4.1); Glucose 150 mg/dL (80-110); HDL Cholesterol 47 mg/dL (40-60); HEMOLYSIS < 15 (0-50); LDL Cholesterol Calculated 79 mg/dL (<100); Potassium 4.5 mmol/L (3.4-5.1); Sodium 137 mmol/L (137-145); Total Protein 6.9 g/dL (6.3-8.2); Triglycerides 96 mg/dL (35-150)
[2022-11-25 09:45] LABS: Hemoglobin A1C% w Est Avg Glu 7.9 % (4.0-6.0)
[2022-11-25 10:07] LABS: TSH w/ Reflex to FT4 3.73 uIU/mL (0.47-4.68)
[2022-11-25 18:01] LABS: Microalbumin Urine Random 2.4 mg/dL (0-1.6)
[2022-11-25 18:03] LABS: Creatinine Urine Random 38.1 mg/dL; Microalbumi Creatinin Ratio Ur 62.9 ug/mg CR (<30)
== END ==
PROVIDERS: PCP Internal Medicine; Referring Provider Internal Medicine; Visit Provider Internal Medicine
DX: E11.69 Type 2 diabetes mellitus with other specified complication (principal); N40.1 Benign prostatic hyperplasia with lower urinary tract symptoms; E78.2 Mixed hyperlipidemia; E78.5 Hyperlipidemia, unspecified; I10 Essential (primary) hypertension
CPT/HCPCS: 36415; 80053; 80061; 82043; 82570; 83036; 84153; 84443; 85027

== ENCOUNTER → 2022-12-06 09:43 | Outpatient (CLI) | payer OTHER, SELFPAY | PROVIDERS: PCP Internal Medicine; Visit Provider Specialist | DX: N40.1 Benign prostatic hyperplasia with lower urinary tract symptoms (principal); N31.2 Flaccid neuropathic bladder, not elsewhere classified; N32.3 Diverticulum of bladder; N35.912 Unspecified bulbous urethral stricture, male; N39.43 Post-void dribbling; R33.9 Retention of urine, unspecified; Z93.59 Other cystostomy status | CPT/HCPCS: 51702; 87077; 87086; 87147; 87186 ==

== ENCOUNTER → 2023-01-03 10:52 | Outpatient (CLI) | payer OTHER, SELFPAY | PROVIDERS: PCP Internal Medicine; Visit Provider Urology | DX: Z93.59 Other cystostomy status (principal) | CPT/HCPCS: 17250; 51702; 87077; 87086; 87147; 87186 ==

== ENCOUNTER → 2023-01-31 10:29 | Outpatient (CLI) | payer OTHER, SELFPAY | PROVIDERS: PCP Internal Medicine; Visit Provider Urology | DX: N31.2 Flaccid neuropathic bladder, not elsewhere classified (principal); N32.3 Diverticulum of bladder; N39.43 Post-void dribbling; N40.1 Benign prostatic hyperplasia with lower urinary tract symptoms; Q54.1 Hypospadias, penile; R33.9 Retention of urine, unspecified | CPT/HCPCS: 51702; 87077; 87086; 87147; 87186 ==

== ENCOUNTER → 2023-03-02 10:16 | Outpatient (CLI) | payer OTHER, SELFPAY | PROVIDERS: PCP Internal Medicine; Visit Provider Urology | DX: N40.1 Benign prostatic hyperplasia with lower urinary tract symptoms (principal); R33.9 Retention of urine, unspecified; N31.2 Flaccid neuropathic bladder, not elsewhere classified; N32.3 Diverticulum of bladder; Z93.59 Other cystostomy status | CPT/HCPCS: 51702; 87077; 87086; 87147; 87186; 99213 ==

== ENCOUNTER → 2023-04-04 10:26 | Outpatient (CLI) | payer OTHER, SELFPAY | PROVIDERS: PCP Internal Medicine; Visit Provider Specialist | DX: N32.3 Diverticulum of bladder (principal); N40.1 Benign prostatic hyperplasia with lower urinary tract symptoms; R33.9 Retention of urine, unspecified; Z93.59 Other cystostomy status | CPT/HCPCS: 51702; 87077; 87086; 87147; 87186 ==

== ENCOUNTER → 2023-04-11 13:49 | Outpatient (CLI) | payer OTHER, SELFPAY ==
--- NOTE | 2023-04-11 13:50 | DI.ECHO.S_ITS ---
[facility] +---------+ : : [address] : : : : [address] : : : : [place], : : : : [place] [id number] : : : : Phone: [phone] + [facility] Echocardiogram Report + + :Name: PROMISE KIRKLAND Study Date: 04/11/2023 Height: 68 in : :[facility] ReadingLocation: Weight: 204 lb : : Gender: Male BSA: 2.1 m2 : :: 1955 Age: 67 yrs BP: 127/79 mmHg: :Reason For Study: Heart Murmur : :Ordering Physician: Yeny, : :Cam Performed By: Tiana Duggan : :Referring: CAM JAMES : + + Interpretation Summary Normal sinus rhythm with wide QRS complexes. Normal LV size and the increased wall thickness. There is normal wall motion and LV systolic function. Ejection fraction is 50-55%. Stage I diastolic dysfunction. No significant valvular abnormalities. Normal chamber sizes. No etiology of murmur found. No prior study available for comparison. Procedure: A two-dimensional transthoracic echocardiogram with color flow and Doppler was performed. The study quality was technically adequate. There is no prior echocardiogram noted for this patient. The patient was in normal sinus rhythm during the exam. Left Ventricle: The left ventricle is normal in size. The ejection fraction is estimated to be 50-55%. Diastolic parameters suggest a relaxation abnormality of the left ventricle, consistent with probable normal filling pressures. Right Ventricle: The right ventricle is mildly dilated. The right ventricular systolic function is normal. Atria: The left atrial size is normal. Right atrial size is normal. There is no Doppler evidence for an interatrial shunt. Mitral Valve: The mitral valve is normal. There is no mitral valve stenosis. There is no mitral regurgitation noted. Aortic Valve: The aortic valve is trileaflet. The aortic valve opens well. There is no aortic valve stenosis. No aortic regurgitation is present. Tricuspid Valve: The tricuspid valve is normal. There is no tricuspid stenosis. There is trace tricuspid regurgitation. Pulmonic Valve: The pulmonic valve leaflets are thin and pliable; valve motion is normal. There is no pulmonic valvular stenosis. There is no pulmonic valvular regurgitation. Great Vessels: The aortic root is normal size. The ascending aorta is normal in size. The pulmonary artery is normal size. The IVC is of normal diameter and collapses greater than 50% with a sniff. This suggests a low right atrial pressure of 3 mm Hg. Pericardium/ Pleura There is no pericardial effusion. There is no pleural effusion. MMode/2D Measurements & Calculations LVIDd: 4.2 cm LVOT diam: 2.3 cm LVIDs: 3.8 cm Ao root diam: 3.5 cm IVSd: 1.1 cm asc Aorta Diam: 2.9 cm LVPWd: 1.1 cm LV odonnell. diameter/BSA (cm/m^2): 2.0 LV sys. diameter/BSA (cm/m^2): 1.8 FS: 9.5 % LA A2 area: 13.3 cm2 RA long axis: 4.5 cm LA A4 area: 16.0 cm2 RA area: 16.4 cm2 LA length (vol): 4.6 cm RA vol: 50.6 ml LA vol: 39.4 ml RA : 24.6 ml/m2 LA vol index: 19.1 ml/m2 RVD1 (basal): 4.5 cm LVLs ap4: 7.0 cm LVLd ap2: 7.4 cm TAPSE_phl: 2.3 cm LVLs ap2: 6.5 cm Doppler Measurements & Calculations Ao V2 max: 114.0 cm/sec LVOT Max Giuseppe: 79.6 cm/sec Ao V2 mean: 88.5 cm/sec LV V1 max P.5 mmHg Ao V2 VTI: 22.4 cm LV V1 VTI: 16.7 cm Ao max P.0 mmHg Ao mean P.0 mmHg JAYMIE(I,D): 3.1 cm2 MV E max giuseppe: 42.8 cm/sec JAYMIE(V,D): 2.9 cm2 MV A max giuseppe: 75.4 cm/sec JAYMIE indexed to BSA (cm^2/m^2): 1.5 MV E/A: 0.57 sev ratio: 0.75 Med Peak E' Giuseppe: 5.9 cm/sec E/E' med: 7.3 Lat Peak E' Giuseppe: 14.3 cm/sec E/E' lat: 3.0 E/e' average: 5.1 MV dec time: 0.21 sec SV(LVOT): 69.4 ml AV VR_phl: 0.70 JAYMIE(VTI)/BSA_phl: 1.5 Electronically signed by: Aimee Porter M.D. on Reading Physician:04/11/2023 03:48 PM
== END ==
PROVIDERS: PCP Internal Medicine; Referring Provider Internal Medicine; Visit Provider Internal Medicine
DX: R01.1 Cardiac murmur, unspecified (principal)
CPT/HCPCS: 93306

== ENCOUNTER → 2023-04-14 13:57 | Outpatient (CLI) | payer OTHER, SELFPAY ==
[2023-04-14 14:53] LABS: BUN Creatinine Ratio 21.9 (6-22); Blood Urea Nitrogen 16 mg/dL (9-20); Calcium 9.2 mg/dL (8.4-10.2); Carbon Dioxide 28 mmol/L (22-32); Chloride 99 mmol/L (98-107); Estimated Glomerular Filt Rate > 60 mL/min (>60); Glucose 147 mg/dL (80-110); HEMOLYSIS < 15 (0-50); Potassium 3.9 mmol/L (3.4-5.1); Sodium 135 mmol/L (137-145)
[2023-04-15 08:03] LABS: x Labcorp Estim. Avg Glu (eAG) 157 mg/dL (.); x Labcorp Hemoglobin A1c 7.1 % (4.8-5.6)
== END ==
PROVIDERS: PCP Internal Medicine; Referring Provider Internal Medicine; Visit Provider Internal Medicine
DX: E11.69 Type 2 diabetes mellitus with other specified complication (principal); E78.5 Hyperlipidemia, unspecified
CPT/HCPCS: 36415; 80048; 83036

== ENCOUNTER → 2023-05-02 09:59 | Outpatient (CLI) | payer OTHER, SELFPAY | PROVIDERS: PCP Internal Medicine; Visit Provider Specialist | DX: N40.1 Benign prostatic hyperplasia with lower urinary tract symptoms (principal); R33.9 Retention of urine, unspecified; N32.3 Diverticulum of bladder; N31.2 Flaccid neuropathic bladder, not elsewhere classified; N35.912 Unspecified bulbous urethral stricture, male; N39.43 Post-void dribbling; Z93.59 Other cystostomy status | CPT/HCPCS: 51702; 87077; 87086; 87147; 87186 ==

== ENCOUNTER 2023-05-26 01:18 | Emergency (ER) | payer OTHER, SELFPAY ==
[2023-05-26 01:30] VITALS: BP 148/73; PULSE 89; RESP 16; TEMP 37.2; O2SAT 95; BMI 29.5
--- NOTE | 2023-05-26 02:06 | PC.NURSE ---
Pt with suprapubic catheter not draining.
--- NOTE | 2023-05-26 02:35 | ED_ITS ---
HPI - Male Genitourinary General Chief complaint: Urogenital-Male Stated complaint: Catherter is blocked Time Seen by Provider: 05/26/23 01:57 Source: patient Mode of arrival: Ambulatory History of Present Illness HPI Narrative: Patient here for concern of malfunctioning Herring catheter/suprapubic catheter. Patient is scheduled next Monday to have it changed out. Patient noticed yesterday morning, morning his overnight catheter bag was only have full. By 9:00 p.m. tonight he noticed there was very little output. Patient has history of neurogenic bladder secondary to urethral stricture 2 years ago. Has had suprapubic catheter for the past 2 years. He gets it changed out every 4 weeks. Denies any fever chills. He did feel some fullness tonight of the bladder. Patient had 1 L urine output after catheter was changed out. He feels much better. No fever chills or back pain or flank pain. No blood work or urinalysis indicated at this time. Related Data Home Medications Medication Instructions Recorded Confirmed albuterol sulfate 90 mcg/actuation inhalation PRN Adequate Ventilation 07/02/21 03/24/23 aerosol inhaler tiotropium bromide 2.5 inhalation DAILY 07/02/21 03/24/23 mcg/actuation mist for inhalation (Spiriva Respimat) fluticasone propionate 45 2 puff inhalation BID 01/19/22 03/24/23 mcg-salmeterol 21 mcg/actuation HFA inhaler (Advair HFA) triamcinolone acetonide 55 mcg 1 spray intranasal DAILY PRN 11/17/22 03/24/23 nasal spray aerosol (Nasacort) Adequate Ventilation #0 mL clobetasol 0.05 % topical cream 1 applic topical BID PRN skin 03/24/23 03/24/23 irritation Previous Rx's Medication Instructions Recorded atorvastatin 20 mg tablet 20 mg PO DAILY #90 tabs 11/17/22 metformin 1,000 mg tablet 1,000 mg PO DAILY #90 tabs 11/17/22 lisinopril 5 mg tablet 5 mg PO DAILY #90 tabs 03/24/23 Allergies Allergy/AdvReac Type Severity Reaction Status Date / Time Penicillins Allergy Mild Rash Verified 03/24/23 09:44 NSAIDS (Non-Steroidal Allergy Unknown Verified 03/24/23 09:44 Anti-Inflamma [NSAIDS (NON-STEROIDAL ANTI-INFLAMMA] naproxen Allergy Verified 03/24/23 09:44 Review of Systems Review of Systems Narrative: GENERAL: negative chills, fatigue, malaise, fever, sweats. HEENT: negative sinus pain, ear pain, sore throat RESPIRATORY: negative dyspnea, cough CARDIOVASCULAR: negative chest pain, palpitations GASTROINTESTINAL: negative nausea, vomiting, abdominal pain, positive suprapubic fullness : negative dysuria, frequency, hematuria, positive oliguria MUSCULOSKELETAL: negative muscle or bony pain SKIN: negative rash, skin lesions NEUROLOGIC: negative weakness, numbness ROS Unobtainable: All systems reviewed & are unremarkable except as noted in HPI and below Patient History Medical History (Updated 05/26/23 @ 02:37 by Wei Anderson MD) Actinic keratosis (~1984) Asthma (~2010) Bulbous urethral stricture Cataracts, bilateral (~2015) Chicken pox Colon polyps (~2010) COPD (chronic obstructive pulmonary disease) (~2010) Diabetic nephropathy with proteinuria Diverticula, bladder DM type 2 with diabetic dyslipidemia Dribbling following urination Dupuytren contracture (~2015) Essential hypertension Fallen arch (~1992) Flaccid bladder (~2020) Foot pain (~1992) History of colonic polyps History of melanoma Hypospadias, penile (~1952) Lower urinary tract symptoms due to benign prostatic hyperplasia Macular degeneration (~2016) Measles Mixed hyperlipidemia Mumps Obesity (BMI 30.0-34.9) Obstructive sleep apnea Plantar warts (~2010) Pre-diabetes Shoulder pain (~2005) Skin cancer (~1984) Sleep apnea Suprapubic catheter Tinnitus (~2006) Urinary retention Surgical History Anesthesia Ankle fracture, left (~2011) History of bunionectomy History of cataract removal with insertion of prosthetic lens History of colonoscopy (~2010) Melanoma (~2002) Family History Father Cancer Mother COPD (chronic obstructive pulmonary disease) Asthma Brother Cancer Grandfather Cancer Grandmother Hypertension Stroke Social History details: single, no children, retired [employer] household members: none Smoking Status: Never smoker alcohol intake: current eating out: 1-3 times/week Type(s) of exercise: walking, weight lifting, advised to exercise at least 150 min/week (moderate intensity aerobic) and advised to perform resistance training at least 2x/week Smoking Status: Never smoker alcohol intake frequency: holidays/special occasions only Substance Use Type: does not use Exam Narrative Exam Narrative: GENERAL: in no distress, not toxic not dyspneic HEAD: Normocephalic. EYES: Pupils equal round ENT: Mucous membranes moist. NECK: Trachea midline. GASTROINTESTINAL: Abdomen soft, non-tender supra pubic catheter in place. Nontender abdomen and suprapubic region. No peritoneal signs. Bowel sounds are present. NEURO: AOx4. SKIN: Warm and dry PSYCH: Not anxious, is cooperative Initial Vital Signs Initial Vital Signs: Vital Signs Temperature 98.9 F 05/26/23 01:30 Pulse Rate 89 05/26/23 01:30 Respiratory Rate 16 05/26/23 01:30 Blood Pressure 148/73 H 05/26/23 01:30 Pulse Oximetry 95 05/26/23 01:30 Oxygen Delivery Method Room Air 05/26/23 01:30 Course Orders Ordered: Discontinued Medications Lidocaine HCl (Lidocaine 2% (Glydo) 6 Ml Gel) 6 ml TOP NOW ONE Stop: 05/26/23 01:39 Vital Signs Vital signs: Vital Signs - 8 hr 05/26/23 01:30 05/26/23 02:43 Temperature 98.9 F Pulse Rate 89 82 Respiratory Rate 16 16 Blood Pressure 148/73 H 107/68 Pulse Oximetry 95 98 Oxygen Delivery Method Room Air Room Air MDM - Male Genitourinary MDM Narrative Medical decision making narrative: Patient here for concern of malfunctioning Herring catheter/suprapubic catheter. Patient is scheduled next Monday to have it changed out. Patient noticed yesterday morning, morning his overnight catheter bag was only have full. By 9:00 p.m. tonight he noticed there was very little output. Patient has history of neurogenic bladder secondary to urethral stricture 2 years ago. Has had suprapubic catheter for the past 2 years. He gets it changed out every 4 weeks. Denies any fever chills. He did feel some fullness tonight of the bladder. Patient had 1 L urine output after catheter was changed out. He feels much better. No fever chills or back pain or flank pain. No blood work or urinalysis indicated at this time. After history and exam Herring catheter exchange/replacement MDM CC: Herring catheter failure Complicating co-morbidities: Neurogenic bladder Data collected from: Patient Medical records reviewed: No recent visit for this complaint Differential considered: Includes but not limited to blocked Herring catheter Exam documented above, pertinent findings include: Significant improvement after 1 L urine with new Herring catheter Lab Test results independently reviewed as above. Pertinent findings: None indicated this time Imaging studies independently reviewed: None indicated at this time Re-evaluations: Patient feels much better after Herring catheter changed out. Return precautions reviewed. Nontoxic at discharge. Patient agrees no laboratory studies indicated at this time. No fever no back pain no vomiting. Discussion: Appropriate for discharge home. Exam is reassuring. No laboratory studies or imaging indicated at this time. Patient had a failed Herring catheter causing urinary retention. Return precautions reviewed with him. He desires discharge home. Diagnosis: Herring catheter failure Discharge Plan Departure Patient Disposition: Home Clinical Impression: Malfunction of Herring catheter Instructions: How to Care for Your Herring Catheter -- Male Activity Restrictions/Additional Instructions: Inform your urology office that you have already had your catheter changed tonight. Please follow up as scheduled. Continue home medications. Return if worse if any questions or concerns. Prescriptions: No Action triamcinolone acetonide [Nasacort] 55 mcg aerosol,spray 1 spray Intranasal DAILY PRN (Reason: Adequate Ventilation) Qty: 0 Rx Instructions: Only send to [facility] clobetasol 0.05 % cream 1 applic topical BID PRN (Reason: skin irritation) lisinopril 5 mg tablet 5 mg PO DAILY Qty: 90 3RF atorvastatin 20 mg tablet 20 mg PO DAILY Qty: 90 3RF metformin 1,000 mg tablet 1,000 mg PO DAILY Qty: 90 3RF Spiriva Respimat 2.5 mcg/actuation mist inhalation DAILY albuterol sulfate 90 mcg/actuation HFA aerosol inhaler inhalation PRN (Reason: Adequate Ventilation) Advair HFA 45-21 mcg/actuation HFA aerosol inhaler 2 puff inhalation BID Referrals: Cam Saini MD [Primary Care Provider] - Stand Alone Forms: Patient Portal/API
[2023-05-26 02:43] VITALS: BP 107/68; PULSE 82; RESP 16; O2SAT 98
== END 2023-05-26 02:44 | disposition home or self-care (01) ==
PROVIDERS: Emergency Provider Emergency Medicine; PCP Internal Medicine
DX: T83.011A Breakdown (mechanical) of indwelling urethral catheter, initial encounter (principal)
CPT/HCPCS: 51798; 99283

== ENCOUNTER → 2023-06-21 10:27 | Outpatient (CLI) | payer OTHER, SELFPAY | PROVIDERS: PCP Internal Medicine; Visit Provider Urology | DX: N40.1 Benign prostatic hyperplasia with lower urinary tract symptoms (principal); R33.9 Retention of urine, unspecified; N32.3 Diverticulum of bladder; Z93.59 Other cystostomy status | CPT/HCPCS: 51702; 87077; 87086; 87147; 87186 ==

== ENCOUNTER → 2023-07-19 10:14 | Outpatient (CLI) | payer OTHER, SELFPAY | PROVIDERS: PCP Internal Medicine; Visit Provider Urology | DX: N32.3 Diverticulum of bladder (principal); N40.1 Benign prostatic hyperplasia with lower urinary tract symptoms; R33.9 Retention of urine, unspecified; Z93.59 Other cystostomy status | CPT/HCPCS: 51702; 87077; 87086; 87147; 87186 ==

== ENCOUNTER → 2023-08-14 07:41 | Outpatient (CLI) | payer OTHER, SELFPAY ==
[2023-08-14 08:31] LABS: Hemoglobin A1C% w Est Avg Glu 6.7 % (4.0-6.0)
[2023-08-14 08:47] LABS: BUN Creatinine Ratio 20.8 (6-22); Blood Urea Nitrogen 16 mg/dL (9-20); Calcium 9.5 mg/dL (8.4-10.2); Carbon Dioxide 27 mmol/L (22-32); Chloride 102 mmol/L (98-107); Estimated Glomerular Filt Rate > 60 mL/min (>60); Glucose 135 mg/dL (80-110); HEMOLYSIS < 15 (0-50); Potassium 4.2 mmol/L (3.4-5.1); Sodium 135 mmol/L (137-145)
== END ==
PROVIDERS: PCP Internal Medicine; Referring Provider Internal Medicine; Visit Provider Internal Medicine
DX: E11.69 Type 2 diabetes mellitus with other specified complication (principal); E78.5 Hyperlipidemia, unspecified
CPT/HCPCS: 36415; 80048; 83036

== ENCOUNTER → 2023-08-16 10:05 | Outpatient (CLI) | payer OTHER, SELFPAY | PROVIDERS: PCP Internal Medicine; Visit Provider Specialist | DX: N31.2 Flaccid neuropathic bladder, not elsewhere classified (principal); N40.1 Benign prostatic hyperplasia with lower urinary tract symptoms; R33.9 Retention of urine, unspecified | CPT/HCPCS: 51702; 87086 ==

== ENCOUNTER 2023-09-07 04:54 | Emergency (ER) | payer OTHER, SELFPAY ==
[2023-09-07 05:23] VITALS: PULSE 94; O2SAT 96
[2023-09-07 05:25] VITALS: BP 134/86; PULSE 96; RESP 20; TEMP 36.6; O2SAT 96; BMI 29.6
[2023-09-07 05:30] VITALS: BP 130/66; PULSE 92; O2SAT 95
--- NOTE | 2023-09-07 05:42 | ED.GENADULT ---
HPI - General Adult General Chief complaint: Urogenital-Male Stated complaint: blocked catheter Time Seen by Provider: 09/07/23 05:32 Source: patient Mode of arrival: Ambulatory History of Present Illness HPI narrative: Patient is a 68-year-old male. Has a suprapubic catheter in place secondary to neurogenic bladder. The suprapubic catheter was placed several years ago however the catheter that is currently in place has been there for 3 weeks. He states he woke up this morning feeling pressure in his bladder. He also states that he is not drained as much urine is would expected overnight. He is not having abdominal pain. He has had a obstructed catheter in the past. Related Data Home Medications Medication Instructions Recorded Confirmed albuterol sulfate 90 mcg/actuation inhalation PRN Adequate Ventilation 07/02/21 08/30/23 aerosol inhaler tiotropium bromide 2.5 inhalation DAILY 07/02/21 08/30/23 mcg/actuation mist for inhalation (Spiriva Respimat) fluticasone propionate 45 2 puff inhalation BID 01/19/22 08/30/23 mcg-salmeterol 21 mcg/actuation HFA inhaler (Advair HFA) triamcinolone acetonide 55 mcg 1 spray intranasal DAILY PRN 11/17/22 08/30/23 nasal spray aerosol (Nasacort) Adequate Ventilation #0 mL clobetasol 0.05 % topical cream 1 applic topical BID PRN skin 03/24/23 08/30/23 irritation Previous Rx's Medication Instructions Recorded atorvastatin 20 mg tablet 20 mg PO DAILY #90 tabs 11/17/22 metformin 1,000 mg tablet 1,000 mg PO DAILY #90 tabs 11/17/22 lisinopril 5 mg tablet 5 mg PO DAILY #90 tabs 03/24/23 peg 3350-electrolytes 236 240 ml PO Q10M #4,000 mL 08/22/23 gram-22.74 gram-6.74 gram-5.86 gram solution (Golytely) Allergies Allergy/AdvReac Type Severity Reaction Status Date / Time Penicillins Allergy Mild Rash Verified 08/16/23 10:05 NSAIDS (Non-Steroidal Allergy Unknown Verified 08/16/23 10:05 Anti-Inflamma [NSAIDS (NON-STEROIDAL ANTI-INFLAMMA] naproxen Allergy Verified 08/16/23 10:05 Review of Systems Constitutional Constitutional: Reports system reviewed and no additional complaints, except as documented Gastrointestinal Gastrointestinal: Reports system reviewed and no additional complaints, except as documented Genitourinary Genitourinary: Reports system reviewed and no additional complaints, except as documented Patient History Medical History Diabetic nephropathy with proteinuria Obesity (BMI 30.0-34.9) History of colonic polyps History of melanoma Obstructive sleep apnea Mixed hyperlipidemia Essential hypertension DM type 2 with diabetic dyslipidemia Suprapubic catheter Plantar warts (~2010) Actinic keratosis (~1984) Sleep apnea COPD (chronic obstructive pulmonary disease) (~2010) Asthma (~2010) Fallen arch (~1992) Dupuytren contracture (~2015) Shoulder pain (~2005) Foot pain (~1992) Mumps Measles Chicken pox Macular degeneration (~2016) Tinnitus (~2006) Cataracts, bilateral (~2015) Colon polyps (~2010) Skin cancer (~1984) Diverticula, bladder Flaccid bladder (~2020) Bulbous urethral stricture Dribbling following urination Hypospadias, penile (~1952) Lower urinary tract symptoms due to benign prostatic hyperplasia Urinary retention Pre-diabetes Surgical History Anesthesia Ankle fracture, left (~2011) History of bunionectomy History of cataract removal with insertion of prosthetic lens History of colonoscopy (~2010) Melanoma (~2002) Family History Father Cancer Mother COPD (chronic obstructive pulmonary disease) Asthma Brother Cancer Grandfather Cancer Grandmother Hypertension Stroke Social History details: single, no children, retired [employer] household members: none Smoking Status: Never smoker alcohol intake: current eating out: 1-3 times/week Type(s) of exercise: walking, weight lifting, advised to exercise at least 150 min/week (moderate intensity aerobic) and advised to perform resistance training at least 2x/week Smoking Status: Never smoker alcohol intake frequency: holidays/special occasions only Substance Use Type: does not use Exam Initial Vital Signs Initial Vital Signs: Vital Signs Pulse Rate 94 H 09/07/23 05:23 Pulse Oximetry 96 09/07/23 05:23 Const General: cooperative, comfortable and No ill appearing GI Inspection: normal to inspection and non-distended Palpation: soft Other: Suprapubic catheter in place. Skin Other: No indication of infection Neuro General: patient alert, patient awake and moves all extremities Extrem General: capillary refill normal Course Vital Signs Vital signs: Vital Signs - 8 hr 09/07/23 05:23 09/07/23 05:25 09/07/23 05:30 Temperature 97.9 F Pulse Rate 94 H 96 H Respiratory Rate 20 Blood Pressure 134/86 130/66 Pulse Oximetry 96 96 Oxygen Delivery Method Room Air 09/07/23 05:30 09/07/23 06:00 09/07/23 06:00 Temperature Pulse Rate 92 H 93 H Respiratory Rate Blood Pressure 120/99 H Pulse Oximetry 95 94 Oxygen Delivery Method Medical Decision Making MDM Narrative Medical decision making narrative: Attempted to flush the catheter but this was unsuccessful. A new catheter was placed and it did drain yellow urine. Will discharge patient home with instructions to contact his urologist office for follow-up. Discharge Plan Departure Patient Disposition: Home Clinical Impression: Obstruction of suprapubic catheter Instructions: How to Care for Your Herring Catheter -- Male Activity Restrictions/Additional Instructions: Would contact your urologist office when they open today to let them know that we did put a new catheter in today. Follow all of the instructions given to you by your urologist. Return to the emergency department for new or worsening symptoms. Prescriptions: No Action triamcinolone acetonide [Nasacort] 55 mcg aerosol,spray 1 spray Intranasal DAILY PRN (Reason: Adequate Ventilation) Qty: 0 Rx Instructions: Only send to [facility] peg 3350-electrolytes [Golytely] 236-22.74-6.74 -5.86 gram recon soln 240 ml PO Q10M Qty: 4000 0RF Rx Instructions: take as directed by Physician clobetasol 0.05 % cream 1 applic topical BID PRN (Reason: skin irritation) lisinopril 5 mg tablet 5 mg PO DAILY Qty: 90 3RF atorvastatin 20 mg tablet 20 mg PO DAILY Qty: 90 3RF metformin 1,000 mg tablet 1,000 mg PO DAILY Qty: 90 3RF Spiriva Respimat 2.5 mcg/actuation mist inhalation DAILY albuterol sulfate 90 mcg/actuation HFA aerosol inhaler inhalation PRN (Reason: Adequate Ventilation) Advair HFA 45-21 mcg/actuation HFA aerosol inhaler 2 puff inhalation BID Referrals: Cam Saini MD [Primary Care Provider] - Stand Alone Forms: Patient Portal/API
[2023-09-07 06:00] VITALS: BP 120/99; PULSE 93; O2SAT 94
--- NOTE | 2023-09-07 06:17 | PC.NURSE ---
0600: This nurse attempted to flush suprapubic catheter with 60ml normal saline. Unable to flush, Dr. Feldman notified.
--- NOTE | 2023-09-07 06:20 | PC.NURSE ---
removed patient's clogged suprapubic catheter and placed a new catheter in 24french with a 10ml saline balloon. Patient tolerated well, urine flowing into new drainage bag.
== END 2023-09-07 06:32 | disposition home or self-care (01) ==
PROVIDERS: Emergency Provider Emergency Medicine; PCP Internal Medicine
DX: T83.090A Other mechanical complication of cystostomy catheter, initial encounter (principal)
CPT/HCPCS: 51700; 51798; 99283; 99284

== ENCOUNTER 2023-10-10 09:11 | Emergency (ER) | payer OTHER, SELFPAY ==
[2023-10-10 09:12] VITALS: BP 142/69; PULSE 91; RESP 15; TEMP 36.9; O2SAT 96; BMI 29.6
--- NOTE | 2023-10-10 09:23 | ED.MALEGU ---
HPI - Male Genitourinary General Chief complaint: Urogenital-Male Stated complaint: blocked catherter Time Seen by Provider: 10/10/23 09:13 Source: patient Mode of arrival: Ambulatory History of Present Illness HPI Narrative: 68-year-old male with history of neurogenic bladder with suprapubic catheter in place presents by private vehicle from home for blocked catheter. Patient went to sleep in his usual state of health and noticed that overnight he did not have as much urine in his Herring bag as he normally does. He initially attempted to go to his urologist's office, however the nurse who was available to replace the catheter was not available and so he was referred to the emergency department. Reports a sensation of fullness, otherwise denies back pain, flank pain, fever, chills, other complaints at this time. He does note that when he was draining the urine this morning it did seem to be cloudy or than usual and is concerned that there may be an underlying infection as well. Patient notes that he is had issues with his catheter over the last several months. His last blockage was 1 month ago. His last Herring exchange was 1 month ago when his previous catheter was blocked. Related Data Home Medications Medication Instructions Recorded Confirmed albuterol sulfate 90 mcg/actuation inhalation PRN Adequate Ventilation 07/02/21 08/30/23 aerosol inhaler tiotropium bromide 2.5 inhalation DAILY 07/02/21 08/30/23 mcg/actuation mist for inhalation (Spiriva Respimat) fluticasone propionate 45 2 puff inhalation BID 01/19/22 08/30/23 mcg-salmeterol 21 mcg/actuation HFA inhaler (Advair HFA) triamcinolone acetonide 55 mcg 1 spray intranasal DAILY PRN 11/17/22 08/30/23 nasal spray aerosol (Nasacort) Adequate Ventilation #0 mL clobetasol 0.05 % topical cream 1 applic topical BID PRN skin 03/24/23 08/30/23 irritation Previous Rx's Medication Instructions Recorded atorvastatin 20 mg tablet 20 mg PO DAILY #90 tabs 11/17/22 metformin 1,000 mg tablet 1,000 mg PO DAILY #90 tabs 11/17/22 lisinopril 5 mg tablet 5 mg PO DAILY #90 tabs 03/24/23 peg 3350-electrolytes 236 240 ml PO Q10M #4,000 mL 08/22/23 gram-22.74 gram-6.74 gram-5.86 gram solution (Golytely) sulfamethoxazole 800 1 tab PO Q12H #20 tabs 10/10/23 mg-trimethoprim 160 mg tablet Allergies Allergy/AdvReac Type Severity Reaction Status Date / Time Penicillins Allergy Mild Rash Verified 10/10/23 09:16 NSAIDS (Non-Steroidal Allergy Unknown Verified 10/10/23 09:16 Anti-Inflamma [NSAIDS (NON-STEROIDAL ANTI-INFLAMMA] naproxen Allergy Verified 10/10/23 09:16 Review of Systems Review of Systems Narrative: Negative except as noted above Patient History Medical History Diabetic nephropathy with proteinuria Obesity (BMI 30.0-34.9) History of colonic polyps History of melanoma Obstructive sleep apnea Mixed hyperlipidemia Essential hypertension DM type 2 with diabetic dyslipidemia Suprapubic catheter Plantar warts (~2010) Actinic keratosis (~1984) Sleep apnea COPD (chronic obstructive pulmonary disease) (~2010) Asthma (~2010) Fallen arch (~1992) Dupuytren contracture (~2015) Shoulder pain (~2005) Foot pain (~1992) Mumps Measles Chicken pox Macular degeneration (~2016) Tinnitus (~2006) Cataracts, bilateral (~2015) Colon polyps (~2010) Skin cancer (~1984) Diverticula, bladder Flaccid bladder (~2020) Bulbous urethral stricture Dribbling following urination Hypospadias, penile (~1952) Lower urinary tract symptoms due to benign prostatic hyperplasia Urinary retention Pre-diabetes Surgical History Anesthesia Ankle fracture, left (~2011) History of bunionectomy History of cataract removal with insertion of prosthetic lens History of colonoscopy (~2010) Melanoma (~2002) Family History Father Cancer Mother COPD (chronic obstructive pulmonary disease) Asthma Brother Cancer Grandfather Cancer Grandmother Hypertension Stroke Social History details: single, no children, retired [email or web address] household members: none Smoking Status: Never smoker alcohol intake: current eating out: 1-3 times/week Type(s) of exercise: walking, weight lifting, advised to exercise at least 150 min/week (moderate intensity aerobic) and advised to perform resistance training at least 2x/week Smoking Status: Never smoker alcohol intake frequency: holidays/special occasions only Substance Use Type: does not use Exam Initial Vital Signs Initial Vital Signs: Vital Signs Temperature 98.4 F 10/10/23 09:12 Pulse Rate 91 H 10/10/23 09:12 Respiratory Rate 15 10/10/23 09:12 Blood Pressure 142/69 H 10/10/23 09:12 Pulse Oximetry 96 10/10/23 09:12 Oxygen Delivery Method Room Air 10/10/23 09:12 Const: Awake, alert, no acute distress, nontoxic appearing Cardiac: regular rate, regular rhythm RESP: unlabored, clear bilaterally, no wheezing GI: Atraumatic, soft, nontender, suprapubic catheter in place MSK: Atraumatic, full range of motion, pulses equal Skin: Warm, Dry, intact, no rashes Neuro: AO x3, CN II-XII grossly intact, moves all extremities Psych: affect normal, mood normal, not suicidal, not homicidal Course Course Course Narrative: Patient presenting for blocked Herring catheter. Abdomen is soft. Twenty-four Prydeinig suprapubic catheter was removed, 22 Prydeinig catheter replaced by myself in sterile fashion per patient request (specifically requested 22 Prydeinig placement). Patient has appointment with his urologist later this week, he requested to keep the previous catheter to show his urologist. Urinalysis with nitrites and leukocyte esterase. Compared to previous micro, previous urine was sensitive to Bactrim. Bactrim sent to pharmacy. ED return precautions discussed at bedside. Patient expressed understanding of the plan and is in agreement at this time. All questions answered at the time of discharge. Orders Ordered: ED Orders 10/10/23 09:45 UA Complete [Urinalysis and Microscopic] Stat Urine Culture Stat Vital Signs Vital signs: Vital Signs - 8 hr 10/10/23 09:12 Temperature 98.4 F Pulse Rate 91 H Respiratory Rate 15 Blood Pressure 142/69 H Pulse Oximetry 96 Oxygen Delivery Method Room Air MDM - Male Genitourinary Differential Diagnosis Differential diagnosis: Likely urinary tract infection, urethritis and epididymitis Lab Data Labs: Lab Results 10/10/23 Range/Units 09:45 Urine Color Yellow Urine Appearance Sl cloudy Urine pH 7.0 (4.5-8.0) Ur Specific [place] 1.010 (1.000-1.035) Urine Protein Negative (Negative) Urine Glucose (UA) Negative (Negative) g/dL Urine Ketones Negative (NEGATIVE) Urine Occult Blood 3+ H (Negative) Urine Nitrate Positive H (Negative) Urine Bilirubin Negative (NEGATIVE) Urine Urobilinogen 0.2 (0.2) E.U./dL Ur Leukocyte Esterase 3+ H (NEGATIVE) Urine RBC 0-1/hpf (0-5/HPF) Urine WBC 5-10/hpf H (0-5/HPF) Ur Squamous Epith Cells 0-1 /hpf (0-5/HPF) Urine Bacteria Moderate (10-30) H (None) Ur Culture Indicated? Specimen cultured Discharge Plan Departure Patient Disposition: Home Clinical Impression: Obstructed Herring catheter Qualifiers: Encounter type: initial encounter Qualified Code(s): T83.091A - Other mechanical complication of indwelling urethral catheter, initial encounter Urinary tract infection Qualifiers: Urinary tract infection type: catheter-associated UTI Indwelling urinary catheter type: indwelling urethral catheter Encounter type: initial encounter Qualified Code(s): T83.511A - Infection and inflammatory reaction due to indwelling urethral catheter, initial encounter; N39.0 - Urinary tract infection, site not specified Instructions: DI for Urinary Tract Infection (UTI) Prescriptions: New sulfamethoxazole-trimethoprim 800-160 mg tablet 1 tab PO Q12H Qty: 20 0RF No Action triamcinolone acetonide [Nasacort] 55 mcg aerosol,spray 1 spray Intranasal DAILY PRN (Reason: Adequate Ventilation) Qty: 0 Rx Instructions: Only send to [facility] peg 3350-electrolytes [Golytely] 236-22.74-6.74 -5.86 gram recon soln 240 ml PO Q10M Qty: 4000 0RF Rx Instructions: take as directed by Physician clobetasol 0.05 % cream 1 applic topical BID PRN (Reason: skin irritation) lisinopril 5 mg tablet 5 mg PO DAILY Qty: 90 3RF atorvastatin 20 mg tablet 20 mg PO DAILY Qty: 90 3RF metformin 1,000 mg tablet 1,000 mg PO DAILY Qty: 90 3RF Spiriva Respimat 2.5 mcg/actuation mist inhalation DAILY albuterol sulfate 90 mcg/actuation HFA aerosol inhaler inhalation PRN (Reason: Adequate Ventilation) Advair HFA 45-21 mcg/actuation HFA aerosol inhaler 2 puff inhalation BID Referrals: Cam Siani MD [Primary Care Provider] - Stand Alone Forms: Patient Portal/API
[2023-10-10 10:05] LABS: Bilirubin Urine UA NEGATIVE (NEGATIVE); Color Urine UA YELLOW; Glucose Urine UA NEGATIVE (Negative); Ketones Urine UA NEGATIVE (NEGATIVE); Leukocyte Esterase Urine UA 3+ (NEGATIVE); Nitrite Urine UA POSITIVE (Negative); Occult Blood Urine UA 3+ (Negative); Protein Urine UA NEGATIVE (Negative); Urobilinogen Urine UA 0.2 E.U./dL (0.2)
[2023-10-10 10:09] LABS: Appearance Urine UA SL CLOUDY
[2023-10-10 10:15] LABS: RBC Urine 0-1/HPF (0-5/HPF); WBC Urine 5-10/HPF (0-5/HPF)
[2023-10-10 10:16] LABS: Bacteria Urine Moderate (10-30); Culture Indicated Urine Specimen Cultured; Squamous Epithelial Cell Urine 0-1 /HPF (0-5/HPF)
== END 2023-10-10 10:29 | disposition home or self-care (01) ==
PROVIDERS: Emergency Provider Emergency Medicine; PCP Internal Medicine
DX: R33.9 Retention of urine, unspecified (principal); N39.0 Urinary tract infection, site not specified; T83.091A Other mechanical complication of indwelling urethral catheter, initial encounter; T83.511A Infection and inflammatory reaction due to indwelling urethral catheter, initial encounter
CPT/HCPCS: 51702; 81001; 87077; 87086; 87147; 87186; 99283

== ENCOUNTER → 2023-11-07 10:12 | Outpatient (CLI) | payer OTHER, SELFPAY | PROVIDERS: PCP Internal Medicine; Visit Provider Specialist | DX: N39.43 Post-void dribbling (principal); N40.1 Benign prostatic hyperplasia with lower urinary tract symptoms; R33.9 Retention of urine, unspecified; N32.3 Diverticulum of bladder; N31.2 Flaccid neuropathic bladder, not elsewhere classified; Z93.59 Other cystostomy status | CPT/HCPCS: 51702; 87077; 87086; 87147; 87186 ==

== ENCOUNTER → 2023-11-16 10:44 | Outpatient (CLI) | payer OTHER, SELFPAY ==
[2023-11-16 12:15] LABS: Blood Urea Nitrogen 15 mg/dL (9-20); Calcium 9.1 mg/dL (8.4-10.2); Carbon Dioxide 25 mmol/L (22-32); Chloride 100 mmol/L (98-107); Estimated Glomerular Filt Rate > 60 mL/min (>60); Glucose 113 mg/dL (80-110); HEMOLYSIS < 15 (0-50); Potassium 3.8 mmol/L (3.4-5.1); Sodium 134 mmol/L (137-145)
[2023-11-16 13:06] LABS: Hemoglobin A1C% w Est Avg Glu 6.9 % (4.0-6.0)
== END ==
LOC: LAB 10:45
PROVIDERS: PCP Internal Medicine; Referring Provider Internal Medicine; Visit Provider Internal Medicine
DX: E11.21 Type 2 diabetes mellitus with diabetic nephropathy (principal); E11.69 Type 2 diabetes mellitus with other specified complication; E78.5 Hyperlipidemia, unspecified; I10 Essential (primary) hypertension
CPT/HCPCS: 36415; 80048; 83036

== ENCOUNTER → 2023-11-16 12:55 | Outpatient (CLI) | payer OTHER, SELFPAY ==
[2023-11-16 17:14] LABS: Creatinine Urine Random 35.6 mg/dL
[2023-11-16 17:20] LABS: Microalbumi Creatinin Ratio Ur 84.2 ug/mg CR (<30)
== END ==
PROVIDERS: PCP Internal Medicine; Referring Provider Internal Medicine; Visit Provider Internal Medicine
DX: E11.21 Type 2 diabetes mellitus with diabetic nephropathy (principal); E11.69 Type 2 diabetes mellitus with other specified complication; E78.5 Hyperlipidemia, unspecified; I10 Essential (primary) hypertension
CPT/HCPCS: 36415; 80048; 82043; 82570; 83036

== ENCOUNTER → 2023-12-05 10:38 | Outpatient (CLI) | payer OTHER, SELFPAY | PROVIDERS: PCP Internal Medicine; Visit Provider Urology | DX: Z93.59 Other cystostomy status (principal); N39.43 Post-void dribbling; N40.1 Benign prostatic hyperplasia with lower urinary tract symptoms; R33.9 Retention of urine, unspecified; N32.3 Diverticulum of bladder; N31.2 Flaccid neuropathic bladder, not elsewhere classified | CPT/HCPCS: 51702; 87077; 87086; 87147; 87186 ==

== ENCOUNTER → 2023-12-08 09:29 | Outpatient (CLI) | payer OTHER, SELFPAY ==
--- NOTE | 2023-12-08 09:30 | DI.CT.S_ITS ---
PROCEDURE: CT KIDNEY URETER BLADDER (KUB) INDICATIONS: Flacid neurogenic bladder TECHNIQUE: Axial sections were acquired from the lung bases to the pubic symphysis. Coronal and sagittal reformats were performed. For radiation dose reduction, the following was used: automated exposure control, adjustment of mA and/or kV according to patient size. COMPARISON: None. FINDINGS: Image quality: Diagnostic. Lower Chest: No significant findings. URINARY: Right Kidney: No stones or hydronephrosis. Right Ureter: No hydroureter. Left Kidney: No stones or hydronephrosis. Left Ureter: No hydroureter. Bladder: There is a suprapubic Herring catheter which completely decompresses the bladder. ABDOMEN: Liver: No contour-deforming solid mass. Gallbladder: No radiopaque gallstones or wall thickening. Biliary ducts: No biliary dilation. Pancreas: No ductal dilation. Spleen: Size is within normal limits. Adrenal Glands: No adrenal nodules. Stomach and Bowel: Normal colonic caliber, without significant wall thickening. Moderate sigmoid diverticulosis without evidence of diverticulitis. Peritoneum: No abnormal intraperitoneal fluid. No free air. Ventral Wall: No hernia. Abdominal Nodes: No enlarged retroperitoneal or mesenteric lymph nodes. Vessels: Aorta and inferior vena cava are normal in size. PELVIS: Pelvic Organs: Unremarkable. Pelvic Nodes: Unremarkable. Miscellaneous: A left inguinal hernia contains a portion of the bladder. There is a fat containing right inguinal hernia. There is a fat containing ventral hernia. Bones: Unremarkable. IMPRESSION: 1. Suprapubic Herring catheter in place, with decompressed bladder. 2. There is a left inguinal hernia that contains a portion of the bladder. 3. Fat containing right inguinal hernia and fat containing umbilical hernia. 4. No renal stones, ureteral stones, or hydronephrosis. 5. Moderate diverticulosis. Dictated by: Ramiro Roldan M.D. on 12/08/2023 at 12:52 Approved by: Ramiro Roldan M.D. on 12/08/2023 at 12:57
== END ==
LOC: CT 09:30
PROVIDERS: PCP Internal Medicine; Referring Provider Specialist; Visit Provider Specialist
DX: N31.2 Flaccid neuropathic bladder, not elsewhere classified (principal); K40.20 Bilateral inguinal hernia, without obstruction or gangrene, not specified as recurrent; K57.30 Diverticulosis of large intestine without perforation or abscess without bleeding
CPT/HCPCS: 74176

== ENCOUNTER → 2024-01-02 10:09 | Outpatient (CLI) | payer OTHER, SELFPAY | PROVIDERS: PCP Internal Medicine; Visit Provider Urology | DX: Z93.59 Other cystostomy status (principal); N40.1 Benign prostatic hyperplasia with lower urinary tract symptoms; R33.9 Retention of urine, unspecified | CPT/HCPCS: 51702; 87077; 87086; 87147; 87186 ==

== ENCOUNTER → 2024-01-30 10:22 | Outpatient (CLI) | payer OTHER, SELFPAY | PROVIDERS: PCP Internal Medicine; Visit Provider Urology | DX: N40.1 Benign prostatic hyperplasia with lower urinary tract symptoms (principal); R33.9 Retention of urine, unspecified; N32.3 Diverticulum of bladder; N31.2 Flaccid neuropathic bladder, not elsewhere classified; N39.43 Post-void dribbling; Z93.59 Other cystostomy status | CPT/HCPCS: 51702; 87077; 87086; 87147; 87186 ==

== ENCOUNTER → 2024-02-14 13:32 | Outpatient (CLI) | payer OTHER, SELFPAY | PROVIDERS: PCP Internal Medicine; Referring Provider Internal Medicine; Visit Provider Internal Medicine | DX: J45.909 Unspecified asthma, uncomplicated (principal); J98.8 Other specified respiratory disorders; J44.9 Chronic obstructive pulmonary disease, unspecified | CPT/HCPCS: 94060 ==

== ENCOUNTER → 2024-02-28 10:38 | Outpatient (CLI) | payer OTHER, SELFPAY | PROVIDERS: PCP Internal Medicine; Visit Provider Urology | DX: Z93.59 Other cystostomy status (principal); N40.1 Benign prostatic hyperplasia with lower urinary tract symptoms; R33.9 Retention of urine, unspecified | CPT/HCPCS: 87077; 87086; 87147; 87186 ==

== ENCOUNTER 2024-03-19 09:16 | Day surgery (SDC) | payer OTHER, SELFPAY ==
[2024-03-12 11:51] VITALS: BMI 29.6
[2024-03-19 09:41] VITALS: BMI 29.5
[2024-03-19 09:45] VITALS: BP 114/74; PULSE 93; RESP 17; TEMP 36.2; O2SAT 94
[2024-03-19] MEDS: LACTATED RINGERS 1,000 ML 21 ML IV (09:54)
--- NOTE | 2024-03-19 11:01 | PM.PREOP ---
Pre-operative Note COVID-19 COVID-19 status: Not tested Interval Note History & Physical reviewed/Exam performed by Physician: Yes Changes to H&P: No
[2024-03-19] MEDS: CIPROFLOXACIN 400 MG/200 ML PIGGYBACK 200 MG IV (11:33)
--- NOTE | 2024-03-19 11:43 | SUR.OPER ---
Lithotomy on padded OR bed, head on pillow, arms secured on padded arm boards at <90 degrees abduction. Legs secured in padded yellow fins stirrups.
[2024-03-19 12:01] VITALS: BP 103/63; PULSE 76; RESP 19; TEMP 36.4; O2SAT 97
[2024-03-19 12:06] VITALS: BP 100/61; PULSE 76; RESP 13; TEMP 36.3; O2SAT 98
--- NOTE | 2024-03-19 12:07 | PM.OP.1 ---
Procedure & Clinicians Procedure: Mechanical cystolitholapaxy with evacuation of stone fragments and exchange of SP tube Same procedure as scheduled: Yes Indications: This is 68-year-old male who has a hypotonic bladder and has had this managed by indwelling suprapubic tube. He was in for surveillance cystoscopy and noted to have at least 2 calculi in his bladder approaching 1-1/2 cm and 2 cm. He presents this time for cystolitholapaxy mechanical with possible laser cystolitholapaxy. Surgeon: Wei Miles Click Yes if Unassisted: Yes Anesthesia Type: General Operative Notes Findings: 22 Nepalese SP tube is in good position and the insertion site is without sign of infection inflammation or proud flesh. Patient has hypospadias with just subcoronal hypospadias. The urethra is normal along its length. To the proximal verbal urethra where there had been a stricture previously. This was widely patent. Within the bladder there were 2 stones as described previously 1-1/2 and the other 2 cm. There were some smaller miliary stones few in number. Ureteral orifices in normal position with clear efflux. The SP tube was in good position without encrustation and the mucosa of the bladder was otherwise normal. At the end of the procedure all stone fragments had been evacuated. And the [address] catheter was easily exchanged leaving 10 cc in the balloon and the catheter to gravity drainage in the patient's leg bag. No other abnormalities were noted. Closure Type: not applicable Specimen(s): none sent (Bladder calculi for compositional analysis) Prosthetic devices, grafts, tissues, transplants, or devices: [address] tube with 10 cc in the balloon Estimated Blood Loss (mL): 0 Blood products transfused: none Procedure in detail: Procedure in detail: After informed consent was obtained, the patient was identified brought to the operating room where he is placed in supine position on the table. Once there anesthesia was induced and maintained. Ensuring an adequate level of anesthesia the patient was transition to a lithotomy position where his SP tube was clamped, he was prepped and draped in a sterile fashion for Transurethral procedure. After prepping, draping, time-out, ensuring an adequate level of anesthesia and administration of antibiotics the 22 Nepalese cystoscope was passed through the hypospadias meatus after it was dilated to 26 Nepalese with Elizabeth sounds. The scope was then passed under direct vision into the bladder and stones identified. The mechanical lithotrite was then inserted in the stones were sequentially crushed fragments that would pass through the scope. The fragments were then washed out of the bladder until only very fine dust remained. There were no large fragments. At this point the bladder was left full and the scope was removed the balloon on the old SP tube was deflated this catheter was removed and a new 22 Nepalese catheter passed easily into the bladder the balloon filled with 10 cc of sterile water and attached to the patient's leg bag. There was drainage of the irrigant. At this point the patient was awakened having tolerated the procedure well to be transferred to the postanesthesia care unit for recovery. There were no complications Complications: none Post-operative Condition: stable Disposition: PACU Plan for aftercare: For for my office in 10-14 days for postop check.
[2024-03-19 12:12] VITALS: BP 103/64; PULSE 77; RESP 15; TEMP 36.3; O2SAT 97
[2024-03-19 12:19] VITALS: BP 109/67; PULSE 82; RESP 17; TEMP 36.3; O2SAT 96
[2024-03-19 12:28] VITALS: BP 109/67; PULSE 71; RESP 13; TEMP 36.3; O2SAT 96
== END 2024-03-19 12:42 | disposition home or self-care (01) ==
PROVIDERS: PCP Internal Medicine; Referring Provider Urology; Visit Provider Urology
PROC: 0TCB8ZZ Extirpation of Matter from Bladder, Via Natural or Artificial Opening Endoscopic (ICD-10-PCS; CPT 52318; principal; 2024-03-19 10:45)
DX: N21.0 Calculus in bladder (principal); N31.2 Flaccid neuropathic bladder, not elsewhere classified; N32.3 Diverticulum of bladder; R33.9 Retention of urine, unspecified; Z93.59 Other cystostomy status; Q54.1 Hypospadias, penile
CPT/HCPCS: 52318; 51705; 82365; J0744; J1100; J2405; J2704; J3010

== ENCOUNTER → 2024-03-20 07:25 | Outpatient (CLI) | payer OTHER, SELFPAY ==
[2024-03-20 08:17] LABS: Hemoglobin A1C% w Est Avg Glu 7.5 % (4.0-6.0)
[2024-03-20 08:35] LABS: Aspartate Aminotransferase 23 IU/L (17-59); BUN Creatinine Ratio 15.3 (6-22); Blood Urea Nitrogen 11 mg/dL (9-20); Calcium 9.4 mg/dL (8.4-10.2); Carbon Dioxide 24 mmol/L (22-32); Chloride 104 mmol/L (98-107); Cholesterol 144 mg/dL (140-199); Estimated Glomerular Filt Rate > 60 mL/min (>60); Glucose 132 mg/dL (80-110); HDL Cholesterol 49 mg/dL (40-60); HEMOLYSIS < 15 (0-50); LDL Cholesterol Calculated 78 mg/dL (<100); Potassium 3.6 mmol/L (3.4-5.1); Sodium 135 mmol/L (137-145); Triglycerides 85 mg/dL (35-150)
== END ==
PROVIDERS: PCP Internal Medicine; Referring Provider Internal Medicine; Visit Provider Internal Medicine
DX: E11.69 Type 2 diabetes mellitus with other specified complication (principal); E78.5 Hyperlipidemia, unspecified; N40.1 Benign prostatic hyperplasia with lower urinary tract symptoms; E78.2 Mixed hyperlipidemia
CPT/HCPCS: 36415; 80048; 80061; 83036; 84153; 84450

== ENCOUNTER → 2024-04-16 09:57 | Outpatient (CLI) | payer OTHER, SELFPAY | PROVIDERS: PCP Internal Medicine; Visit Provider Urology | DX: R33.9 Retention of urine, unspecified (principal) | CPT/HCPCS: 51702; 87077; 87086; 87186 ==

== ENCOUNTER → 2024-05-06 13:22 | Outpatient (CLI) | payer OTHER, SELFPAY ==
--- NOTE | 2024-05-06 13:23 | DI.RAD.S_ITS ---
PROCEDURE: XR KUB INDICATIONS: History of bladder calculi TECHNIQUE: One view of the abdomen acquired. COMPARISON: CT, CT KIDNEY URETER BLADDER (KUB), 12/08/2023, 9:36. FINDINGS: Surgical changes and devices: None. Bowel: Bowel gas pattern is normal. Soft tissues: Areas of calcification overlying the pelvis appearing to be is phleboliths. Visualized solid organ contours appear normal in size. Bones: No suspicious bony lesions. IMPRESSION: No definitive calcifications overlying the kidneys or bladder. Dictated by: Ngoc Vargas M.D. on 05/06/2024 at 16:08 Approved by: Ngoc Vargas M.D. on 05/06/2024 at 16:08
== END ==
PROVIDERS: PCP Internal Medicine; Referring Provider Urology; Visit Provider Urology
DX: Z09 Encounter for follow-up examination after completed treatment for conditions other than malignant neoplasm (principal); Z87.448 Personal history of other diseases of urinary system
CPT/HCPCS: 74018

== ENCOUNTER → 2024-05-13 14:01 | Outpatient (CLI) | payer OTHER, SELFPAY | PROVIDERS: PCP Internal Medicine; Visit Provider Urology | DX: R33.9 Retention of urine, unspecified (principal); Z93.59 Other cystostomy status | CPT/HCPCS: 87086 ==

== ENCOUNTER → 2024-06-11 10:29 | Outpatient (CLI) | payer OTHER, SELFPAY | PROVIDERS: PCP Internal Medicine; Visit Provider Urology | DX: Z93.59 Other cystostomy status (principal); R33.9 Retention of urine, unspecified | CPT/HCPCS: 87086 ==

== ENCOUNTER → 2024-06-20 08:08 | Outpatient (CLI) | payer OTHER, SELFPAY ==
[2024-06-20 09:06] LABS: BUN Creatinine Ratio 19.5 (6-22); Blood Urea Nitrogen 15 mg/dL (9-20); Calcium 9.2 mg/dL (8.4-10.2); Carbon Dioxide 26 mmol/L (22-32); Chloride 104 mmol/L (98-107); Estimated Glomerular Filt Rate > 60 mL/min (>60); Glucose 115 mg/dL (80-110); HEMOLYSIS < 15 (0-50); Potassium 4.3 mmol/L (3.4-5.1); Sodium 137 mmol/L (137-145)
[2024-06-20 09:57] LABS: Hemoglobin A1C% w Est Avg Glu 6.3 % (4.0-6.0)
== END ==
PROVIDERS: PCP Internal Medicine; Referring Provider Internal Medicine; Visit Provider Internal Medicine
DX: E11.69 Type 2 diabetes mellitus with other specified complication (principal); E78.5 Hyperlipidemia, unspecified
CPT/HCPCS: 36415; 80048; 83036

== ENCOUNTER → 2024-07-09 09:21 | Outpatient (CLI) | payer OTHER, SELFPAY | PROVIDERS: PCP Internal Medicine; Visit Provider Urology | DX: N40.1 Benign prostatic hyperplasia with lower urinary tract symptoms (principal) | CPT/HCPCS: 87077; 87086 ==

== ENCOUNTER → 2024-08-06 10:22 | Outpatient (CLI) | payer OTHER, SELFPAY | PROVIDERS: PCP Internal Medicine; Visit Provider Urology | DX: N40.1 Benign prostatic hyperplasia with lower urinary tract symptoms (principal); R33.9 Retention of urine, unspecified; Z93.59 Other cystostomy status | CPT/HCPCS: 87086 ==

== ENCOUNTER → 2024-09-03 09:36 | Outpatient (CLI) | payer OTHER, SELFPAY | PROVIDERS: PCP Internal Medicine; Visit Provider Urology | DX: N40.1 Benign prostatic hyperplasia with lower urinary tract symptoms (principal); R33.9 Retention of urine, unspecified; Z93.59 Other cystostomy status | CPT/HCPCS: 51705; 87077; 87086; 87147; 87186 ==

== ENCOUNTER → 2024-09-25 08:23 | Outpatient (CLI) | payer OTHER, SELFPAY ==
[2024-09-25 09:23] LABS: Hemoglobin A1C% w Est Avg Glu 6.5 % (4.0-6.0)
[2024-09-25 09:28] LABS: BUN Creatinine Ratio 22.5 (6-22); Blood Urea Nitrogen 16 mg/dL (9-20); Calcium 9.7 mg/dL (8.4-10.2); Carbon Dioxide 27 mmol/L (22-32); Chloride 102 mmol/L (98-107); Estimated Glomerular Filt Rate > 60 mL/min (>60); Glucose 119 mg/dL (80-110); HEMOLYSIS < 15 (0-50); Potassium 4.3 mmol/L (3.4-5.1); Sodium 135 mmol/L (137-145)
== END ==
PROVIDERS: PCP Internal Medicine; Referring Provider Internal Medicine; Visit Provider Internal Medicine
DX: E11.69 Type 2 diabetes mellitus with other specified complication (principal); E78.5 Hyperlipidemia, unspecified
CPT/HCPCS: 36415; 80048; 83036

== ENCOUNTER → 2024-10-02 11:10 | Outpatient (CLI) | payer OTHER, SELFPAY | PROVIDERS: PCP Internal Medicine; Visit Provider Urology | DX: Z93.59 Other cystostomy status (principal); R33.9 Retention of urine, unspecified | CPT/HCPCS: 87077; 87086 ==

== ENCOUNTER → 2024-10-29 09:59 | Outpatient (CLI) | payer OTHER, SELFPAY | PROVIDERS: PCP Internal Medicine; Visit Provider Urology | DX: N40.1 Benign prostatic hyperplasia with lower urinary tract symptoms (principal); R33.9 Retention of urine, unspecified; Z93.59 Other cystostomy status | CPT/HCPCS: 51705; 87077; 87086; 87186 ==

== ENCOUNTER → 2024-11-26 10:15 | Outpatient (CLI) | payer OTHER, SELFPAY | PROVIDERS: PCP Internal Medicine; Visit Provider Urology | DX: N40.1 Benign prostatic hyperplasia with lower urinary tract symptoms (principal); R33.9 Retention of urine, unspecified; Z93.59 Other cystostomy status | CPT/HCPCS: 51705; 87077; 87086; 87186 ==

== ENCOUNTER → 2024-12-09 10:59 | Outpatient (CLI) | payer OTHER, SELFPAY ==
--- NOTE | 2024-12-09 11:01 | DI.RAD.S_ITS ---
PROCEDURE: XR KUB INDICATIONS: Rule out recurrent bladder calculi TECHNIQUE: One view of the abdomen acquired. COMPARISON: [facility], CR, XR KUB, 05/06/2024, 13:22. FINDINGS: Surgical changes and devices: None. Bowel: Bowel gas pattern is normal. Soft tissues: Similar round calcifications project over the pelvic inlet . Bones: No suspicious bony lesions. IMPRESSION: Similar round calcifications project over the pelvic inlet, favoring pelvic phleboliths over bladder stones. Dictated by: Edgar Pope M.D. on 12/09/2024 at 14:43 Approved by: Edgar Pope M.D. on 12/09/2024 at 14:43
== END ==
PROVIDERS: PCP Internal Medicine; Referring Provider Urology; Visit Provider Urology
DX: N20.0 Calculus of kidney (principal); Z87.442 Personal history of urinary calculi; Z87.448 Personal history of other diseases of urinary system
CPT/HCPCS: 74018

== ENCOUNTER → 2024-12-27 11:13 | Outpatient (CLI) | payer OTHER, SELFPAY | PROVIDERS: PCP Internal Medicine; Visit Provider Urology | DX: Z93.59 Other cystostomy status (principal); R33.9 Retention of urine, unspecified | CPT/HCPCS: 87077; 87086; 87186 ==

== ENCOUNTER → 2025-01-21 11:35 | Outpatient (CLI) | payer OTHER, SELFPAY | PROVIDERS: PCP Internal Medicine; Visit Provider Urology | DX: R33.9 Retention of urine, unspecified (principal); Z93.59 Other cystostomy status | CPT/HCPCS: 87077; 87086 ==

== ENCOUNTER → 2025-02-17 10:28 | Outpatient (CLI) | payer OTHER, SELFPAY | PROVIDERS: PCP Internal Medicine; Visit Provider Urology | DX: R33.9 Retention of urine, unspecified (principal); Z93.59 Other cystostomy status | CPT/HCPCS: 51702; 87077; 87086; 87186 ==

== ENCOUNTER → 2025-03-10 11:29 | Outpatient (CLI) | payer OTHER, SELFPAY | LOC: RESP 11:30 | PROVIDERS: PCP Internal Medicine; Referring Provider Internal Medicine; Visit Provider Internal Medicine | DX: J45.909 Unspecified asthma, uncomplicated (principal); Z77.22 Contact with and (suspected) exposure to environmental tobacco smoke (acute) (chronic); R94.2 Abnormal results of pulmonary function studies | CPT/HCPCS: 94060; 94726; 94729 ==

== ENCOUNTER → 2025-03-17 10:07 | Outpatient (CLI) | payer OTHER, SELFPAY | PROVIDERS: PCP Internal Medicine; Visit Provider Urology | DX: N40.1 Benign prostatic hyperplasia with lower urinary tract symptoms (principal); R33.9 Retention of urine, unspecified; Z93.59 Other cystostomy status | CPT/HCPCS: 51705; 87077; 87086; 87186 ==

== ENCOUNTER → 2025-03-19 07:42 | Outpatient (CLI) | payer OTHER, SELFPAY ==
[2025-03-19 08:54] LABS: Hemoglobin A1C% w Est Avg Glu 6.3 % (4.0-6.0)
[2025-03-19 08:57] LABS: Aspartate Aminotransferase 23 IU/L (17-59); BUN Creatinine Ratio 22.1 (6-22); Blood Urea Nitrogen 17 mg/dL (9-20); Calcium 9.3 mg/dL (8.4-10.2); Carbon Dioxide 26 mmol/L (22-32); Chloride 103 mmol/L (98-107); Cholesterol 145 mg/dL (140-199); Estimated Glomerular Filt Rate > 60 mL/min (>60); Glucose 122 mg/dL (70-99); HDL Cholesterol 56 mg/dL (40-60); HEMOLYSIS < 15 (0-50); LDL Cholesterol Calculated 75 mg/dL (<100); Potassium 4.2 mmol/L (3.4-5.1); Sodium 136 mmol/L (137-145); Triglycerides 70 mg/dL (35-150)
[2025-03-19 09:29] LABS: Prostate Specific Antigen 0.658 ng/mL (0.10-4.00)
[2025-03-19 12:00] LABS: Microalbumin Urine Random 1.2 mg/dL (0-1.6)
== END ==
PROVIDERS: PCP Internal Medicine; Referring Provider Internal Medicine; Visit Provider Internal Medicine
DX: E11.21 Type 2 diabetes mellitus with diabetic nephropathy (principal); N40.1 Benign prostatic hyperplasia with lower urinary tract symptoms; E78.2 Mixed hyperlipidemia
CPT/HCPCS: 36415; 80048; 80061; 82043; 82570; 83036; 84153; 84450

== ENCOUNTER → 2025-04-22 14:28 | Outpatient (CLI) | payer OTHER, SELFPAY | PROVIDERS: PCP Internal Medicine; Referring Provider Internal Medicine Critical Care Medicine; Visit Provider Internal Medicine Critical Care Medicine | DX: J44.9 Chronic obstructive pulmonary disease, unspecified (principal) | CPT/HCPCS: 82103 ==

== ENCOUNTER → 2025-04-24 12:38 | Outpatient (CLI) | payer OTHER, SELFPAY ==
--- NOTE | 2025-04-24 12:39 | DI.CT.S_ITS ---
PROCEDURE: CT CHEST WO CON INDICATIONS: Emphysema, eval for change TECHNIQUE: Noncontrast 5 mm thick sections acquired from the pulmonary apices to the posterior costophrenic angles. 1 mm lung window, 5 mm thick coronal and sagittal and 7 mm axial MIP reformats were then acquired. For radiation dose reduction, the following was used: automated exposure control, adjustment of mA and/or kV according to patient size. COMPARISON: CT chest 04/28/2021. FINDINGS: Image quality: Diagnostic. Lower Neck: No enlarged lymph nodes. Thyroid: No thyroid nodules which require sonographic follow up, per consensus guidelines. Axillae: No enlarged lymph nodes. Chest Wall: Unremarkable. Bones: Unremarkable. Lungs and Pleura: No pneumothorax or pleural effusions. No consolidation. Mild right basal atelectasis. Mild emphysematous changes. Stable scattered solid pulmonary nodules, for example left upper lobe measuring 4 mm (3/61, MIP image 33). No new or enlarging pulmonary nodules. Heart: Heart size is normal. No pericardial effusion. Thoracic Vessels: The aorta and pulmonary arteries demonstrate normal size. Mediastinum and Zee: No enlarged lymph nodes. Esophagus: No wall thickening. No hiatal hernia. Upper Abdomen: Visualized upper abdomen solid organs and bowel loops appear normal. IMPRESSION: Mild centrilobular emphysema predominantly in the bilateral upper lungs without significant change since prior CT in 2020. Stable solid pulmonary nodules measuring less than 6 mm. No new or enlarging pulmonary nodules. Approved by: Catalina Avina M.D.,Ph.D. on 04/25/2025 at 13:45
== END ==
PROVIDERS: PCP Internal Medicine; Referring Provider Internal Medicine Critical Care Medicine; Visit Provider Internal Medicine Critical Care Medicine
DX: J43.2 Centrilobular emphysema (principal); R91.8 Other nonspecific abnormal finding of lung field
CPT/HCPCS: 71250

== ENCOUNTER → 2025-06-10 10:40 | Outpatient (CLI) | payer OTHER, SELFPAY | PROVIDERS: PCP Internal Medicine; Visit Provider Urology | DX: N40.1 Benign prostatic hyperplasia with lower urinary tract symptoms (principal); R33.9 Retention of urine, unspecified; Z93.59 Other cystostomy status | CPT/HCPCS: 51705; 87077; 87086; 87186 ==

== ENCOUNTER → 2025-08-05 09:49 | Outpatient (CLI) | payer OTHER, SELFPAY | PROVIDERS: PCP Internal Medicine; Visit Provider Urology | DX: N40.1 Benign prostatic hyperplasia with lower urinary tract symptoms (principal); R33.9 Retention of urine, unspecified; Z93.59 Other cystostomy status | CPT/HCPCS: 51705; 87077; 87086; 87186 ==

== ENCOUNTER → 2025-08-19 07:39 | Outpatient (CLI) | payer OTHER, SELFPAY ==
[2025-08-19 08:45] LABS: Blood Urea Nitrogen 16 mg/dL (9-20); Calcium 9.4 mg/dL (8.4-10.2); Carbon Dioxide 26 mmol/L (22-32); Chloride 103 mmol/L (98-107); Estimated Glomerular Filt Rate > 60 mL/min (>60); Glucose 124 mg/dL (70-99); HEMOLYSIS < 15 (0-50); Potassium 4.2 mmol/L (3.4-5.1); Sodium 137 mmol/L (137-145)
[2025-08-19 08:51] LABS: Hemoglobin A1C% w Est Avg Glu 6.5 % (4.0-6.0)
== END ==
PROVIDERS: PCP Internal Medicine; Referring Provider Internal Medicine; Visit Provider Internal Medicine
DX: E11.21 Type 2 diabetes mellitus with diabetic nephropathy (principal); E11.40 Type 2 diabetes mellitus with diabetic neuropathy, unspecified
CPT/HCPCS: 36415; 80048; 83036